=== PATIENT | female | born 1965 | race Caucasian/White ===

== ENCOUNTER → 2016-12-02 | Outpatient (CLI) | payer SELFPAY ==
[~2016-12-02] MED LIST: ADV250INH INH; AVEL1TAB PO; LORA1TAB12 PO; NICO21DI5 TD; OMEP40CA2 PO; PARO20TA2 PO; PRED20TA PO; PROA1AER INH; TYLE325T5 PO; ZITHTAB PO
[2016-12-02 14:39] LABS: MEAN CORPUSCULAR HEMOGLOBIN 31.4 pg (27.0-33.0); MEAN CORPUSCULAR HGB CONC 34.5 g/dl (32.0-36.5); MEAN CORPUSCULAR VOLUME 90.9 fl (80.0-96.0); WHITE BLOOD COUNT 7.1 K/mm3 (4.0-10.0)
[2016-12-02 14:41] LABS: ALBUMIN 3.9 GM/DL (3.2-5.2); ALBUMIN/GLOBULIN RATIO 1.39 (1.00-1.93); ALKALINE PHOSPHATASE 137 U/L (45-117); ALT/SGPT 13 U/L (12-78); ANION GAP 10 MEQ/L (8-16); AST/SGOT 8 U/L (15-37); BILIRUBIN,TOTAL 0.4 MG/DL (0.2-1.0); BLOOD UREA NITROGEN 9 MG/DL (7-18); CALCIUM LEVEL 9.5 MG/DL (8.5-10.1); CARBON DIOXIDE LEVEL 29 MEQ/L (21-32); CHLORIDE LEVEL 105 MEQ/L (98-107); CHOLESTEROL LEVEL 224 MG/DL (<200); CREATININE FOR GFR 0.56 MG/DL (0.55-1.02); GLOMERULAR FILTRATION RATE > 60.0 (>51); GLUCOSE, FASTING 77 MG/DL (70-105); POTASSIUM SERUM 4.2 MEQ/L (3.5-5.1); SODIUM LEVEL 144 MEQ/L (136-145); TOTAL PROTEIN 6.7 GM/DL (6.4-8.2); TRIGLYCERIDES LEVEL 121 MG/DL (<150)
[2016-12-02 15:11] LABS: BASOPHILS 2 % (0-4); EOSINOPHILS 2 % (0-5)
[2016-12-02 15:12] LABS: ANISOCYTOSIS 1+
== END ==
LOC: M LAB 12:46
PROVIDERS: ATTEND Physician Assistant Medical
DX: E66.9 Obesity, unspecified (principal); E55.9 Vitamin D deficiency, unspecified

== ENCOUNTER 2017-10-19 07:10 | Inpatient (IN) | payer SELFPAY ==
[~2017-10-19] VITALS: Ht 165.1 cm; Wt 105.0 kg
[~2017-10-19 07:10] MED LIST changes: -AVEL1TAB PO; +AVEL1TAB3 PO; -PARO20TA2 PO; +PARO20TA3 PO; -PROA1AER INH; +PROAAER10 INH
[2017-10-19] MEDS ORDERED: VITA1CAP40 PO (07:31)
[2017-10-19] MEDS ORDERED: NS 500 ML IV ONE (07:45)
[2017-10-19] MEDS ORDERED: ACETAMINOPHEN 325 MG TAB As Ordered ONE (07:59)
[2017-10-19] MEDS ORDERED: ACETAMINOPHEN TAB 650MG DOSE (2X325MG) PO ONE (08:00)
[2017-10-19 08:04] LABS: BASO % 0.2 % (0.0-1.0); IMMATURE GRANULOCYTE % 0.3 % (0-0); LYMPH # 0.8 10^3/uL (1.5-4.5); MEAN CORPUSCULAR HEMOGLOBIN 30.3 pg (27.0-33.0); MEAN CORPUSCULAR HGB CONC 33.5 g/dl (32.0-36.5); MEAN CORPUSCULAR VOLUME 90.2 fl (80.0-96.0); MONO # 0.8 10^3/uL (0.0-0.8); NEUTROPHILS # 8.5 10^3/uL (1.8-7.7); NEUTROPHILS % 83.5 % (36.0-66.0); PLATELET COUNT, AUTOMATED 122 10^3/uL (150-450); RED CELL DISTRIBUTION WIDTH 12.9 % (11.5-14.5); WHITE BLOOD COUNT 10.2 10^3/uL (4.0-10.0)
[2017-10-19] MEDS ORDERED: IPRATROPIUM 0.5MG/ALBUTEROL 2.5MG INH SOL UD 3ML (DUONEB)(J7620) NEB ONE (08:15)
[2017-10-19] MEDS ORDERED: methylPREDNISolone INJ 125 MG/2 ML VIAL (J2930) IV ONE (08:15)
[2017-10-19 08:30] LABS: ALBUMIN 3.3 GM/DL (3.2-5.2); ALBUMIN/GLOBULIN RATIO 0.85 (1.00-1.93); ALKALINE PHOSPHATASE 107 U/L (45-117); ALT/SGPT 20 U/L (12-78); AST/SGOT 22 U/L (7-37); BILIRUBIN,DIRECT < 0.1 MG/DL (0.0-0.2); BILIRUBIN,TOTAL 0.3 MG/DL (0.2-1.0); TOTAL PROTEIN 7.2 GM/DL (6.4-8.2)
--- NOTE | 2017-10-19 09:04 | REP ---
Chest, PA and lateral, 10/19/2017: Comparison 03/10/2014, 02/11/2007. Clinical history: Dyspnea, cough. Findings: Two-views show the lung lanza with slight elevation of the right diaphragm. Bibasilar air space opacities, greater on the right than left suggesting basilar infiltrates or atelectasis. I do not see definite effusions. The aortic arch is mildly tortuous and without aneurysm. Airway intact. The study shows pulmonary venous hypertension. No stella edema. Airway midline. Bony thorax without compression deformity or degenerative changes in the spine. Impression: 1. Patchy bibasilar infiltrates, right greater than left, without gross effusion. 2. Pulmonary venous hypertension without cardiomegaly or stella edema. Signed by Shayan Billy MD 10/19/2017 08:25 P
[2017-10-19] MEDS ORDERED: ALKATAB PO (09:49)
[2017-10-19] MEDS ORDERED: PARO40TA2 PO (09:49)
[2017-10-19 10:26] LABS: ANION GAP 9 MEQ/L (8-16); BLOOD UREA NITROGEN 6 MG/DL (7-18); CARBON DIOXIDE LEVEL 28 MEQ/L (21-32); CHLORIDE LEVEL 100 MEQ/L (98-107); GLOMERULAR FILTRATION RATE > 60.0 (>51); GLUCOSE, FASTING 138 MG/DL (70-105); POTASSIUM SERUM 3.6 MEQ/L (3.5-5.1); SODIUM LEVEL 137 MEQ/L (136-145)
[2017-10-19] MEDS ORDERED: LevoFLOXacin IV 750 MG in APPROPRIATE DILUENT 1 EA IV ONE (11:00)
[2017-10-19] MEDS ORDERED: ACETAMINOPHEN TAB 650MG DOSE (2X325MG) PO PRN (11:30)
[2017-10-19] MEDS ORDERED: LORazepam 1 MG TAB PO PRN (11:30)
[2017-10-19] MEDS ORDERED: SODIUM CHLORIDE 0.9% 1000 ML IV ONE (11:30)
[2017-10-19] MEDS ORDERED: IPRATROPIUM 0.5MG/ALBUTEROL 2.5MG INH SOL UD 3ML (DUONEB)(J7620) NEB PRN (11:30)
[2017-10-19 12:02] LABS: INR 1.06
[2017-10-19] MEDS: PARoxetine 20 MG TAB PO SCH (12:07)
[2017-10-19] MEDS: ENOXAPARIN 40 MG/0.4 ML SYRINGE (J1650) SC SCH (12:07)
--- NOTE | 2017-10-19 12:34 | ECGEPIP ---
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
[2017-10-19] MEDS: NS 1,000 ML IV SCH (13:45)
[2017-10-19] MEDS: IPRATROPIUM 0.5MG/ALBUTEROL 2.5MG INH SOL UD 3ML (DUONEB)(J7620) NEB SCH ×2 (13:54→19:38)
[2017-10-19 14:15] VITALS: BP 110/57
--- NOTE | 2017-10-19 14:15 | HPEPDOC ---
General Date of Admission Oct 19, 2017 at 13:04 Chief Complaint The patient is a 52-year-old female Presented to the emergency room with complaints of shortness of breath and productive cough History of Present Illness Patient is a 52-year-old female with a PMHx of COPD and Anxiety / Depression who presented to the ER with complaints of shortness of breath for 1- 2 weeks duration associated with a productive cough. She describes the sputum as brown/green without any evidence of blood. Patient also noted associated fevers at home as well as chills and sweats. Patient denies any lower extremity swelling has excretes frequent nighttime awakenings because of shortness of breath. She has also reported increased use of her inhalers. Patient last seen her primary care provider Joyce Daniel one month ago. However, she has not have an established pulmonary physician. Patient noted dizziness and lightheadedness, but she denies any loss of consciousness. He has been expressing palpitations but does not express any chest pain. Denies any nausea, vomiting, abdominal pain, constipation or dysuria. She has extensive single episode of diarrhea this morning, described as a loose stool without any evidence of blood. Patient denies any change in weight, but she does not report appetite Home Medications Scheduled Ergocalciferol (Vitamin D) 50,000 Unit Cap, 50,000 UNIT PO QWEEK, (Reported) SUNDAYS Paroxetine (Paroxetine HCl) 40 Mg Tab, 40 MG PO DAILY, (Reported) Scheduled PRN ([place]ode[place] Plus Severe 5-2-10-250 mg) 1 Tab Tab, 1 TAB PO PRN PRN for COLD, (Reported) Acetaminophen (Tylenol) 325 Mg Tab, 1,000 MG PO Q6H PRN for PAIN OR FEVER, ( Reported) Albuterol Sulfate (Proair Hfa) 108 Mcg/Act Aer, 2 PUFFS INH Q4H PRN for SHORTNESS OF BREATH, (Reported) Lorazepam (Lorazepam) 1 Mg Tab, 1 MG PO BID PRN for ANXIETY, (Reported) Allergies Coded Allergies: No Known Allergies (Unverified , 09/15/13) Past Medical History Medical History COPD and Anxiety / Depression Surgical History Cholecystectomy 2013 section 1990 Hemorrhoid banding 2015 Family History - Mother, unknown medical history - Father, liver issues - No history of malignancies Social History - Denies the use of illicit drugs or alcohol; current smoker of 30 years at 1-2 PPD - Denies recent travel or sick contacts - Lives with in [place] - Occupation; [id number] Review of Symptoms Other systems 10 point review of systems negative; otherwise stated in HPI Vital Signs - Vitals: BP 134/59, HR 104, RR 18, Sat 94%NC2L, Temp 103.5 - General: Lying in bed, No acute distress, Speaking in full sentences, AAOx3 - HEENT: NC, AT, PERRLA, EOMI - CVS: Tachycardic, Regular, +S1S2 - Lungs: Diminished breath sounds bilaterally; no appreciable rhonchi or wheezing could be heard - Abdomen: Soft, Non-distended, Non-tender - Extremities: No lower extremity edema, No calf tenderness - Neuro: No focal motor or sensory deficit - Skin: No visible rashes Laboratory Data Labs 24H Laboratory Tests 2 10/19/17 07:52: Immature Granulocyte % (Auto) 0.3H, White Blood Count 10.2H, Red Blood Count 5.42H, Hemoglobin 16.4H, Hematocrit 48.9H, Mean Corpuscular Volume 90.2, Mean Corpuscular Hemoglobin 30.3, Mean Corpuscular Hemoglobin Concent 33.5, Red Cell Distribution Width 12.9, Platelet Count 122L, Neutrophils (%) (Auto) 83.5H, Lymphocytes (%) (Auto) 8.0L, Monocytes (%) (Auto) 8.0H, Eosinophils (%) (Auto) 0.0, Basophils (%) (Auto) 0.2, Neutrophils # (Auto) 8.5H, Lymphocytes # (Auto) 0.8L, Monocytes # (Auto) 0.8, Eosinophils # (Auto) 0.0, Basophils # (Auto) 0.0, Immature Granulocyte # (Auto) 0.0, Nucleated Red Blood Cells % (auto) 0.0, Anion Gap 9, Glomerular Filtration Rate > 60.0, Lactic Acid Level 1.0, Blood Urea Nitrogen 6L, Creatinine 0.60, Sodium Level 137, Potassium Level 3.6, Chloride Level 100, Carbon Dioxide Level 28, Calcium Level 8.0L, Total Creatine Kinase 203H, Aspartate Amino Transf (AST/SGOT) 22, Alanine Aminotransferase (ALT /SGPT) 20, Alkaline Phosphatase 107, Total Bilirubin 0.3, Direct Bilirubin < 0.1 , Creatine Kinase MB 1.0, Creatine Kinase MB Relative Index 0.49, Troponin I < 0.02, OM-Zmt-S-Type Natriuretic Peptide 43, Total Protein 7.2, Albumin 3.3, Albumin/Globulin Ratio 0.85L 10/19/17 11:36: Prothrombin Time 13.9, Prothromb Time International Ratio 1.06 10/19/17 13:50: CBC/BMP Laboratory Tests 10/19/17 07:52 Red Blood Count 5.42 H, Mean Corpuscular Volume 90.2, Mean Corpuscular Hemoglobin 30.3, Mean Corpuscular Hemoglobin Concent 33.5, Red Cell Distribution Width 12.9, Neutrophils (%) (Auto) 83.5 H, Lymphocytes (%) (Auto) 8.0 L, Monocytes (%) (Auto) 8.0 H, Eosinophils (%) (Auto) 0.0, Basophils (%) ( Auto) 0.2, Neutrophils # (Auto) 8.5 H, Lymphocytes # (Auto) 0.8 L, Monocytes # ( Auto) 0.8, Eosinophils # (Auto) 0.0, Basophils # (Auto) 0.0, Calcium Level 8.0 L , Total Creatine Kinase 203 H Microbiology Microbiology 10/19/17 Blood Culture, Received Pending 10/19/17 Blood Culture, Received Pending 10/19/17 Gram Stain - Final, Resulted 10/19/17 Sputum Culture, Resulted Pending Plan / VTE VTE Prophylaxis Ordered?: Yes Plan Plan Dyspnea - likely 2/2 acute hypoxic respiratory failure likely 2/2 community acquired pneumonia, possible acute COPD exacerbation - Presented to the ER with shortness of breath, productive cough and fevers and chills at home - Physical reveals diminished air entry bilaterally, was noted to have a fever in the emergency room - WBC count of 10.2 with a neutrophil predominance, no lactic acidosis - CXR 10/19: Patchy bibasilar infiltrates, right greater than left without gross effusion, pulmonary venous hypertension without cardiomegaly or stella edema - s/p Levaquin 750 IV and Methylprednisolone 125 in ER - Blood cultures and sputum cultures pending - Will continue with Levaquin and Solu-Medrol every 8 hours - Will continue with DuoNeb scheduled and when necessary - Will give gentle IV fluid hydration Polycythemia - likely 2/2 hemo-concentration - Will continue with gentle IV fluid hydration Thrombocytopenia - Review of records indicates that shes got a history of this back in 2013 - No evidence of bleeding - Well send for hepatitis panel and HIV test (advised patient that we will be testing for these) - Will follow CBC Anxiety / Depression - c/w paroxetine and lorazepam DVT prophylaxis - Will start Lovenox QING SUBRAMANIAN MD Oct 19, 2017 14:15
[2017-10-19 16:00] VITALS: BP 125/63; PULSE 86
[2017-10-19] MEDS: methylPREDNISolone INJ 125 MG/2 ML VIAL (J2930) IV SCH ×2 (16:43→23:41)
[2017-10-19 19:45] VITALS: O2SAT 93
[2017-10-19 20:00] VITALS: BP 113/64
[2017-10-20] VITALS: BP 105/59
[2017-10-20] MEDS: IPRATROPIUM 0.5MG/ALBUTEROL 2.5MG INH SOL UD 3ML (DUONEB)(J7620) NEB SCH ×4 (00:56→19:14)
[2017-10-20] MEDS: NS 1,000 ML IV SCH (00:59)
[2017-10-20 04:00] VITALS: BP 126/61
[2017-10-20 07:27] LABS: BASO % 0.2 % (0.0-1.0); IMMATURE GRANULOCYTE % 0.5 % (0-0); LYMPH # 1.1 10^3/uL (1.5-4.5); LYMPH % 8.4 % (24.0-44.0); MEAN CORPUSCULAR HEMOGLOBIN 29.9 pg (27.0-33.0); MEAN CORPUSCULAR HGB CONC 32.8 g/dl (32.0-36.5); MEAN CORPUSCULAR VOLUME 91.1 fl (80.0-96.0); MONO # 0.5 10^3/uL (0.0-0.8); MONO % 3.7 % (0.0-5.0); NEUTROPHILS # 11.2 10^3/uL (1.8-7.7); NEUTROPHILS % 87.2 % (36.0-66.0); PLATELET COUNT, AUTOMATED 115 10^3/uL (150-450); RED CELL DISTRIBUTION WIDTH 12.9 % (11.5-14.5); WHITE BLOOD COUNT 12.8 10^3/uL (4.0-10.0)
[2017-10-20 07:34] LABS: ALBUMIN 2.9 GM/DL (3.2-5.2); ALBUMIN/GLOBULIN RATIO 0.76 (1.00-1.93); ALKALINE PHOSPHATASE 87 U/L (45-117); ALT/SGPT 19 U/L (12-78); ANION GAP 6 MEQ/L (8-16); AST/SGOT 19 U/L (7-37); BILIRUBIN,TOTAL 0.2 MG/DL (0.2-1.0); BLOOD UREA NITROGEN 8 MG/DL (7-18); CALCIUM LEVEL 8.1 MG/DL (8.5-10.1); CARBON DIOXIDE LEVEL 29 MEQ/L (21-32); CHLORIDE LEVEL 108 MEQ/L (98-107); CREATININE FOR GFR 0.52 MG/DL (0.55-1.02); GLOMERULAR FILTRATION RATE > 60.0 (>51); GLUCOSE, FASTING 149 MG/DL (70-105); POTASSIUM SERUM 3.9 MEQ/L (3.5-5.1); SODIUM LEVEL 143 MEQ/L (136-145); TOTAL PROTEIN 6.7 GM/DL (6.4-8.2)
[2017-10-20 08:00] VITALS: BP 124/60
[2017-10-20] MEDS: methylPREDNISolone INJ 125 MG/2 ML VIAL (J2930) IV SCH ×2 (08:17→16:00)
[2017-10-20] MEDS: ENOXAPARIN 40 MG/0.4 ML SYRINGE (J1650) SC SCH (08:18)
[2017-10-20] MEDS: PARoxetine 20 MG TAB PO SCH (08:18)
[2017-10-20] MEDS: NICOTINE 21MG/24HR 1 EA TRANSDERMAL TD SCH (12:00)
[2017-10-20] MEDS: LevoFLOXacin IV 750 MG in APPROPRIATE DILUENT 1 EA IV SCH (12:00)
--- NOTE | 2017-10-20 12:51 | IPNPDOC ---
Text Note Date of Service The patient was seen on 10/20/17. NOTE Subjective: Patient is a 52-year-old female with a PMHx of COPD and Anxiety / Depression who presented to the ER with complaints of shortness of breath for 1- 2 weeks duration associated with a productive cough. She was admitted for acute COPD exacerbation and community acquired pneumonia. Patient was seen and examined at the bedside. Clinically, she notes improvement in her breathing. She denies any wheezing. Does note that she is still experiencing a mild cough. Objective: Vitals (See below) General: Lying in bed, no acute distress, comfortable, AAOx3 HEENT: NC, AT CVS: RRR, +S1S2 Lungs: Fair air entry b/l, expiratory wheezing bilaterally Abdomen: Soft, ND, NT Extremities: - Edema, - Calf tenderness Assessment and plan: Dyspnea - likely 2/2 acute hypoxic respiratory failure - likely 2/2 community acquired pneumonia and acute COPD exacerbation - Clinically has had improvement in her breathing, still notes a mild cough - Physical reveals wheezing bilaterally - CXR 10/19: Patchy bibasilar infiltrates, right greater than left without gross effusion, pulmonary venous hypertension without cardiomegaly or stella edema - Blood cultures 10/19: Negative at 24 hours; Sputum cultures 10/19: pending - c/w Levaquin 750IV and Solu-Medrol every 8 hours - c/w DuoNeb schedule & PRN - Will discontinue IV fluid hydration today s/p Polycythemia - likely 2/2 hemo-concentration - Will discontinue IV fluid hydration today Thrombocytopenia - Review of records indicates that shes got a history of this back in 2013 - No evidence of bleeding - Patient refused to be tested for hepatitis and HIV test - Will follow CBC Anxiety / Depression - c/w paroxetine and lorazepam DVT prophylaxis - c/w Lovenox VS,Fishbone, I+O VS, Fishbone, I+O Laboratory Tests 10/20/17 06:39 Red Blood Count 5.18, Mean Corpuscular Volume 91.1, Mean Corpuscular Hemoglobin 29.9, Mean Corpuscular Hemoglobin Concent 32.8, Red Cell Distribution Width 12.9 , Neutrophils (%) (Auto) 87.2 H, Lymphocytes (%) (Auto) 8.4 L, Monocytes (%) ( Auto) 3.7, Eosinophils (%) (Auto) 0.0, Basophils (%) (Auto) 0.2, Neutrophils # ( Auto) 11.2 H, Lymphocytes # (Auto) 1.1 L, Monocytes # (Auto) 0.5, Eosinophils # (Auto) 0.0, Basophils # (Auto) 0.0, Calcium Level 8.1 L, Aspartate Amino Transf (AST/SGOT) 19, Alanine Aminotransferase (ALT/SGPT) 19, Alkaline Phosphatase 87, Total Bilirubin 0.2, Total Protein 6.7, Albumin 2.9 L Vital Signs Date Time Temp Pulse Resp B/P (MAP) Pulse Ox O2 Delivery O2 Flow Rate FiO2 10/20/17 08:49 16 10/20/17 08:35 94 10/20/17 04:00 98.1 126/61 (82) 96 Nasal Cannula 2.0 10/19/17 16:00 91 QING SUBRAMANIAN MD Oct 20, 2017 12:51
[2017-10-20 16:55] VITALS: BP 107/59
[2017-10-20 20:00] VITALS: BP 123/58
[2017-10-21] VITALS: BP 141/83
[2017-10-21] MEDS: methylPREDNISolone INJ 125 MG/2 ML VIAL (J2930) IV SCH ×3 (00:08→20:00)
[2017-10-21] MEDS: IPRATROPIUM 0.5MG/ALBUTEROL 2.5MG INH SOL UD 3ML (DUONEB)(J7620) NEB SCH ×4 (01:06→20:28)
[2017-10-21] MEDS: LORazepam 0.5 MG TAB PO PRN (06:52)
[2017-10-21 08:00] VITALS: BP 124/62
[2017-10-21 08:01] LABS: BASO % 0.1 % (0.0-1.0); IMMATURE GRANULOCYTE % 0.5 % (0-0); LYMPH # 0.9 10^3/uL (1.5-4.5); LYMPH % 6.1 % (24.0-44.0); MEAN CORPUSCULAR HGB CONC 32.3 g/dl (32.0-36.5); MEAN CORPUSCULAR VOLUME 92.7 fl (80.0-96.0); MONO # 0.7 10^3/uL (0.0-0.8); MONO % 4.6 % (0.0-5.0); NEUTROPHILS # 12.6 10^3/uL (1.8-7.7); NEUTROPHILS % 88.7 % (36.0-66.0); PLATELET COUNT, AUTOMATED 108 10^3/uL (150-450); RED CELL DISTRIBUTION WIDTH 13.2 % (11.5-14.5); WHITE BLOOD COUNT 14.2 10^3/uL (4.0-10.0)
[2017-10-21] MEDS: PARoxetine 20 MG TAB PO SCH (08:22)
[2017-10-21] MEDS: NICOTINE 21MG/24HR 1 EA TRANSDERMAL TD SCH (08:22)
[2017-10-21] MEDS: ENOXAPARIN 40 MG/0.4 ML SYRINGE (J1650) SC SCH (08:22)
[2017-10-21 08:38] LABS: ALBUMIN 2.8 GM/DL (3.2-5.2); ALBUMIN/GLOBULIN RATIO 0.76 (1.00-1.93); ALKALINE PHOSPHATASE 85 U/L (45-117); ALT/SGPT 26 U/L (12-78); ANION GAP 6 MEQ/L (8-16); AST/SGOT 28 U/L (7-37); BILIRUBIN,TOTAL 0.3 MG/DL (0.2-1.0); BLOOD UREA NITROGEN 9 MG/DL (7-18); CALCIUM LEVEL 8.3 MG/DL (8.5-10.1); CARBON DIOXIDE LEVEL 32 MEQ/L (21-32); CHLORIDE LEVEL 105 MEQ/L (98-107); CREATININE FOR GFR 0.41 MG/DL (0.55-1.02); GLOMERULAR FILTRATION RATE > 60.0 (>51); GLUCOSE, FASTING 130 MG/DL (70-105); MAGNESIUM LEVEL 2.3 MG/DL (1.8-2.4); POTASSIUM SERUM 3.7 MEQ/L (3.5-5.1); SODIUM LEVEL 143 MEQ/L (136-145); TOTAL PROTEIN 6.5 GM/DL (6.4-8.2)
[2017-10-21] MEDS: LevoFLOXacin IV 750 MG in APPROPRIATE DILUENT 1 EA IV SCH (11:26)
--- NOTE | 2017-10-21 13:04 | IPNPDOC ---
Text Note Date of Service The patient was seen on 10/21/17. NOTE Subjective: Patient is a 52-year-old female with a PMHx of COPD and Anxiety / Depression who presented to the ER with complaints of shortness of breath for 1- 2 weeks duration associated with a productive cough. She was admitted for acute COPD exacerbation and community acquired pneumonia. Patient was seen and examined at the bedside. Notes that she feels better than when she first came in. Still has wheezing. Notes improvement in her shortness of breath. Denies any chest pain or palpitations. Objective: Vitals (See below) General: Lying in bed, no acute distress, comfortable, AAOx3 HEENT: NC, AT CVS: RRR, +S1S2 Lungs: Fair air entry b/l, expiratory wheezing bilaterally again appreciated Abdomen: Soft, ND, NT Extremities: - Edema, - Calf tenderness Assessment and plan: Dyspnea - likely 2/2 acute hypoxic respiratory failure - likely 2/2 community acquired pneumonia and acute COPD exacerbation - Breathing continues to improve; but physical still reveals expiratory wheezing - Still on supplemental oxygen; will continue to titrate - CXR 10/19: Patchy bibasilar infiltrates, right greater than left without gross effusion, pulmonary venous hypertension without cardiomegaly or stella edema - Blood cultures 10/19: Negative at 48 hours; Sputum cultures 10/19: Strep pneumonia - c/w Levaquin 750IV; c/w Solumedrol - will reduce frequency - c/w DuoNeb schedule & PRN s/p Polycythemia - likely 2/2 hemo-concentration - s/p IV fluid hydration today Thrombocytopenia - Review of records indicates that shes got a history of this back in 2013 - Again no evidence of bleeding - Patient refused to be tested for hepatitis and HIV test Anxiety / Depression - c/w paroxetine and lorazepam DVT prophylaxis - Will start SCDs - Will DC Lovenox VS,Fishbone, I+O VS, Fishbone, I+O Laboratory Tests 10/21/17 07:35 Red Blood Count 4.94, Mean Corpuscular Volume 92.7, Mean Corpuscular Hemoglobin 30.0, Mean Corpuscular Hemoglobin Concent 32.3, Red Cell Distribution Width 13.2 , Neutrophils (%) (Auto) 88.7 H, Lymphocytes (%) (Auto) 6.1 L, Monocytes (%) ( Auto) 4.6, Eosinophils (%) (Auto) 0.0, Basophils (%) (Auto) 0.1, Neutrophils # ( Auto) 12.6 H, Lymphocytes # (Auto) 0.9 L, Monocytes # (Auto) 0.7, Eosinophils # (Auto) 0.0, Basophils # (Auto) 0.0, Calcium Level 8.3 L, Aspartate Amino Transf (AST/SGOT) 28, Alanine Aminotransferase (ALT/SGPT) 26, Alkaline Phosphatase 85, Total Bilirubin 0.3, Total Protein 6.5, Albumin 2.8 L Vital Signs Date Time Temp Pulse Resp B/P (MAP) Pulse Ox O2 Delivery O2 Flow Rate FiO2 10/21/17 08:00 97.7 76 22 124/62 (82) 98 Nasal Cannula 2.0 10/19/17 16:00 91 I&O- Last 24 Hours up to 6 AM 10/22/17 06:00 Intake Total 120 ml Output Total 300 ml Balance -180 ml QING SUBRAMANIAN MD Oct 21, 2017 13:04
[2017-10-21 16:00] VITALS: BP 133/72
[2017-10-21 20:00] VITALS: BP 136/65
[2017-10-22] MEDS: IPRATROPIUM 0.5MG/ALBUTEROL 2.5MG INH SOL UD 3ML (DUONEB)(J7620) NEB SCH ×4 (02:50→20:09)
[2017-10-22 04:00] VITALS: BP 132/68
[2017-10-22] MEDS ORDERED: LevoFLOXacin 750 MG TABLET PO SCH (06:00)
[2017-10-22 07:30] LABS: BASO % 0.3 % (0.0-1.0); IMMATURE GRANULOCYTE % 0.9 % (0-0); LYMPH # 1.1 10^3/uL (1.5-4.5); LYMPH % 9.9 % (24.0-44.0); MEAN CORPUSCULAR HEMOGLOBIN 30.1 pg (27.0-33.0); MEAN CORPUSCULAR HGB CONC 32.4 g/dl (32.0-36.5); MONO # 0.8 10^3/uL (0.0-0.8); NEUTROPHILS # 9.1 10^3/uL (1.8-7.7); NEUTROPHILS % 81.9 % (36.0-66.0); PLATELET COUNT, AUTOMATED 123 10^3/uL (150-450); WHITE BLOOD COUNT 11.1 10^3/uL (4.0-10.0)
[2017-10-22] MEDS: methylPREDNISolone INJ 125 MG/2 ML VIAL (J2930) IV SCH ×2 (07:55→21:40)
[2017-10-22 07:56] LABS: ALBUMIN 2.9 GM/DL (3.2-5.2); ALBUMIN/GLOBULIN RATIO 0.85 (1.00-1.93); ALKALINE PHOSPHATASE 82 U/L (45-117); ALT/SGPT 50 U/L (12-78); ANION GAP 6 MEQ/L (8-16); AST/SGOT 50 U/L (7-37); BILIRUBIN,TOTAL 0.4 MG/DL (0.2-1.0); BLOOD UREA NITROGEN 10 MG/DL (7-18); CALCIUM LEVEL 8.5 MG/DL (8.5-10.1); CARBON DIOXIDE LEVEL 33 MEQ/L (21-32); CHLORIDE LEVEL 104 MEQ/L (98-107); CREATININE FOR GFR 0.49 MG/DL (0.55-1.02); GLOMERULAR FILTRATION RATE > 60.0 (>51); GLUCOSE, FASTING 109 MG/DL (70-105); MAGNESIUM LEVEL 2.5 MG/DL (1.8-2.4); POTASSIUM SERUM 3.5 MEQ/L (3.5-5.1); SODIUM LEVEL 143 MEQ/L (136-145); TOTAL PROTEIN 6.3 GM/DL (6.4-8.2)
[2017-10-22 08:00] VITALS: BP 133/68
[2017-10-22] MEDS: NICOTINE 21MG/24HR 1 EA TRANSDERMAL TD SCH (09:00)
[2017-10-22] MEDS: PARoxetine 20 MG TAB PO SCH (10:11)
[2017-10-22] MEDS: LevoFLOXacin IV 750 MG in APPROPRIATE DILUENT 1 EA IV SCH (10:52)
--- NOTE | 2017-10-22 14:49 | IPNPDOC ---
Text Note Date of Service The patient was seen on 10/22/17. NOTE Subjective: Patient is a 52-year-old female with a PMHx of COPD and Anxiety / Depression who presented to the ER with complaints of shortness of breath for 1- 2 weeks duration associated with a productive cough. She was admitted for acute COPD exacerbation and community acquired pneumonia. Patient was seen and examined at the bedside. She continues to have improvement in her breathing, however she still requires supplemental oxygen. She notes that her cough is doing a little better. She is anxious to get home. Objective: Vitals (See below) General: Lying in bed, no acute distress, comfortable, AAOx3 HEENT: NC, AT CVS: RRR, +S1S2 Lungs: Fair air entry b/l, diffuse expiratory wheezing can be heard at bilateral lung lanza Abdomen: Soft, ND, NT Extremities: - Edema, - Calf tenderness Assessment and plan: Dyspnea - likely 2/2 acute hypoxic respiratory failure - likely 2/2 community acquired pneumonia and acute COPD exacerbation - Subjectively reports feeling better and reduction in cough - Physical still reveals diffuse expiratory wheezing; still requires 2 liters of supplemental oxygen - CXR 10/19: Patchy bibasilar infiltrates, right greater than left without gross effusion, pulmonary venous hypertension without cardiomegaly or stella edema - Blood cultures 10/19: Negative at 72 hours; Sputum cultures 10/19: Strep pneumonia - c/w Levaquin 750; will change to PO - c/w Solumedrol; will keep on current dose today as wheezing has failed to improve still - c/w DuoNeb schedule & PRN - Will add incentive spirometry and acapella; will add Mucinex to break up secretions s/p Polycythemia - likely 2/2 hemo-concentration - s/p IV fluid hydration today Thrombocytopenia - Review of records indicates that shes got a history of this back in 2013 - Again no evidence of bleeding - Patient refused to be tested for hepatitis and HIV test - Count remains stable Anxiety / Depression - c/w paroxetine and lorazepam DVT prophylaxis - c/w SCDs VS,Fishbone, I+O VS, Fishbone, I+O Laboratory Tests 10/22/17 07:02 Red Blood Count 4.98, Mean Corpuscular Volume 93.0, Mean Corpuscular Hemoglobin 30.1, Mean Corpuscular Hemoglobin Concent 32.4, Red Cell Distribution Width 13.0 , Neutrophils (%) (Auto) 81.9 H, Lymphocytes (%) (Auto) 9.9 L, Monocytes (%) ( Auto) 7.0 H, Eosinophils (%) (Auto) 0.0, Basophils (%) (Auto) 0.3, Neutrophils # (Auto) 9.1 H, Lymphocytes # (Auto) 1.1 L, Monocytes # (Auto) 0.8, Eosinophils # (Auto) 0.0, Basophils # (Auto) 0.0, Calcium Level 8.5, Aspartate Amino Transf (AST/SGOT) 50 H, Alanine Aminotransferase (ALT/SGPT) 50, Alkaline Phosphatase 82 , Total Bilirubin 0.4, Total Protein 6.3 L, Albumin 2.9 L Vital Signs Date Time Temp Pulse Resp B/P (MAP) Pulse Ox O2 Delivery O2 Flow Rate FiO2 10/22/17 08:00 97.6 85 20 133/68 (89) 92 Nasal Cannula 2.0 10/19/17 16:00 91 I&O- Last 24 Hours up to 6 AM 10/23/17 06:00 Intake Total 240 ml Output Total 650 ml Balance -410 ml QING SUBRAMANIAN MD Oct 22, 2017 14:49
[2017-10-22 16:00] VITALS: BP 139/70
[2017-10-22] MEDS: guaiFENesin ER 600 MG TAB PO SCH ×2 (16:35→21:00)
[2017-10-22 20:00] VITALS: BP 119/61
[2017-10-23] VITALS: BP 124/68
[2017-10-23] MEDS: LevoFLOXacin 750 MG TABLET PO SCH (06:21)
[2017-10-23 06:57] LABS: MEAN CORPUSCULAR HEMOGLOBIN 29.9 pg (27.0-33.0); MEAN CORPUSCULAR HGB CONC 32.6 g/dl (32.0-36.5); MEAN CORPUSCULAR VOLUME 91.6 fl (80.0-96.0); PLATELET COUNT, AUTOMATED 143 10^3/uL (150-450); RED CELL DISTRIBUTION WIDTH 12.5 % (11.5-14.5); WHITE BLOOD COUNT 7.4 10^3/uL (4.0-10.0)
[2017-10-23 07:07] LABS: ADD MANUAL DIFFER YES; DIFF SLIDE NUMBER 21; POSITIVE MORPH POS FLAG
[2017-10-23 07:23] LABS: ALBUMIN 2.7 GM/DL (3.2-5.2); ALBUMIN/GLOBULIN RATIO 0.77 (1.00-1.93); ALKALINE PHOSPHATASE 83 U/L (45-117); ALT/SGPT 54 U/L (12-78); ANION GAP 7 MEQ/L (8-16); AST/SGOT 42 U/L (7-37); BILIRUBIN,TOTAL 0.5 MG/DL (0.2-1.0); BLOOD UREA NITROGEN 8 MG/DL (7-18); CALCIUM LEVEL 8.5 MG/DL (8.5-10.1); CARBON DIOXIDE LEVEL 33 MEQ/L (21-32); CHLORIDE LEVEL 102 MEQ/L (98-107); CREATININE FOR GFR 0.38 MG/DL (0.55-1.02); GLOMERULAR FILTRATION RATE > 60.0 (>51); GLUCOSE, FASTING 111 MG/DL (70-105); MAGNESIUM LEVEL 2.3 MG/DL (1.8-2.4); POTASSIUM SERUM 3.5 MEQ/L (3.5-5.1); SODIUM LEVEL 142 MEQ/L (136-145); TOTAL PROTEIN 6.2 GM/DL (6.4-8.2)
[2017-10-23 08:00] VITALS: BP 142/80
[2017-10-23] MEDS: IPRATROPIUM 0.5MG/ALBUTEROL 2.5MG INH SOL UD 3ML (DUONEB)(J7620) NEB SCH ×4 (08:00→21:00)
[2017-10-23] MEDS: PARoxetine 20 MG TAB PO SCH (08:27)
[2017-10-23] MEDS: guaiFENesin ER 600 MG TAB PO SCH ×2 (08:27→20:48)
[2017-10-23] MEDS: NICOTINE 21MG/24HR 1 EA TRANSDERMAL TD SCH (08:27)
[2017-10-23] MEDS: methylPREDNISolone INJ 125 MG/2 ML VIAL (J2930) IV SCH ×2 (08:27→15:49)
[2017-10-23] MEDS: ADVAIR HFA 230/21MCG INHALER INH SCH ×2 (09:00→21:00)
--- NOTE | 2017-10-23 10:29 | IPNPDOC ---
Text Note Date of Service The patient was seen on 10/23/17. NOTE Subjective: Patient is a 52-year-old female with a PMHx of COPD and Anxiety / Depression who presented to the ER with complaints of shortness of breath for 1- 2 weeks duration associated with a productive cough. She was admitted for acute COPD exacerbation and community acquired pneumonia. Patient was seen and examined at the bedside. Still has significant amount of chest congestion and wheezing. Notes that her breathing does feel better, but is still requiring supplemental oxygen. She denies any chest pain or palpitations. Objective: Vitals (See below) General: Lying in bed, no acute distress, comfortable, AAOx3 HEENT: NC, AT CVS: RRR, +S1S2 Lungs: Fair air entry b/l, diffuse expiratory wheezing can be heard at bilateral lung lanza Abdomen: Soft, ND, NT Extremities: - Edema, - Calf tenderness Assessment and plan: Dyspnea - likely 2/2 acute hypoxic respiratory failure - likely 2/2 community acquired pneumonia and acute COPD exacerbation - Still notes wheezing and chest congestion - Physical with persistent expiratory wheezing - WBC resolving and CRP improving - CXR /: Patchy bibasilar infiltrates, right greater than left without gross effusion, pulmonary venous hypertension without cardiomegaly or stella edema - Blood cultures 10/19: Negative at 72 hours; Sputum cultures 10/19: Strep pneumonia; Repeat Sputum 10/23: Pending - c/w Levaquin 750 (Day #5) - Will increase frequency of Solumedrol; hold until wheezing resolves - c/w DuoNeb schedule & PRN; Will add Advair to regimen - Will increase dose of Mucinex - c/w incentive spirometry and acapella; s/p Polycythemia - likely 2/2 hemo-concentration - s/p IV fluid hydration today Thrombocytopenia - Review of records indicates that shes got a history of this back in 2013 - Again no evidence of bleeding - Patient refused to be tested for hepatitis and HIV test - Count has been improving Anxiety / Depression - c/w paroxetine and lorazepam DVT prophylaxis - c/w SCDs VS,Fishbone, I+O VS, Fishbone, I+O Laboratory Tests 10/23/17 06:30 Red Blood Count 5.09, Mean Corpuscular Volume 91.6, Mean Corpuscular Hemoglobin 29.9, Mean Corpuscular Hemoglobin Concent 32.6, Red Cell Distribution Width 12.5 , Calcium Level 8.5, Aspartate Amino Transf (AST/SGOT) 42 H, Alanine Aminotransferase (ALT/SGPT) 54, Alkaline Phosphatase 83, Total Bilirubin 0.5, Total Protein 6.2 L, Albumin 2.7 L Vital Signs Date Time Temp Pulse Resp B/P (MAP) Pulse Ox O2 Delivery O2 Flow Rate FiO2 10/23/17 08:35 Nasal Cannula 2.0 10/23/17 08:00 98.6 83 20 142/80 (100) 90 10/19/17 16:00 91 I&O- Last 24 Hours up to 6 AM 10/24/17 06:00 Output Total 250 ml Balance -250 ml QING SUBRAMANIAN MD Oct 23, 2017 10:29
[2017-10-23 16:00] VITALS: BP 148/84
[2017-10-23 20:00] VITALS: BP 136/73
[2017-10-24] VITALS: BP 136/73
[2017-10-24] MEDS: methylPREDNISolone INJ 125 MG/2 ML VIAL (J2930) IV SCH ×2 (00:18→08:28)
[2017-10-24] MEDS: IPRATROPIUM 0.5MG/ALBUTEROL 2.5MG INH SOL UD 3ML (DUONEB)(J7620) NEB SCH ×4 (02:20→20:10)
[2017-10-24] MEDS: LevoFLOXacin 750 MG TABLET PO SCH (05:55)
[2017-10-24 07:12] LABS: MEAN CORPUSCULAR HEMOGLOBIN 29.7 pg (27.0-33.0); MEAN CORPUSCULAR HGB CONC 32.8 g/dl (32.0-36.5); MEAN CORPUSCULAR VOLUME 90.5 fl (80.0-96.0); PLATELET COUNT, AUTOMATED 169 10^3/uL (150-450); RED CELL DISTRIBUTION WIDTH 12.2 % (11.5-14.5); WHITE BLOOD COUNT 8.8 10^3/uL (4.0-10.0)
[2017-10-24 07:22] LABS: ADD MANUAL DIFFER YES; DIFF SLIDE NUMBER 14; POSITIVE MORPH POS FLAG
[2017-10-24 07:36] LABS: ALBUMIN 2.8 GM/DL (3.2-5.2); ALBUMIN/GLOBULIN RATIO 0.78 (1.00-1.93); ALKALINE PHOSPHATASE 86 U/L (45-117); ALT/SGPT 52 U/L (12-78); ANION GAP 4 MEQ/L (8-16); AST/SGOT 27 U/L (7-37); BILIRUBIN,TOTAL 0.6 MG/DL (0.2-1.0); BLOOD UREA NITROGEN 9 MG/DL (7-18); CALCIUM LEVEL 8.6 MG/DL (8.5-10.1); CARBON DIOXIDE LEVEL 33 MEQ/L (21-32); CHLORIDE LEVEL 102 MEQ/L (98-107); CREATININE FOR GFR 0.47 MG/DL (0.55-1.02); GLOMERULAR FILTRATION RATE > 60.0 (>51); GLUCOSE, FASTING 126 MG/DL (70-105); MAGNESIUM LEVEL 2.3 MG/DL (1.8-2.4); POTASSIUM SERUM 3.5 MEQ/L (3.5-5.1); SODIUM LEVEL 139 MEQ/L (136-145); TOTAL PROTEIN 6.4 GM/DL (6.4-8.2)
[2017-10-24 08:00] VITALS: BP 144/80
[2017-10-24] MEDS: NICOTINE 21MG/24HR 1 EA TRANSDERMAL TD SCH (08:28)
[2017-10-24] MEDS: guaiFENesin ER 600 MG TAB PO SCH ×2 (08:28→19:49)
[2017-10-24] MEDS: PARoxetine 20 MG TAB PO SCH (08:28)
--- NOTE | 2017-10-24 09:13 | IPNPDOC ---
Text Note Date of Service The patient was seen on 10/24/17. NOTE Subjective: Patient is a 52-year-old female with a PMHx of COPD and Anxiety / Depression who presented to the ER with complaints of shortness of breath for 1- 2 weeks duration associated with a productive cough. She was admitted for acute COPD exacerbation and community acquired pneumonia. Patient was seen and examined at the bedside. Has improvement in her breathing, has been titrated down to 1 L of supplemental oxygen. Still is having a productive cough. Notes she is expectorating more. Denies any chest pain. Objective: Vitals (See below) General: Lying in bed, no acute distress, comfortable, AAOx3 HEENT: NC, AT CVS: RRR, +S1S2 Lungs: Fair air entry b/l, decrease in expiratory wheezing - however still present Abdomen: Soft, ND, NT Extremities: - Edema, - Calf tenderness Assessment and plan: Dyspnea - likely 2/2 acute hypoxic respiratory failure - likely 2/2 community acquired pneumonia and acute COPD exacerbation - Subjectively notes improvement in her breathing, physical with decreased wheezing - s/p Leukocytosis, CRP continues to trend down - CXR 10/19: Patchy bibasilar infiltrates, right greater than left without gross effusion, pulmonary venous hypertension without cardiomegaly or stella edema - Blood cultures 10/19: Negative at 72 hours; Sputum cultures 10/19: Strep pneumonia; Repeat Sputum 10/23: Pending - c/w Levaquin 750 (Day #6) - Will c/w Solumedrol q8h; will decrease dose from 60 to 40 - c/w Advair, Mucinex, DuoNeb schedule & PRN - c/w incentive spirometry and acapella - Continue to titrate off oxygen Polycythemia - possibly 2/2 ALAN, possibly 2/2 hemo-concentration - s/p IV fluid hydration today - Will perform nocturnal pulse oximetry study tonight s/p Thrombocytopenia - Review of records indicates that shes got a history of this back in 2013 - Patient refused to be tested for hepatitis and HIV test Anxiety / Depression - c/w Paroxetine and Lorazepam DVT prophylaxis - c/w SCDs VS,Fishbone, I+O VS, Fishbone, I+O Laboratory Tests 10/24/17 06:55 Red Blood Count 5.46 H, Mean Corpuscular Volume 90.5, Mean Corpuscular Hemoglobin 29.7, Mean Corpuscular Hemoglobin Concent 32.8, Red Cell Distribution Width 12.2, Calcium Level 8.6, Aspartate Amino Transf (AST/SGOT) 27 , Alanine Aminotransferase (ALT/SGPT) 52, Alkaline Phosphatase 86, Total Bilirubin 0.6, Total Protein 6.4, Albumin 2.8 L Vital Signs Date Time Temp Pulse Resp B/P (MAP) Pulse Ox O2 Delivery O2 Flow Rate FiO2 10/24/17 08:00 99.2 75 20 144/80 (101) 91 Nasal Cannula 1.0 10/19/17 16:00 91 QING SUBRAMANIAN MD Oct 24, 2017 09:13
[2017-10-24] MEDS: ADVAIR HFA 230/21MCG INHALER INH SCH ×2 (09:21→20:11)
[2017-10-24 15:00] VITALS: BP 138/78
[2017-10-24] MEDS: methylPREDNISolone INJ 40 MG/1 ML VIAL (J2920) IV SCH (16:32)
[2017-10-24 20:00] VITALS: BP 127/72
[2017-10-25] VITALS: BP 123/63
[2017-10-25] MEDS: methylPREDNISolone INJ 40 MG/1 ML VIAL (J2920) IV SCH ×3 (00:19→16:02)
[2017-10-25] MEDS: IPRATROPIUM 0.5MG/ALBUTEROL 2.5MG INH SOL UD 3ML (DUONEB)(J7620) NEB SCH ×4 (00:21→20:00)
[2017-10-25] MEDS: LevoFLOXacin 750 MG TABLET PO SCH (06:01)
[2017-10-25 06:43] LABS: BASO % 0.2 % (0.0-1.0); IMMATURE GRANULOCYTE % 1.2 % (0-0); LYMPH # 1.2 10^3/uL (1.5-4.5); LYMPH % 9.7 % (24.0-44.0); MEAN CORPUSCULAR HEMOGLOBIN 29.7 pg (27.0-33.0); MEAN CORPUSCULAR HGB CONC 33.4 g/dl (32.0-36.5); MEAN CORPUSCULAR VOLUME 88.9 fl (80.0-96.0); MONO # 0.8 10^3/uL (0.0-0.8); MONO % 6.3 % (0.0-5.0); NEUTROPHILS # 9.9 10^3/uL (1.8-7.7); NEUTROPHILS % 82.6 % (36.0-66.0); PLATELET COUNT, AUTOMATED 217 10^3/uL (150-450); RED CELL DISTRIBUTION WIDTH 11.9 % (11.5-14.5)
[2017-10-25 07:06] LABS: ALBUMIN 2.8 GM/DL (3.2-5.2); ALKALINE PHOSPHATASE 84 U/L (45-117); ALT/SGPT 52 U/L (12-78); ANION GAP 7 MEQ/L (8-16); AST/SGOT 23 U/L (7-37); BILIRUBIN,TOTAL 0.6 MG/DL (0.2-1.0); BLOOD UREA NITROGEN 9 MG/DL (7-18); CALCIUM LEVEL 8.4 MG/DL (8.5-10.1); CARBON DIOXIDE LEVEL 31 MEQ/L (21-32); CHLORIDE LEVEL 103 MEQ/L (98-107); CREATININE FOR GFR 0.45 MG/DL (0.55-1.02); GLOMERULAR FILTRATION RATE > 60.0 (>51); GLUCOSE, FASTING 120 MG/DL (70-105); MAGNESIUM LEVEL 2.1 MG/DL (1.8-2.4); POTASSIUM SERUM 3.4 MEQ/L (3.5-5.1); SODIUM LEVEL 141 MEQ/L (136-145); TOTAL PROTEIN 6.3 GM/DL (6.4-8.2)
[2017-10-25] MEDS ORDERED: POTASSIUM CHLORIDE 10 MEQ SR TABLET PO ONE (07:45)
[2017-10-25] MEDS: PARoxetine 20 MG TAB PO SCH (07:49)
[2017-10-25] MEDS: guaiFENesin ER 600 MG TAB PO SCH ×2 (07:49→20:27)
[2017-10-25] MEDS: NICOTINE 21MG/24HR 1 EA TRANSDERMAL TD SCH (07:50)
[2017-10-25 08:00] VITALS: BP 129/78
[2017-10-25] MEDS: TIOTROPIUM INHALER/CAPSULE (SPIRIVA) INH SCH (08:00)
[2017-10-25] MEDS: ADVAIR HFA 230/21MCG INHALER INH SCH ×2 (08:22→21:00)
[2017-10-25 10:10] LABS: ABG BASE EXCESS 3.2 (-2.0-2.0); ABG HCO3 27.6 MEQ/L (22.0-26.0); ABG PARTIAL PRESSURE CO2 41.1 mmHg (35.0-45.0); ABG PARTIAL PRESSURE O2 64.2 mmHg (75.0-100.0); ABG STANDARD HCO3 27.2 MEQ/L (22.0-26.0); ABG TOTAL CO2 28.9 MEQ/L (22.0-29.0); ABG pH (ARTERIAL) 7.445 UNITS (7.350-7.450)
--- NOTE | 2017-10-25 10:33 | REP ---
PA and lateral chest: Comparisons are 10/19/2017 and 03/10/2014. There is no evidence of pulmonary edema or vascular engorgement. There is a small parenchymal scar inferiorly in the left lung, unchanged from 03/10/2014. The lung lanza otherwise clear. Cardiac size is upper normal, unchanged. The lor, mediastinum, and bony thorax are unremarkable. Signed by Maycol Gruber MD 10/25/2017 10:24 A
--- NOTE | 2017-10-25 11:29 | IPNPDOC ---
Text Note Date of Service The patient was seen on 10/25/17. NOTE Subjective: Patient is a 52-year-old female with a PMHx of COPD and Anxiety / Depression who presented to the ER with complaints of shortness of breath for 1- 2 weeks duration associated with a productive cough. She was admitted for acute COPD exacerbation and community acquired pneumonia. Patient was seen and examined at the bedside. Notes that wheezing is still persistent and that her cough has become more productive with Mucinex. Will continue with current dose of steroids. Denies any chest pain or palpitations. Objective: Vitals (See below) General: Lying in bed, no acute distress, comfortable, AAOx3 HEENT: NC, AT CVS: RRR, +S1S2 Lungs: Fair air entry b/l, improvement in wheezing bilaterally - but not resolved Abdomen: Soft, ND, NT Extremities: - Edema, - Calf tenderness Assessment and plan: Dyspnea - likely 2/2 acute hypoxic respiratory failure - likely 2/2 community acquired pneumonia and acute COPD exacerbation - Notes that she felt fatigued yesterday and very SOB when she was taken off the oxygen - Physical with persistent wheezing at bilateral lung lanza - Mild elevation in WBC, CRP normalized - ABG without any pCO2 retention; does reveal hypoxia - CXR 10/19: Patchy bibasilar infiltrates, right greater than left without gross effusion, pulmonary venous hypertension without cardiomegaly or stella edema - CXR 10/25: no evidence of pulmonary edema or vascular engorgement, small parencymal scar inferiorly of left lung, lung lanza clear - Blood cultures 10/19: Negative at 5 days; Sputum cultures 10/19: Strep pneumonia ; Repeat Sputum 10/23: Pending - Will discontinue Levaquin 750 after today (Completed 7 day course) - c/w Solumedrol q8h at 40 mg - c/w Advair, Mucinex, DuoNeb schedule & PRN - Will add Spiriva - c/w incentive spirometry and acapella - Continue to titrate off oxygen - Will order ECHO to evaluate for CHF Polycythemia - possibly 2/2 ALAN, possibly 2/2 hemo-concentration - s/p IV fluid hydration today - Nocturnal pulse oximetry study completed 10/24 Night - awaiting report s/p Thrombocytopenia - Review of records indicates that shes got a history of this back in 2013 - Patient refused to be tested for hepatitis and HIV test Anxiety / Depression - c/w Paroxetine and Lorazepam Hypokalemia - will supplement DVT prophylaxis - c/w SCDs VS,Fishbone, I+O VS, Fishbone, I+O Laboratory Tests 10/25/17 06:26 Red Blood Count 5.66 H, Mean Corpuscular Volume 88.9, Mean Corpuscular Hemoglobin 29.7, Mean Corpuscular Hemoglobin Concent 33.4, Red Cell Distribution Width 11.9, Neutrophils (%) (Auto) 82.6 H, Lymphocytes (%) (Auto) 9.7 L, Monocytes (%) (Auto) 6.3 H, Eosinophils (%) (Auto) 0.0, Basophils (%) ( Auto) 0.2, Neutrophils # (Auto) 9.9 H, Lymphocytes # (Auto) 1.2 L, Monocytes # ( Auto) 0.8, Eosinophils # (Auto) 0.0, Basophils # (Auto) 0.0, Calcium Level 8.4 L , Aspartate Amino Transf (AST/SGOT) 23, Alanine Aminotransferase (ALT/SGPT) 52, Alkaline Phosphatase 84, Total Bilirubin 0.6, Total Protein 6.3 L, Albumin 2.8 L Vital Signs Date Time Temp Pulse Resp B/P (MAP) Pulse Ox O2 Delivery O2 Flow Rate FiO2 10/25/17 08:00 97.4 76 22 129/78 (95) 93 Nasal Cannula 1.5 10/19/17 16:00 91 I&O- Last 24 Hours up to 6 AM 10/26/17 06:00 Intake Total 120 ml Balance 120 ml QING SUBRAMANIAN MD Oct 25, 2017 11:29
[2017-10-25] MEDS: FLUCONAZOLE 100 MG TAB PO SCH (12:49)
[2017-10-25 16:00] VITALS: BP 111/53
[2017-10-25 20:00] VITALS: BP 120/60
--- NOTE | 2017-10-25 21:35 | NOCOX ---
DATE OF PROCEDURE: The night of 10/24/2017 into the morning of 10/25/2017 ORDERED BY: Dr. Yuen Study initially performed on room air and ended on 1-1/2 liters nasal cannula oxygen. Mean oxygen saturation for the study 87.4%. Lowest reliably recorded value 76%. In general, baseline oxygen saturation remained about 85% on room air. Patient was taken to 1 liter nasal cannula with some improvement. At 1-1/2 liters, still remained only about 88%. Only minimal variability is identified. IMPRESSION: Abnormal nocturnal oximetry, suspecting primary hypoventilation. At least some degree of underlying obstructive sleep apnea (ALAN) cannot be ruled out. 1-1/2 liters barely adequate. Please correlate clinically.
[2017-10-26] VITALS: BP 117/60
[2017-10-26] MEDS: methylPREDNISolone INJ 40 MG/1 ML VIAL (J2920) IV SCH ×2 (00:02→08:54)
[2017-10-26] MEDS: IPRATROPIUM 0.5MG/ALBUTEROL 2.5MG INH SOL UD 3ML (DUONEB)(J7620) NEB SCH ×4 (01:34→20:00)
[2017-10-26] MEDS: LORazepam 0.5 MG TAB PO PRN (06:26)
[2017-10-26 07:14] LABS: BASO % 0.2 % (0.0-1.0); IMMATURE GRANULOCYTE % 1.4 % (0-0); LYMPH # 1.3 10^3/uL (1.5-4.5); LYMPH % 10.8 % (24.0-44.0); MEAN CORPUSCULAR HEMOGLOBIN 29.6 pg (27.0-33.0); MEAN CORPUSCULAR HGB CONC 33.3 g/dl (32.0-36.5); MONO # 0.8 10^3/uL (0.0-0.8); MONO % 6.6 % (0.0-5.0); NEUTROPHILS # 9.8 10^3/uL (1.8-7.7); PLATELET COUNT, AUTOMATED 240 10^3/uL (150-450); RED CELL DISTRIBUTION WIDTH 12.2 % (11.5-14.5)
[2017-10-26 07:35] LABS: ALBUMIN/GLOBULIN RATIO 0.88 (1.00-1.93); ALKALINE PHOSPHATASE 91 U/L (45-117); ALT/SGPT 50 U/L (12-78); ANION GAP 6 MEQ/L (8-16); AST/SGOT 22 U/L (7-37); BILIRUBIN,TOTAL 0.7 MG/DL (0.2-1.0); BLOOD UREA NITROGEN 11 MG/DL (7-18); CALCIUM LEVEL 8.5 MG/DL (8.5-10.1); CARBON DIOXIDE LEVEL 31 MEQ/L (21-32); CHLORIDE LEVEL 104 MEQ/L (98-107); CREATININE FOR GFR 0.48 MG/DL (0.55-1.02); GLOMERULAR FILTRATION RATE > 60.0 (>51); GLUCOSE, FASTING 118 MG/DL (70-105); MAGNESIUM LEVEL 2.2 MG/DL (1.8-2.4); POTASSIUM SERUM 3.6 MEQ/L (3.5-5.1); SODIUM LEVEL 141 MEQ/L (136-145); TOTAL PROTEIN 6.4 GM/DL (6.4-8.2)
[2017-10-26] MEDS: ADVAIR HFA 230/21MCG INHALER INH SCH ×2 (07:56→21:02)
[2017-10-26] MEDS: TIOTROPIUM INHALER/CAPSULE (SPIRIVA) INH SCH (07:56)
[2017-10-26 08:30] VITALS: BP 143/70
[2017-10-26] MEDS: FLUCONAZOLE 100 MG TAB PO SCH (08:54)
[2017-10-26] MEDS: PARoxetine 20 MG TAB PO SCH (08:55)
[2017-10-26] MEDS: guaiFENesin ER 600 MG TAB PO SCH ×2 (08:55→20:14)
[2017-10-26] MEDS: NICOTINE 21MG/24HR 1 EA TRANSDERMAL TD SCH (08:56)
[2017-10-26 09:00] VITALS: BP 143/70
[2017-10-26 16:00] VITALS: BP 128/70
--- NOTE | 2017-10-26 16:03 | IPNPDOC ---
Text Note Date of Service The patient was seen on 10/26/17. NOTE Subjective: Patient states dyspnea significantly improved. Denies chest pain/ palpitations. No orthopnea. No lower extremity edema. Objective: Vitals: (see below) General: No acute distress, laying comfortably in bed. HEENT: Moist mucous membranes. Neck: No JVD or lymphadenopathy Cardiac: RRR, No murmurs Pulm: Diminished breath sounds at the bases b/l. No wheezing, rhonchi Abd: NT/ND + BS Ext: No edema or cyanosis Labs (see below) Images: Assessment/Plan 1. Community-acquired pneumonia/acute COPD exacerbation- status post Levaquin. Continue nebs. Blood cultures negative. She'll be on culture with strep pneumonia. Change Solu-Medrol to prednisone. Continue Advair, Mucinex, DuoNeb nebs, Spiriva. Encouraged to use incentive spirometer/Acapella, and to ambulate. 2. ? Polycythemia- ? Secondary to ALAN. Will need outpatient follow-up. Will need outpatient sleep study 3. Thrombocytopenia resolved 4. Hypoxia likely secondary to #1. Patient is being weaned off oxygen. Echocardiogram pending. May need home O2, with outpatient follow-up with her PCP for possibly weaning her off in the near future. Ambulatory pulse ox 84-87% in room air 10/26. 5. Anxiety/depression- no suicidal ideations. Continue home meds 6. Hypokalemia replaced DVT prophy: SCDs Plan to discharge in next 24 hours. VS,Fishbone, I+O VS, Fishbone, I+O Laboratory Tests 10/26/17 07:01 Red Blood Count 5.84 H, Mean Corpuscular Volume 89.0, Mean Corpuscular Hemoglobin 29.6, Mean Corpuscular Hemoglobin Concent 33.3, Red Cell Distribution Width 12.2, Neutrophils (%) (Auto) 81.0 H, Lymphocytes (%) (Auto) 10.8 L, Monocytes (%) (Auto) 6.6 H, Eosinophils (%) (Auto) 0.0, Basophils (%) ( Auto) 0.2, Neutrophils # (Auto) 9.8 H, Lymphocytes # (Auto) 1.3 L, Monocytes # ( Auto) 0.8, Eosinophils # (Auto) 0.0, Basophils # (Auto) 0.0, Calcium Level 8.5, Aspartate Amino Transf (AST/SGOT) 22, Alanine Aminotransferase (ALT/SGPT) 50, Alkaline Phosphatase 91, Total Bilirubin 0.7, Total Protein 6.4, Albumin 3.0 L Vital Signs Date Time Temp Pulse Resp B/P (MAP) Pulse Ox O2 Delivery O2 Flow Rate FiO2 10/26/17 12:00 Nasal Cannula 1.0 10/26/17 09:30 92 10/26/17 08:30 98.2 83 17 143/70 (94) I&O- Last 24 Hours up to 6 AM 10/27/17 06:00 Intake Total 240 ml Output Total 100 ml Balance 140 ml PETER BUTTS MD Oct 26, 2017 16:03
[2017-10-26 20:00] VITALS: BP 100/57
[2017-10-27] VITALS: BP 100/50
[2017-10-27] MEDS: IPRATROPIUM 0.5MG/ALBUTEROL 2.5MG INH SOL UD 3ML (DUONEB)(J7620) NEB SCH ×3 (00:08→13:42)
[2017-10-27] MEDS: TIOTROPIUM INHALER/CAPSULE (SPIRIVA) INH SCH (07:51)
[2017-10-27] MEDS: ADVAIR HFA 230/21MCG INHALER INH SCH (07:51)
[2017-10-27 08:00] VITALS: BP 117/53
[2017-10-27] MEDS: NICOTINE 21MG/24HR 1 EA TRANSDERMAL TD SCH (09:00)
[2017-10-27] MEDS ORDERED: predniSONE 10 MG TAB PO SCH (09:00)
[2017-10-27] MEDS: FLUCONAZOLE 100 MG TAB PO SCH (09:07)
[2017-10-27] MEDS: guaiFENesin ER 600 MG TAB PO SCH (09:07)
[2017-10-27] MEDS: PARoxetine 20 MG TAB PO SCH (09:07)
[2017-10-27] MEDS ORDERED: MUCI600T37 PO (11:57)
[2017-10-27] MEDS ORDERED: ADVA230A INH (11:57)
[2017-10-27] MEDS ORDERED: TIOT18INH INH (11:57)
[2017-10-27] MEDS ORDERED: FLUC10TA PO (11:57)
[2017-10-27] MEDS ORDERED: PRED10TA2 PO (12:06)
--- NOTE | 2017-10-27 15:39 | DS.PDOC ---
Discharge Summary General Date of Admission Oct 19, 2017 at 13:04 Date of Discharge 10/27/17 Discharge Summary PROCEDURES PERFORMED DURING STAY: None. ADMITTING/DISCHARGE DIAGNOSES: 1. Community acquired pneumonia 2. COPD exacerbation 3. Anxiety/depression 4. Hypokalemia replaced COMPLICATIONS/CHIEF COMPLAINT: Shortness of breath HISTORY OF PRESENT ILLNESS/HOSPITAL COURSE: This is a 52-year-old female past medical history depression, anxiety, COPD, history of tobacco abuse who presents complaining of dyspnea. Patient was found to have community acquired pneumonia and finished her course of antibiotics while inpatient. Over the course of hospitalization, patient was hypoxemic and had attempted to be weaned off oxygen. She was able to be weaned down to 1 L nasal cannula, however desaturated to 84% on room air while ambulating. Patient is hemodynamically stable and will be discharged home today with outpatient follow-up with her primary care physician. She has been given a prescription for 1 L nasal cannula O2 portable, and will likely be weaned off of that by her primary care physician. She will also need outpatient sleep study to rule out obstructive sleep apnea. She's been counseled on tobacco cessation. DISCHARGE MEDICATIONS: Please see below. ALLERGIES: Please see below. PHYSICAL EXAMINATION ON DISCHARGE: Vitals: (see below) General: No acute distress, laying comfortably in bed. HEENT: Moist mucous membranes. Neck: No JVD or lymphadenopathy Cardiac: RRR, No murmurs Pulm: Diminished breath sounds at the bases b/l. No wheezing, rhonchi Abd: NT/ND + BS Ext: No edema or cyanosis LABORATORY DATA: Please see below. PROGNOSIS: Fair ACTIVITY: As tolerated. DIET: COPD diet DISCHARGE PLAN/DISPOSITION: Home DISCHARGE INSTRUCTIONS: 1. Follow-up with PCP in 1 week. 1 L O2 nasal cannula portable oxygen, to be titrated down by PCP. Will need outpatient sleep study; please follow up with PCP. DISCHARGE CONDITION: Stable. TIME SPENT ON DISCHARGE: Greater than 30 minutes. Vital Signs/I&Os Vital Signs Date Time Temp Pulse Resp B/P (MAP) Pulse Ox O2 Delivery O2 Flow Rate FiO2 10/27/17 11:00 85 Room Air 10/27/17 08:00 98.2 67 20 117/53 (74) 10/26/17 16:00 1.0 I&O- Last 24 Hours up to 6 AM 10/28/17 06:00 Intake Total 360 ml Output Total 350 ml Balance 10 ml Microbiology Microbiology 10/19/17 Blood Culture - Final, Complete NO GROWTH AFTER 5 DAYS 10/19/17 Blood Culture - Final, Complete NO GROWTH AFTER 5 DAYS 10/23/17 Gram Stain - Final, Complete 10/23/17 Sputum Culture - Final, Complete Yeast Like Organism 10/19/17 Gram Stain - Final, Complete 10/19/17 Sputum Culture - Final, Complete Streptococcus Pneumoniae Yeast Like Organism Discharge Medications Scheduled Ergocalciferol (Vitamin D) 50,000 Unit Cap, 50,000 UNIT PO QWEEK, (Reported) SUNDAYS Fluconazole (Diflucan) 100 Mg Tab, 100 MG PO DAILY Guaifenesin (Mucinex) 600 Mg Tab, 1,200 MG PO BID Paroxetine (Paroxetine HCl) 40 Mg Tab, 40 MG PO DAILY, (Reported) Prednisone (Prednisone) 10 Mg Tab, 10 MG PO TAPER Take 3 tabs daily x 3 days, then 2 tabs daily x 3 days, then 1 tabs daily x 3 days, then stop Salmeterol/Fluticasone (Advair Hfa 230-21 Mcg/Act) 1 Aer Aer, 2 PUFF INH BID Tiotropium [place] Monohydrate (Spiriva Handihaler) 5 Inhalation/Inhaler Powd, 1 INHALATION INH DAILY@08 Scheduled PRN (Jodee-Dudley Plus Severe 5-2-10-250 mg) 1 Tab Tab, 1 TAB PO PRN PRN for COLD, (Reported) Acetaminophen (Tylenol) 325 Mg Tab, 1,000 MG PO Q6H PRN for PAIN OR FEVER, ( Reported) Albuterol Sulfate (Proair Hfa) 108 Mcg/Act Aer, 2 PUFFS INH Q4H PRN for SHORTNESS OF BREATH, (Reported) Allergies Coded Allergies: No Known Allergies (Unverified , 09/15/13) PETER BUTTS MD Oct 27, 2017 15:39
[2017-10-27 16:00] VITALS: BP 120/63
--- NOTE | 2017-10-27 21:59 | ECHO ---
DATE OF PROCEDURE: 10/25/2017 REFERRING PHYSICIAN: Christos Yuen MD INDICATION: Dyspnea. HEIGHT: 165 cm WEIGHT: 109 kg 2D MEASUREMENTS: Left atrium: 4.0 cm Aortic root: 3.5 cm Ventricular septum: 0.94 cm Posterior wall: 0.96 cm Left ventricle diastole: 4.6 cm LVOT: 1.8 cm Inferior vena cava: 1.6 cm (more than 50% respiratory variation). DOPPLER MEASUREMENTS: Aortic valve velocity: 197 cm/s LVOT velocity: 124 cm/s LVOT VTI: 23.2 cm Mitral E velocity: 86.4 cm/s Mitral A velocity: 84.9 cm/s Mitral deceleration time: 239 ms Estimated right ventricle systolic pressure 24 mmHg by pulmonary acceleration time method. MITRAL ANNULAR TISSUE DOPPLER: E prime septal: 8.5 cm/s E prime lateral: 13.2 cm/s DESCRIPTION: Rhythm was sinus. This was a moderately technically difficult echocardiogram. No pericardial effusion. This is a 2D, M-mode, color flow Doppler and pulse wave Doppler examination that included mitral annular tissue Doppler. CONCLUSIONS: 1. Normal echocardiogram Doppler. 2. Normal left ventricle internal dimensions and wall thickness. Normal regional left ventricle (LV) motion and wall thickening. Normal LV systolic and diastolic function. Left ventricular ejection fraction (LVEF) of 70% by visual estimate. 3. Normal right ventricle size and systolic function. Normal pulmonary artery systolic pressure.
== END 2017-10-27 16:35 | disposition home or self-care (01) | DRG 139 ==
LOC: M ED 07:10 → M ED INP 13:04 → M PED 10-20 16:50
PROVIDERS: ADMIT Internal Medicine; ATTEND Internal Medicine
DX: J18.9 Pneumonia, unspecified organism (principal); J96.01 Acute respiratory failure with hypoxia; D69.6 Thrombocytopenia, unspecified; J44.1 Chronic obstructive pulmonary disease with (acute) exacerbation; D75.1 Secondary polycythemia; E87.6 Hypokalemia; F41.9 Anxiety disorder, unspecified; F32.9 Major depressive disorder, single episode, unspecified; F17.200 Nicotine dependence, unspecified, uncomplicated; Z79.899 Other long term (current) drug therapy

== ENCOUNTER → 2018-06-10 | Outpatient (REF) | payer OTHER ==
[2018-06-10 13:21] LABS: BASO # 0.1 10^3/uL (0.0-0.2); BASO % 0.7 % (0.0-1.0); EOS # 0.2 10^3/uL (0.0-0.50); EOS % 2.1 % (0.0-3.0); HEMATOCRIT 53.3 % (36.0-47.0); IMMATURE GRANULOCYTE % 0.3 % (0-3.0); LYMPH # 2.7 10^3/uL (1.5-4.5); LYMPH % 30.3 % (24.0-44.0); MEAN CORPUSCULAR HEMOGLOBIN 30.7 pg (27.0-33.0); MEAN CORPUSCULAR HGB CONC 33.8 g/dl (32.0-36.5); MONO # 0.6 10^3/uL (0.0-0.8); MONO % 7.1 % (0.0-5.0); NEUTROPHILS # 5.3 10^3/uL (1.8-7.7); NEUTROPHILS % 59.5 % (36.0-66.0); PLATELET COUNT, AUTOMATED 225 10^3/uL (150-450); RED BLOOD COUNT 5.86 10^6/uL (4.00-5.40); RED CELL DISTRIBUTION WIDTH 13.2 % (11.5-14.5); RETIC HEMOGLOBIN EQUIVALENT 34.8 pg (24-36); RETICULOCYTE # 147.7 10^9/L (17-77); RETICULOCYTE % 2.5 % (0.5-1.5); WHITE BLOOD COUNT 8.9 10^3/uL (4.0-10.0)
[2018-06-10 14:08] LABS: ALBUMIN 3.7 GM/DL (3.2-5.2); ALBUMIN/GLOBULIN RATIO 1.09 (1.00-1.93); ALKALINE PHOSPHATASE 149 U/L (45-117); ALT/SGPT 23 U/L (12-78); ANION GAP 6 MEQ/L (8-16); AST/SGOT 18 U/L (7-37); BILIRUBIN,TOTAL 0.6 MG/DL (0.2-1.0); BLOOD UREA NITROGEN 13 MG/DL (7-18); CALCIUM LEVEL 9.3 MG/DL (8.5-10.1); CARBON DIOXIDE LEVEL 30 MEQ/L (21-32); CHLORIDE LEVEL 105 MEQ/L (98-107); CHOLESTEROL LEVEL 243 MG/DL (<200); CHOLESTEROL RISK RATIO 3.983 (<5); CREATININE FOR GFR 0.58 MG/DL (0.55-1.30); FERRITIN 196 NG/ML (8-252); FREE T4 0.98 NG/DL (0.76-1.46); GLOMERULAR FILTRATION RATE > 60.0 (>51); GLUCOSE, FASTING 81 MG/DL (70-100); HDL CHOLESTEROL 61 MG/DL (>40); IRON (FE) 110 UG/DL (50-170); LDL CHOLESTEROL 157.6 MG/DL (<100); NON-HDL-C 182 MG/DL; PERCENT SATURATION 30.1 % (13.2-45.0); POTASSIUM SERUM 4.2 MEQ/L (3.5-5.1); SODIUM LEVEL 141 MEQ/L (136-145); TOTAL IRON BINDING CAPACITY 365 UG/DL (250-450); TOTAL PROTEIN 7.1 GM/DL (6.4-8.2); TRIGLYCERIDES LEVEL 122 MG/DL (<150)
[2018-06-10 14:10] LABS: TOTAL 25(OH) VITAMIN D 13.5 NG/ML (30.0-100.0)
[2018-06-14 15:32] LABS: HEMOGLOBIN A 97.7 % (96.4-98.8); HEMOGLOBIN A2 2.3 % (1.8-3.2); HGB SOLUBILITY Negative (Negative)
== END ==
LOC: M SFHCPLAZ 11:35
DX: R06.02 Shortness of breath (principal); Z13.220 Encounter for screening for lipoid disorders; R71.8 Other abnormality of red blood cells; F32.9 Major depressive disorder, single episode, unspecified; E55.9 Vitamin D deficiency, unspecified

== ENCOUNTER → 2018-06-17 | Outpatient (CLI) | payer OTHER | LOC: M RAD 13:26 | DX: J44.1 Chronic obstructive pulmonary disease with (acute) exacerbation (principal); R91.8 Other nonspecific abnormal finding of lung field; N28.89 Other specified disorders of kidney and ureter | CPT/HCPCS: 71250 ==

== ENCOUNTER → 2018-07-01 | Outpatient (CLI) | payer OTHER ==
[~2018-07-01] MED LIST changes: -ADV250INH INH; -AVEL1TAB3 PO; +ISOVUE-370 76% 100ML VIAL (Q9967) As Ordered; -LORA1TAB12 PO; -NICO21DI5 TD; -OMEP40CA2 PO; -PARO20TA3 PO; -PRED20TA PO; -PROAAER10 INH; -TYLE325T5 PO; -ZITHTAB PO
== END ==
LOC: M RAD 14:13
DX: N28.89 Other specified disorders of kidney and ureter (principal)
CPT/HCPCS: Q9967

== ENCOUNTER → 2018-07-07 | Outpatient (CLI) | payer OTHER ==
[2018-07-07 15:54] LABS: HEMATOCRIT 53.3 % (36.0-47.0); MEAN CORPUSCULAR HEMOGLOBIN 30.9 pg (27.0-33.0); MEAN CORPUSCULAR HGB CONC 33.8 g/dl (32.0-36.5); MEAN CORPUSCULAR VOLUME 91.6 fl (80.0-96.0); PLATELET COUNT, AUTOMATED 204 10^3/uL (150-450); RED BLOOD COUNT 5.82 10^6/uL (4.00-5.40); RED CELL DISTRIBUTION WIDTH 12.8 % (11.5-14.5)
[2018-07-07 16:08] LABS: INR 0.88
[2018-07-07 16:09] LABS: PARTIAL THROMBOPLASTIN TIME 27.1 SECONDS (25.4-37.6)
[2018-07-07 16:19] LABS: ALBUMIN 3.6 GM/DL (3.2-5.2); ALBUMIN/GLOBULIN RATIO 1.09 (1.00-1.93); ALKALINE PHOSPHATASE 149 U/L (45-117); ALT/SGPT 14 U/L (12-78); ANION GAP 10 MEQ/L (8-16); AST/SGOT 10 U/L (7-37); BILIRUBIN,TOTAL 0.3 MG/DL (0.2-1.0); BLOOD UREA NITROGEN 13 MG/DL (7-18); CALCIUM LEVEL 9.4 MG/DL (8.5-10.1); CARBON DIOXIDE LEVEL 28 MEQ/L (21-32); CHLORIDE LEVEL 105 MEQ/L (98-107); CREATININE FOR GFR 0.69 MG/DL (0.55-1.30); GLOMERULAR FILTRATION RATE > 60.0 (>51); GLUCOSE, FASTING 81 MG/DL (70-100); POTASSIUM SERUM 4.2 MEQ/L (3.5-5.1); SODIUM LEVEL 143 MEQ/L (136-145); TOTAL PROTEIN 6.9 GM/DL (6.4-8.2)
== END ==
LOC: M LAB 14:52
DX: Z01.818 Encounter for other preprocedural examination (principal); N28.89 Other specified disorders of kidney and ureter
CPT/HCPCS: 80053

== ENCOUNTER → 2018-07-07 | Outpatient (CLI) | payer OTHER | LOC: M RAD 14:43 | DX: M51.36 Other intervertebral disc degeneration, lumbar region (principal) | CPT/HCPCS: 72072 ==

== ENCOUNTER → 2018-07-28 | Outpatient (REF) | payer OTHER ==
[2018-07-28 14:29] LABS: BASO # 0.1 10^3/uL (0.0-0.2); BASO % 0.6 % (0.0-1.0); EOS # 0.3 10^3/uL (0.0-0.50); EOS % 2.4 % (0.0-3.0); HEMATOCRIT 51.4 % (36.0-47.0); HEMOGLOBIN 17.2 g/dl (12.0-15.5); IMMATURE GRANULOCYTE % 0.4 % (0-3.0); LYMPH # 2.6 10^3/uL (1.5-4.5); LYMPH % 23.1 % (24.0-44.0); MEAN CORPUSCULAR HGB CONC 33.5 g/dl (32.0-36.5); MEAN CORPUSCULAR VOLUME 92.6 fl (80.0-96.0); NEUTROPHILS # 7.2 10^3/uL (1.8-7.7); NEUTROPHILS % 64.5 % (36.0-66.0); PLATELET COUNT, AUTOMATED 258 10^3/uL (150-450); RED BLOOD COUNT 5.55 10^6/uL (4.00-5.40); RED CELL DISTRIBUTION WIDTH 12.3 % (11.5-14.5); WHITE BLOOD COUNT 11.2 10^3/uL (4.0-10.0)
[2018-07-28 14:42] LABS: ALBUMIN 3.5 GM/DL (3.2-5.2); ALBUMIN/GLOBULIN RATIO 1.06 (1.00-1.93); ALKALINE PHOSPHATASE 171 U/L (45-117); ALT/SGPT 49 U/L (12-78); ANION GAP 6 MEQ/L (8-16); AST/SGOT 65 U/L (7-37); BILIRUBIN,TOTAL 0.3 MG/DL (0.2-1.0); BLOOD UREA NITROGEN 11 MG/DL (7-18); CALCIUM LEVEL 9.8 MG/DL (8.5-10.1); CARBON DIOXIDE LEVEL 30 MEQ/L (21-32); CHLORIDE LEVEL 102 MEQ/L (98-107); CREATININE FOR GFR 0.77 MG/DL (0.55-1.30); GLOMERULAR FILTRATION RATE > 60.0 (>51); GLUCOSE, FASTING 59 MG/DL (70-100); POTASSIUM SERUM 4.4 MEQ/L (3.5-5.1); SODIUM LEVEL 138 MEQ/L (136-145); TOTAL PROTEIN 6.8 GM/DL (6.4-8.2)
== END ==
LOC: M SFHCPLAZ 10:45
DX: Z90.5 Acquired absence of kidney (principal); J44.1 Chronic obstructive pulmonary disease with (acute) exacerbation

== ENCOUNTER → 2018-08-04 | Outpatient (REF) | payer OTHER ==
[2018-08-04 14:21] LABS: HEMATOCRIT 53.8 % (36.0-47.0); HEMOGLOBIN 17.7 g/dl (12.0-15.5); MEAN CORPUSCULAR HEMOGLOBIN 30.9 pg (27.0-33.0); MEAN CORPUSCULAR HGB CONC 32.9 g/dl (32.0-36.5); MEAN CORPUSCULAR VOLUME 93.9 fl (80.0-96.0); PLATELET COUNT, AUTOMATED 292 10^3/uL (150-450); RED BLOOD COUNT 5.73 10^6/uL (4.00-5.40); RED CELL DISTRIBUTION WIDTH 12.5 % (11.5-14.5); WHITE BLOOD COUNT 10.1 10^3/uL (4.0-10.0)
[2018-08-04 14:53] LABS: ANION GAP 10 MEQ/L (8-16); BLOOD UREA NITROGEN 14 MG/DL (7-18); CALCIUM LEVEL 9.8 MG/DL (8.5-10.1); CARBON DIOXIDE LEVEL 28 MEQ/L (21-32); CHLORIDE LEVEL 104 MEQ/L (98-107); CREATININE FOR GFR 0.93 MG/DL (0.55-1.30); GLOMERULAR FILTRATION RATE > 60.0 (>51); GLUCOSE, FASTING 88 MG/DL (70-100); POTASSIUM SERUM 4.5 MEQ/L (3.5-5.1); SODIUM LEVEL 142 MEQ/L (136-145)
== END ==
LOC: M SMT 13:51
DX: C64.2 Malignant neoplasm of left kidney, except renal pelvis (principal); Z90.5 Acquired absence of kidney

== ENCOUNTER → 2018-08-18 | Outpatient (CLI) | payer OTHER | LOC: M RAD 16:49 | DX: J44.1 Chronic obstructive pulmonary disease with (acute) exacerbation (principal) ==

== ENCOUNTER → 2018-08-18 | Outpatient (REF) | payer OTHER ==
[2018-08-18 19:12] LABS: AMORPHOUS SEDIMENT SMALL (NEGATIVE); APPEARANCE, URINE CLOUDY (CLEAR); BACTERIA, URINE AUTO 1+ (NEGATIVE); BILIRUBIN, URINE AUTO NEGATIVE (NEGATIVE); BLOOD, URINE BLOOD 2+ (NEGATIVE); COLOR, URINE YELLOW (YELLOW); GLUCOSE, URINE (UA) AUTO NEGATIVE (NEGATIVE); KETONE, URINE AUTO NEGATIVE (NEGATIVE); LEUKOCYTE ESTERASE, URINE AUTO 3+ (NEGATIVE); MUCUS, URINE SMALL (NEGATIVE); NITRITE, URINE AUTO NEGATIVE (NEGATIVE); PROTEIN, URINE AUTO NEGATIVE (NEGATIVE); RBC, URINE AUTO 19 /HPF (0-3); SPECIFIC GRAVITY URINE AUTO 1.023 (1.002-1.035); SQUAMOUS EPITHELIAL CELL UR AU 5 /HPF (0-6); WBC, URINE AUTO 52 /HPF (0-3)
== END ==
LOC: M SFHCPLAZ 17:56
DX: R10.2 Pelvic and perineal pain (principal)

== ENCOUNTER → 2018-10-11 | Outpatient (REF) | payer OTHER ==
[2018-10-11 12:48] LABS: TOTAL 25(OH) VITAMIN D 49.7 NG/ML (30.0-100.0)
== END ==
LOC: M SFHCPLAZ 09:58
DX: E55.9 Vitamin D deficiency, unspecified (principal)
CPT/HCPCS: 82306

== ENCOUNTER 2019-01-26 15:03 | Inpatient (IN) | payer OTHER ==
[~2019-01-26] VITALS: Ht 162.6 cm; Wt 113.0 kg
[~2019-01-26 15:03] MED LIST changes: +ADV250INH INH; +ADVA230A INH; +ALKATAB PO; +AVEL1TAB3 PO; +CLAR10CA3 PO; +COLA100C5 PO; +EFFE37.5 PO; +FLUC10TA PO; +FLUTISP NARES; -ISOVUE-370 76% 100ML VIAL (Q9967) As Ordered; +LORA0.5T11 PO; +LORA1TAB12 PO; +MUCI600T37 PO; +NICO21DI6 TD; +OMEP40CA2 PO; +OXYC1TAB23 PO; +PARO20TA3 PO; +PARO40TA2 PO; +PRED10TA2 PO; +PRED20TA PO; +PROAAER10 INH; +TIOT18INH INH; +TYLE325T5 PO; +VENL75CA47 PO; +VITA50005 PO; +ZITHTAB PO
[2019-01-26] MEDS ORDERED: ACETAMINOPHEN 325 MG TAB PO ONE (15:45)
--- NOTE | 2019-01-26 15:51 | REP ---
Chest one-view HISTORY: Cough Comparison: 08/18/2018 Linear densities are present in the right lower lobe consistent with atelectasis or scar. Linear density is present in the left lower lobe consistent with scar. The lungs are clear. The heart is normal in size. The pulmonary vasculature is normal in appearance. Impression: Right lower lobe atelectasis or scar. Electronically Signed by Jason Milton MD 01/26/2019 03:43 P
[2019-01-26 16:29] LABS: VENOUS BASE EXCESS 3.7 (-2.0-2.0); VENOUS HCO3 29.4 MEQ/L (23.0-27.0); VENOUS O2 SATURATION 99.3 % (60.0-80.0); VENOUS PARTIAL PRESSURE CO2 47.3 mmHg (38.0-50.0); VENOUS PARTIAL PRESSURE O2 255.7 mmHg (30.0-50.0); VENOUS PH 7.411 UNITS (7.330-7.430); VENOUS STANDARD HCO3 27.8 MEQ/L; VENOUS TOTAL CO2 30.8 MEQ/L (24.0-28.0)
[2019-01-26 16:35] LABS: BASO % 0.4 % (0.0-1.0); EOS % 0.1 % (0.0-3.0); HEMOGLOBIN 16.9 g/dl (12.0-15.5); LYMPH # 0.5 10^3/uL (1.5-4.5); MEAN CORPUSCULAR HEMOGLOBIN 31.6 pg (27.0-33.0); MEAN CORPUSCULAR HGB CONC 33.1 g/dl (32.0-36.5); MEAN CORPUSCULAR VOLUME 95.5 fl (80.0-96.0); MONO # 0.9 10^3/uL (0.0-0.8); MONO % 11.7 % (0.0-5.0); NEUTROPHILS # 6.2 10^3/uL (1.8-7.7); NEUTROPHILS % 80.2 % (36.0-66.0); PLATELET COUNT, AUTOMATED 145 10^3/uL (150-450); RED BLOOD COUNT 5.34 10^6/uL (4.00-5.40); WHITE BLOOD COUNT 7.7 10^3/uL (4.0-10.0)
[2019-01-26 16:53] LABS: INR 0.98; PROTHROMBIN TIME 13.1 SECONDS (12.1-14.4)
[2019-01-26 17:00] LABS: ALBUMIN 3.5 GM/DL (3.2-5.2); ALT/SGPT 21 U/L (12-78); BILIRUBIN,DIRECT < 0.1 MG/DL (0.0-0.2); BILIRUBIN,TOTAL 0.2 MG/DL (0.2-1.0); BLOOD UREA NITROGEN 8 MG/DL (7-18); CALCIUM LEVEL 8.5 MG/DL (8.5-10.1); CARBON DIOXIDE LEVEL 28 MEQ/L (21-32); CHLORIDE LEVEL 102 MEQ/L (98-107); CK-MB VALUE MASS < 1.0 NG/ML (<3.6); CPK CREATINE PHOSPHOKINASE 69 U/L (26-192); CREATININE FOR GFR 0.73 MG/DL (0.55-1.30); GLOMERULAR FILTRATION RATE > 60.0 (>51); GLUCOSE, FASTING 88 MG/DL (70-100); MB/CK RELATIVE INDEX 1.45 (< OR =4); NT-PRO BNP 202 PG/ML (<125); SODIUM LEVEL 139 MEQ/L (136-145); THYROID STIMULATING HORMONE 0.491 uIU/ML (0.358-3.740); TOTAL PROTEIN 6.6 GM/DL (6.4-8.2); TROPONIN I < 0.02 NG/ML (< 0.10)
[2019-01-26 17:48] LABS: INFLUENZA A AMPLIFICATION POSITIVE (NEGATIVE); INFLUENZA B AMPLIFICATION NEGATIVE (NEGATIVE)
[2019-01-26] MEDS ORDERED: methylPREDNISolone INJ 125 MG/2 ML VIAL (J2930) IV ONE (18:00)
[2019-01-26] MEDS ORDERED: OSELTAMIVIR PHOSPHATE 75 MG CAP (TAMIFLU) PO ONE (18:00)
[2019-01-26] MEDS: ALBUTEROL SULFATE 2.5 MG/0.5 ML INH NEB SOLN INH SCH ×3 (18:03→18:17)
[2019-01-26] MEDS ORDERED: ACET-683 PO (18:35)
--- NOTE | 2019-01-26 19:27 | ECGEPIP ---
Stationary ECG Study [facility] - ED Test Date: 2019-01-26 Pat Name: GABO CHIN Department: Room: - Gender: F Operation Specialist: dajuan : 1965 Requested By: Gloria Silveira Order Number: [id number] Reading MD: Manpreet Narayanan Measurements Intervals [place] Rate: 103 P: 66 CT: 146 QRS: -86 QRSD: 86 T: 52 QT: 304 QTc: 399 Interpretive Statements SINUS TACHYCARDIA LEFT ANTERIOR FASCICULAR BLOCK POSSIBLE ANTERIOR MYOCARDIAL INFARCTION, OF INDETERMINATE AGE SIMILAR TO 10/19/17 Electronically Signed On 01-26-2019 19:26:49 EDT by Manpreet Narayanan
[2019-01-26] MEDS ORDERED: LORazepam 0.5 MG TAB PO PRN (19:30)
[2019-01-26] MEDS ORDERED: FLUTICASONE PROP 0.05% NASAL SPRAY 16 GM (FLONASE) NARES PRN (19:30)
[2019-01-26] MEDS: IPRATROPIUM 0.5MG/ALBUTEROL 2.5MG INH SOL UD 3ML (DUONEB)(J7620) NEB SCH (20:00)
[2019-01-26] MEDS: DOCUSATE SODIUM 100 MG CAP PO SCH (21:00)
--- NOTE | 2019-01-26 21:18 | HPE ---
DATE OF ADMISSION: 01/26/2019 53-year-old female with a past medical history of non oxygen dependent chronic obstructive pulmonary disease (COPD), hyperlipidemia, irritable bowel syndrome, who presents to the emergency room from urgent care with a chief complaint of shortness of breath since Wednesday. The patient said that the shortness of breath progressed where her nebulizer treatments were not helping her so she went to urgent care today for evaluation. Her flu swab there was negative; however, she was hypoxic at 82% on room air and so she was brought to the emergency room for evaluation. In the emergency room, she had a flu swab again, which was positive for influenza A. Chest x-ray from our end was negative. The patient was given 125 mg of Solu-Medrol and DuoNeb treatments, was placed on 2 liters of nasal cannula and she now feels better, saturating 92% on nasal cannula. She will be admitted for further management. PAST MEDICAL HISTORY: Again, past medical history of: 1. Irritable bowel syndrome. 2. Hyperlipidemia. 3. Non oxygen dependent COPD. 4. Anxiety and depression. PAST SURGICAL HISTORY: 1. Renal cell carcinoma, status post left nephrectomy in July 2018. 2. History of cholecystectomy. ALLERGIES: She has no known drug allergies. FAMILY HISTORY: Noncontributory. SOCIAL HISTORY: The patient smokes a half of a pack of cigarettes a day for many years. Denies alcohol or illicit drugs. MEDICATIONS: She takes at home: - Tylenol as needed - albuterol as needed - Colace 100 mg by mouth at bedtime - Cholecalciferol 50,000 units by mouth weekly - fluticasone two sprays in each nostril as needed - lorazepam 0.5 mg by mouth daily as needed - venlafaxine 75 mg by mouth at bedtime REVIEW OF SYSTEMS: Negative for all ten major systems except what is mentioned in the history of present illness. PHYSICAL EXAMINATION: VITAL SIGNS: Blood pressure 107/55, heart rate is 97 and regular, respiratory rate is 24, temperature initially was 101.1 and then was 103.4 and was given Tylenol and it is now 99.6, oxygen saturation is 92% on 2 liters nasal cannula. Head is atraumatic, normocephalic. Neck is supple with no jugular venous distention (JVD). Lungs with late expiratory wheezes bilaterally. S1, S2 audible. No murmurs appreciated. Abdomen is soft. Positive bowel sounds. No pedal edema. Skin is intact. Neurologic examination, the patient is awake, alert and oriented times three. LABORATORIES: WBC 7.7, hemoglobin 16.9, hematocrit 51, platelets 145,000. Sodium 139, potassium 4.0, chloride 102, CO2 is 28, BUN 8, creatinine 0.73, lactic acid 0.5, glucose 88, troponin less than 0.02, TSH is 0.491. VBG pH was 7.411. IMPRESSION: 1. Chronic obstructive pulmonary disease (COPD) exacerbation. 2. Influenza A positive. PLAN: The patient is to be admitted to the medical/surgical floor. We will continue the patient on IV Solu-Medrol 40 mg every 8 hours and DuoNeb every 4 hours as needed. I will start her on some Tamiflu 75 mg by mouth twice a day. We will continue all preadmission medications and attempt to wean her off her oxygen tomorrow.
[2019-01-26 22:30] VITALS: BP 118/71
[2019-01-26] MEDS: VENLAFAXINE **XR** 75MG CAPSULE PO SCH (23:17)
[2019-01-27] MEDS: methylPREDNISolone INJ 40 MG/1 ML VIAL (J2920) IV SCH ×3 (03:14→18:55)
[2019-01-27] MEDS: IPRATROPIUM 0.5MG/ALBUTEROL 2.5MG INH SOL UD 3ML (DUONEB)(J7620) NEB SCH ×7 (04:00→23:11)
[2019-01-27] MEDS: ACETAMINOPHEN 500 MG TAB PO PRN ×2 (05:22→20:56)
[2019-01-27 06:00] VITALS: BP 145/80
[2019-01-27 06:56] LABS: BASO % 0.3 % (0.0-1.0); HEMATOCRIT 55.4 % (36.0-47.0); LYMPH # 0.5 10^3/uL (1.5-4.5); LYMPH % 8.9 % (24.0-44.0); MEAN CORPUSCULAR HEMOGLOBIN 30.5 pg (27.0-33.0); MEAN CORPUSCULAR HGB CONC 32.5 g/dl (32.0-36.5); MEAN CORPUSCULAR VOLUME 93.9 fl (80.0-96.0); MONO # 0.1 10^3/uL (0.0-0.8); NEUTROPHILS # 5.4 10^3/uL (1.8-7.7); NEUTROPHILS % 88.5 % (36.0-66.0); PLATELET COUNT, AUTOMATED 162 10^3/uL (150-450); WHITE BLOOD COUNT 6.1 10^3/uL (4.0-10.0)
[2019-01-27 07:18] LABS: BLOOD UREA NITROGEN 11 MG/DL (7-18); CALCIUM LEVEL 8.8 MG/DL (8.5-10.1); CARBON DIOXIDE LEVEL 28 MEQ/L (21-32); CHLORIDE LEVEL 103 MEQ/L (98-107); CREATININE FOR GFR 0.78 MG/DL (0.55-1.30); GLOMERULAR FILTRATION RATE > 60.0 (>51); GLUCOSE, FASTING 158 MG/DL (70-100); POTASSIUM SERUM 4.3 MEQ/L (3.5-5.1); SODIUM LEVEL 138 MEQ/L (136-145)
[2019-01-27] MEDS: OSELTAMIVIR PHOSPHATE 75 MG CAP (TAMIFLU) PO SCH ×2 (09:21→20:50)
[2019-01-27 14:00] VITALS: BP 83/50
[2019-01-27] MEDS ORDERED: NICOTINE 14 MG/24 HR TRANSDERMAL TD PRN (19:15)
--- NOTE | 2019-01-27 19:35 | IPN ---
DATE: 01/27/2019 SUBJECTIVE: The patient is seen and examined in the room today. The patient has continued to have shortness of breath and requires oxygen support. Denies recurrence of the fever. Still has generalized muscle aches. OBJECTIVE: VITAL SIGNS: Temperature 97.7, platelets 97, respirations 20, blood pressure 145/80, pulse oximetry is 91% with 2 liters nasal cannula. GENERAL: Morbidly obese, anxious, alert and awake. HEENT: Normocephalic, atraumatic. Extraocular movements are grossly intact. CARDIOVASCULAR: Positive S1, S2. Regular rate. LUNGS: Decreased breath sounds. No crackles noted. Expiratory wheezes appreciated. ABDOMEN: Soft, bowel sounds present. EXTREMITIES: No edema. LABORATORY DATA: WBC 6.1, hemoglobin 18, hematocrit 55.4, platelet count is 162. Sodium 138, potassium 4.3, chloride 103, carbon dioxide 28, BUN 11, creatinine 0.73, GFR greater than 60, fasting glucose 158. ASSESSMENT AND PLAN: 1. Influenza infection, started on Tamiflu. Continue supportive care. 2. Chronic obstructive pulmonary disease (COPD) exacerbation. IV steroids. Continue breathing treatments. At baseline, the patient does not require oxygen. 3. Tobacco usage. The patient will have a nicotine patch as needed. 4. Anxiety/depression. Continue home medication, which is Effexor. 5. History of irritable bowel syndrome. Continue to monitor. 6. Deep vein thrombosis (DVT) prophylaxis. Thromboembolic compression stockings (TEDS).
[2019-01-27] MEDS: DOCUSATE SODIUM 100 MG CAP PO SCH (20:50)
[2019-01-27] MEDS: VENLAFAXINE **XR** 75MG CAPSULE PO SCH (20:50)
[2019-01-27 22:00] VITALS: BP 102/53
[2019-01-28] MEDS: methylPREDNISolone INJ 40 MG/1 ML VIAL (J2920) IV SCH ×2 (02:51→09:33)
[2019-01-28] MEDS: IPRATROPIUM 0.5MG/ALBUTEROL 2.5MG INH SOL UD 3ML (DUONEB)(J7620) NEB SCH ×2 (04:00→07:12)
[2019-01-28 06:00] VITALS: BP 117/58
[2019-01-28 07:09] LABS: HEMOGLOBIN 17.6 g/dl (12.0-15.5); MEAN CORPUSCULAR HEMOGLOBIN 30.7 pg (27.0-33.0); PLATELET COUNT, AUTOMATED 149 10^3/uL (150-450); RED BLOOD COUNT 5.73 10^6/uL (4.00-5.40); WHITE BLOOD COUNT 10.3 10^3/uL (4.0-10.0)
[2019-01-28 07:42] LABS: BLOOD UREA NITROGEN 14 MG/DL (7-18); CALCIUM LEVEL 8.8 MG/DL (8.5-10.1); CARBON DIOXIDE LEVEL 32 MEQ/L (21-32); CHLORIDE LEVEL 104 MEQ/L (98-107); CREATININE FOR GFR 0.68 MG/DL (0.55-1.30); GLOMERULAR FILTRATION RATE > 60.0 (>51); GLUCOSE, FASTING 117 MG/DL (70-100); MAGNESIUM LEVEL 2.3 MG/DL (1.8-2.4); POTASSIUM SERUM 4.3 MEQ/L (3.5-5.1); SODIUM LEVEL 141 MEQ/L (136-145)
[2019-01-28] MEDS: OSELTAMIVIR PHOSPHATE 75 MG CAP (TAMIFLU) PO SCH (09:33)
[2019-01-28] MEDS ORDERED: OSEL75CA PO (11:02)
[2019-01-28] MEDS ORDERED: PRED10TA2 PO (11:08)
--- NOTE | 2019-01-30 01:54 | DSES ---
DATE OF ADMISSION: 01/26/2019 DATE OF SIGN OUT AGAINST MEDICAL ADVICE: 01/28/2019 The patient signed out prior to being seen and evaluated on January 28, 2019. PRIMARY CARE PROVIDER: Maycol Segovia CONSULTANTS: None. DISCHARGE DIAGNOSES: 1. Influenza. 2. Chronic obstructive pulmonary disease (COPD) exacerbation. 3. Tobacco abuse. 4. Anxiety/depression. 5. A history of irritable bowel syndrome. HOSPITALIZATION COURSE: The patient is a 53-year-old female who presented to [facility] on 01/26/2019 with a complaint of increased shortness of breath. The patient was noted to have a positive influenza infection and the patient was admitted under hospitalist service. The patient was noted to have chronic obstructive pulmonary disease (COPD) exacerbation. The patient was started on Tamiflu, intravenous (IV) steroids. The patient was being seen and continued to require oxygen support. Later, during the machine fixer on January 28, 2019 the patient decided to sign out against medical advice before the morning encounter. VITAL SIGNS: Her most recent vitals prior to discharge showed temperature 97.3, pulse 81, respirations 20, blood pressure is 117/58, pulse oximetry 95% with 2 liters oxygen. LABORATORIES: Her most recent laboratory data showed white blood cell (WBC) 10.3, hemoglobin 17.6, hematocrit of 55, platelet count is 149. Sodium is 141, potassium 4.3, chloride 104, carbon dioxide 32, BUN 14, creatinine is 0.68, glomerular filtration rate (GFR) is greater than 60. Fasting glucose is 117. Calcium is 8.8. Magnesium 2.3. MICROBIOLOGY: Respiratory panel is positive for influenza on January 26, 2019. Blood culture from January 26, 2019 showed no growth after 72 hours. Blood cultures from January 27, 2019 showed no growth after 48 hours. IMAGING STUDIES: A portable chest x-ray demonstrated right lower lobe atelectasis or scar. Prior to the against medical advice Tamiflu and tapered steroids were offered to the patient for her active influenza infection and chronic obstructive pulmonary disease (COPD) exacerbation. DISCHARGE CONDITION: Guarded. DISCHARGE TIME: Less than 30 minutes.
== END 2019-01-28 12:00 | disposition left against medical advice (07) | DRG 113 ==
LOC: M ED 15:03 → M ED INP 19:17 → M MS5PR 22:16 → OBSVTOIN 01-27 08:17
PROVIDERS: ADMIT Internal Medicine; ATTEND Internal Medicine
DX: J11.1 Influenza due to unidentified influenza virus with other respiratory manifestations (principal); J44.1 Chronic obstructive pulmonary disease with (acute) exacerbation; F41.9 Anxiety disorder, unspecified; F32.9 Major depressive disorder, single episode, unspecified; F17.210 Nicotine dependence, cigarettes, uncomplicated; E78.5 Hyperlipidemia, unspecified; K58.9 Irritable bowel syndrome, unspecified; Z85.51 Personal history of malignant neoplasm of bladder; Z79.899 Other long term (current) drug therapy

== ENCOUNTER → 2019-03-17 | Outpatient (CLI) | payer OTHER ==
[~2019-03-17] MED LIST changes: +ACET-683 PO; +ISOVUE-370 76% 100ML VIAL (Q9967) As Ordered ONE; +OSEL75CA PO
--- NOTE | 2019-03-17 15:42 | REP ---
HISTORY: History of renal cell carcinoma. Followup. COMPARISON: 07/01/2018 CONTRAST: 100 mL [id number] There is no change in the lung bases. The precontrast enhanced portion of the examination shows hepatic and splenic densities to be within normal limits. There are no right-sided nephroliths. Contrast enhanced portion of the examination shows no evidence of an enhancing hepatic abnormality. The spleen, pancreas, adrenal glands, and right kidney are unchanged. Postoperative changes are seen in the left nephric postoperative bed. There is no periaortic adenopathy. The bowel loops and their mesenteries are within normal limits. There is no evidence of an intraabdominal or retroperitoneal mass or adenopathy. There are a few scattered descending colon diverticula, status quo. CT PELVIS: Calcified uterine myomatous changes are suspected. Arising from the uterus on the left, there is a mass which measures 5.2 cm having internal calcifications. There is no pelvic sidewall adenopathy. There is no free fluid or free air. The pelvic bowel loops are within normal limits. Bone window technique throughout the entire exam shows chronic spinal and sacroiliac joint degenerative changes, status quo. IMPRESSION: 1. Status post left nephrectomy. 2. No evidence of acute intraabdominal or intrapelvic disease. 3. Suspect calcified uterine myomatous changes. Ultrasonography should be considered. 4. Other findings as described above. Electronically Signed by Mook Shaw DO 03/17/2019 04:39 P
== END ==
LOC: M RAD 10:22
PROVIDERS: ATTEND Urology
DX: Z90.5 Acquired absence of kidney (principal); Z85.528 Personal history of other malignant neoplasm of kidney
CPT/HCPCS: 74170; Q9967

== ENCOUNTER → 2019-04-13 | Outpatient (CLI) | payer OTHER ==
[~2019-04-13] VITALS: Ht 162.6 cm; Wt 116.8 kg
[~2019-04-13] MED LIST changes: +BEVE1AER INH; +DICL1GEL3 TOP; -ISOVUE-370 76% 100ML VIAL (Q9967) As Ordered ONE
[2019-04-13 15:35] VITALS: BP 121/70
[2019-04-13 16:20] VITALS: BP 118/73
== END ==
LOC: M INFU 16:00
PROVIDERS: ATTEND Internal Medicine Medical Oncology
DX: D75.1 Secondary polycythemia (principal)

== ENCOUNTER → 2019-04-14 | Outpatient (CLI) | payer OTHER ==
--- NOTE | 2019-04-17 09:57 | ECHO ---
DATE OF STUDY: 04/14/2019 REFERRING PHYSICIAN: Anayeli Bourgeois MD INDICATION: Dyspnea. HEIGHT: 65 inches. WEIGHT: 250 pounds. 2D MEASUREMENTS: Aortic anulus: 1.9 cm Left atrium: 2.9 cm Aortic root: 2.5 cm Ventricular septum: 1.02 cm Posterior wall: 1.04 cm Left ventricle diastole: 4.0 cm Inferior vena cava: 1.2 cm DOPPLER MEASUREMENTS: Aortic valve velocity: 116 cm/s LVOT velocity: 97.5 cm/s LVOT VTI: 18.7 cm Mitral E velocity: 68.4 cm/s Mitral A velocity: 81.0 cm/s Mitral deceleration time: 335 ms Pulmonary artery systolic pressure: 44 mmHg MITRAL ANNULAR TISSUE DOPPLER: E prime septal: 7,5 cm/s E prime lateral: 7.8 cm/s DESCRIPTION: Rhythm was sinus. This was a 2D, M-mode, color flow Doppler, and pulse wave Doppler examination and included mitral annular tissue Doppler. Image quality was adequate. No pericardial effusion. CONCLUSIONS: 1. Suggestive of moderate elevation of pulmonary artery systolic pressure (44 mmHg). Normal right ventricle size and systolic function. Normal right atrial size. 2. Normal left ventricle internal dimensions and wall thickness. Normal regional left ventricle (LV) wall motion and wall thickening. Normal LV systolic function. Left ventricular ejection fraction (LVEF) 65% by visual estimate. Grade 1 LV diastolic dysfunction (impaired relaxation filling pattern). 3. Otherwise normal-appearing echocardiogram Doppler findings. MTDD
== END ==
LOC: M CARPUL 09:12
PROVIDERS: ATTEND Internal Medicine Pulmonary Disease
DX: R06.00 Dyspnea, unspecified (principal)

== ENCOUNTER → 2019-04-28 | Outpatient (CLI) | payer OTHER ==
--- NOTE | 2019-04-28 14:43 | REPMRS ---
Patient History The patient states she has not had a clinical breast exam in over a year. Patient is postmenopausal and has history of renal cancer at age 53. No known family history of cancer. Digital Mammo Screening Bilat: April 28, 2019 - Exam #: [id number] Bilateral CC and MLO view(s) were taken. Technologist: Alina Grover, Technologist Prior study comparison: March 23, 2011, bilateral digital mammo screening bilat, performed at [facility]. May 10, 2006, digital mammo diagnostic bilateral, performed at [facility]. FINDINGS: The breast tissue is almost entirely fat. There has been no change in the appearance of the mammogram from the prior studies. There is no interval development of dominant mass, architectural distortion, or clustered microcalcification typical of malignancy. 3-D tomosynthesis shows no additional findings. Assessment: BI-RADS/ACR category 1 mammogram. Negative Mammogram. Recommendation Routine screening mammogram of both breasts in 1 year (for women over age 40). This patient's Lifetime Breast Cancer RIsk is estimated at 7.6 %. This mammogram was interpreted with the aid of an FDA-approved computer-aided dectection system. Electronically Signed By: Waqas De Guzman MD 04/28/19 [id number]
== END ==
LOC: M RAD 13:08
PROVIDERS: ATTEND Nurse Practitioner Family
DX: Z12.31 Encounter for screening mammogram for malignant neoplasm of breast (principal); Z78.0 Asymptomatic menopausal state; Z85.528 Personal history of other malignant neoplasm of kidney

== ENCOUNTER → 2019-04-28 | Outpatient (CLI) | payer OTHER ==
--- NOTE | 2019-04-28 14:22 | REP ---
CT CHEST WITHOUT IV CONTRAST: CT chest performed without IV contrast and compared to prior studies of 06/17/2019 and 03/10/2014. Sagittal and coronal reconstruction images are performed. Multiple scattered subcentimeter nodular opacities are again seen bilaterally, right more so than left. These have remained stable and are therefore benign. No new nodules are seen bilaterally. There are also scattered interstitial fibrotic changes, primarily in the lower lobes, which are stable. No mediastinal or axillary adenopathy is seen. The heart is normal in size. There is no pleural or pericardial effusion. Patient has had a prior cholecystectomy. Patient has had a prior left nephrectomy with mild postsurgical change again seen in the superior aspect of the visualized left renal fossa. IMPRESSION: Stable subcentimeter nodular opacities bilaterally compared back to prior CT of chest, 03/10/2014, with no new suspicious nodular opacity present in either lung. No evidence of new adenopathy. Electronically Signed by Maycol Rader MD 04/28/2019 07:32 P
== END ==
LOC: M RAD 13:06
PROVIDERS: ATTEND Nurse Practitioner Family
DX: C64.9 Malignant neoplasm of unspecified kidney, except renal pelvis (principal); R91.8 Other nonspecific abnormal finding of lung field

== ENCOUNTER 2019-05-05 11:51 | Outpatient (CLI) | payer OTHER ==
[2019-05-05 12:00] VITALS: BP 102/59
== END 2019-05-05 12:30 | disposition home or self-care (01) ==
LOC: M INFU 11:51
PROVIDERS: ATTEND Nurse Practitioner Family
DX: D75.0 Familial erythrocytosis (principal)

== ENCOUNTER → 2019-05-05 | Outpatient (REF) | payer OTHER ==
[2019-05-05 12:13] LABS: ALBUMIN 3.4 GM/DL (3.2-5.2); ALT/SGPT 14 U/L (12-78); BILIRUBIN,TOTAL 0.3 MG/DL (0.2-1.0); BLOOD UREA NITROGEN 12 MG/DL (7-18); CALCIUM LEVEL 9.4 MG/DL (8.5-10.1); CARBON DIOXIDE LEVEL 29 MEQ/L (21-32); CHLORIDE LEVEL 105 MEQ/L (98-107); CHOLESTEROL LEVEL 218 MG/DL (<200); CHOLESTEROL RISK RATIO 3.963 (<5); CREATININE FOR GFR 0.89 MG/DL (0.55-1.30); GLOMERULAR FILTRATION RATE > 60.0 (>51); GLUCOSE, FASTING 87 MG/DL (70-100); HDL CHOLESTEROL 55 MG/DL (>40); LDL CHOLESTEROL 134 MG/DL (<100); NON-HDL-C 163 MG/DL; POTASSIUM SERUM 4.4 MEQ/L (3.5-5.1); SODIUM LEVEL 140 MEQ/L (136-145); THYROID STIMULATING HORMONE 0.869 uIU/ML (0.358-3.740); TOTAL PROTEIN 6.9 GM/DL (6.4-8.2); TRIGLYCERIDES LEVEL 144 MG/DL (<150)
== END ==
LOC: M SFHCPLAZ 11:12
PROVIDERS: ATTEND Nurse Practitioner Family
DX: E78.5 Hyperlipidemia, unspecified (principal); E55.9 Vitamin D deficiency, unspecified

== ENCOUNTER → 2019-05-17 | Outpatient (CLI) | payer OTHER ==
--- NOTE | 2019-05-17 12:12 | REP ---
PELVIC ULTRASOUND: Real-time sonographic evaluation of the pelvis is performed utilizing transabdominal and endovaginal technique. The study is limited due to patient body habitus and bowel gas. Urinary bladder measures 5.0 x 3.0 x 5.2 cm. The uterus measures 8.9 x 4.7 x 5.0 cm. Focal fibroid is seen in the fundus 2.1 x 1.4 x 1.7 cm. The uterus is retroflexed. The endometrium is thickened at 19 mm. There is trace fluid in the cervical canal. The ovaries could not be visualized. No gross adnexal mass or free fluid is seen. IMPRESSION: Fundal fibroid 2.1 cm in maximum diameter. Endometrial thickening 19 mm in AP dimension. I cannot exclude endometrial hyperplasia or neoplasm. Consider endometrial sampling. Electronically Signed by Maycol Rader MD 05/17/2019 04:32 P
== END ==
LOC: M RAD 10:51
PROVIDERS: ATTEND Obstetrics & Gynecology
DX: D25.9 Leiomyoma of uterus, unspecified (principal)

== ENCOUNTER 2019-06-05 11:45 | Outpatient (CLI) | payer OTHER ==
[~2019-06-05] VITALS: Ht 165.1 cm; Wt 113.0 kg
[2019-06-05 11:56] VITALS: BP 131/86
[2019-06-05 12:30] VITALS: BP 107/65
== END 2019-06-05 12:30 | disposition home or self-care (01) ==
LOC: M INFU 11:45
PROVIDERS: ATTEND Nurse Practitioner Family
DX: D75.1 Secondary polycythemia (principal); D72.829 Elevated white blood cell count, unspecified; Z91.048 Other nonmedicinal substance allergy status

== ENCOUNTER 2019-07-03 10:52 | Outpatient (CLI) | payer OTHER ==
[~2019-07-03] VITALS: Ht 165.1 cm; Wt 115.9 kg
[~2019-07-03 10:52] MED LIST changes: +CYCL10TA PO; +VALA1TAB2 PO
[2019-07-03 11:00] VITALS: BP 106/68
[2019-07-03 11:45] VITALS: BP 114/65
== END 2019-07-03 11:45 | disposition home or self-care (01) ==
LOC: M INFU 10:52
PROVIDERS: ATTEND Nurse Practitioner Family
DX: D75.1 Secondary polycythemia (principal); Z91.048 Other nonmedicinal substance allergy status

== ENCOUNTER 2019-08-01 10:41 | Outpatient (CLI) | payer OTHER ==
[~2019-08-01] VITALS: Ht 165.1 cm; Wt 115.9 kg
[2019-08-01 10:50] VITALS: BP 154/78
[2019-08-01 11:30] VITALS: BP 146/80
== END 2019-08-01 11:30 | disposition home or self-care (01) ==
LOC: M INFU 10:41
PROVIDERS: ATTEND Nurse Practitioner Family
DX: D75.1 Secondary polycythemia (principal)

== ENCOUNTER 2019-08-30 10:36 | Outpatient (CLI) | payer OTHER ==
[~2019-08-30] VITALS: Ht 165.1 cm; Wt 118.6 kg
[~2019-08-30 10:36] MED LIST changes: -OMEP40CA2 PO; +OMEP40CA97 PO; +QVAR80AE8 IN
[2019-08-30 10:40] VITALS: BP 137/80
[2019-08-30 11:15] VITALS: BP 111/77
== END 2019-08-30 11:15 | disposition home or self-care (01) ==
LOC: M INFU 10:36
PROVIDERS: ATTEND Nurse Practitioner Family
DX: D75.1 Secondary polycythemia (principal)

== ENCOUNTER → 2019-10-30 | Outpatient (CLI) | payer OTHER ==
[~2019-10-30] MED LIST changes: +ISOVUE-370 76% 100ML VIAL (Q9967) As Ordered ONE; -VALA1TAB2 PO; +VALA1TAB64 PO
--- NOTE | 2019-10-30 12:14 | REP ---
CT ABDOMEN WITH IV CONTRAST: TECHNIQUE: Axial contrast enhanced images from the lung bases to the pubic symphysis using 100 mL Isovue 370 intravenous contrast material with multiplanar reformations. Subcentimeter nodule in the right lower lobe is stable compared back to a prior CT of the chest, 06/17/2018. No new nodules are seen in the visualized lung bases. The liver appears unremarkable. The patient has had a prior cholecystectomy. I do not see significant biliary dilatation. Tiny calcified granulomas are seen in the spleen. Mild thickening of the left adrenal gland is stable. Pancreas demonstrates no mass. The patient is status post left nephrectomy. No mass is seen in the left renal fossa. The right kidney appears normal. There is no right hydronephrosis. There is atherosclerotic calcification of the abdominal aorta without aneurysm. No adenopathy, free air, or free fluid is seen. IMPRESSION: No new mass or adenopathy status post left nephrectomy. Electronically Signed by Maycol Rader MD 10/31/2019 04:07 P
== END ==
LOC: M RAD 10:02
PROVIDERS: ATTEND Urology
DX: C64.2 Malignant neoplasm of left kidney, except renal pelvis (principal); Z90.5 Acquired absence of kidney
CPT/HCPCS: 74160; Q9967

== ENCOUNTER 2019-12-14 12:05 | Outpatient (CLI) | payer OTHER ==
[~2019-12-14] VITALS: Ht 152.4 cm; Wt 118.6 kg
[~2019-12-14 12:05] MED LIST changes: -ISOVUE-370 76% 100ML VIAL (Q9967) As Ordered ONE; -LORA0.5T11 PO; +LORA0.5T5 PO; -LORA1TAB12 PO; +LORA1TAB4 PO
[2019-12-14 12:15] VITALS: BP 135/79
[2019-12-14 12:45] VITALS: BP 141/71
== END 2019-12-14 12:45 | disposition home or self-care (01) ==
LOC: M INFU 12:05
PROVIDERS: ATTEND Nurse Practitioner Family
DX: D75.1 Secondary polycythemia (principal)

== ENCOUNTER → 2020-05-10 | Outpatient (CLI) | payer OTHER ==
[~2020-05-10] MED LIST changes: +CYCL-707 PO; -CYCL10TA PO; +ISOVUE-370 76% 100ML VIAL As Ordered ONE; +TRAM50TA2 PO; +VALA1TAB5 PO; -VALA1TAB64 PO
--- NOTE | 2020-05-10 13:20 | REP ---
CHEST X-RAY: TWO VIEWS. HISTORY: Renal cell carcinoma. Status post nephrectomy. Comparison chest x-ray: January 26, 2019 FINDINGS: There is a small zone of linear fibrosis in the left base, unchanged from comparison study. Lungs are otherwise clear and well inflated. Pleural angles are sharp. The heart is not enlarged. Aorta is somewhat tortuous. No significant bony abnormality is appreciated. IMPRESSION: No active disease. Electronically Signed by Rashid De Guzman MD 05/10/2020 01:49 P
--- NOTE | 2020-05-10 13:29 | REP ---
REASON FOR EXAM: History of renal cell carcinoma, status post nephrectomy. All priors are reviewed, the latest 10/30/2019. CONTRAST: 100 mL Isovue-370. The lung bases are unchanged. There is a stable 8 mm sized nodule in the right lower lobe. The liver, spleen, pancreas, adrenal glands, and right kidney are unchanged. There are stable postoperative changes in the left renal fossa. The abdominal aorta and para-aortic regions are stable. No adenopathy has developed. The bowel loops and their mesenteries are unchanged. Mild descending colon diverticulosis is noted, status quo. No intra-abdominal mass or adenopathy has developed. There is no free fluid or free air in the abdomen. Bone window technique throughout the examination shows the osseous structures to be stable and intact. IMPRESSION: Stable CT findings, as described above. There is no evidence of acute disease. Electronically Signed by Mook Shaw DO 05/10/2020 01:58 P
== END ==
LOC: M RAD 09:50
PROVIDERS: ATTEND Urology
DX: C64.2 Malignant neoplasm of left kidney, except renal pelvis (principal); Z90.5 Acquired absence of kidney; K57.30 Diverticulosis of large intestine without perforation or abscess without bleeding
CPT/HCPCS: 71046; 74160; Q9967

== ENCOUNTER 2020-05-21 09:28 | Outpatient (CLI) | payer OTHER ==
[~2020-05-21] VITALS: Ht 152.4 cm; Wt 118.6 kg
[~2020-05-21 09:28] MED LIST changes: -ISOVUE-370 76% 100ML VIAL As Ordered ONE
[2020-05-21 09:38] VITALS: BP 135/78
[2020-05-21 10:01] VITALS: BP 134/69
== END 2020-05-21 10:00 | disposition home or self-care (01) ==
LOC: M INFU 09:28
PROVIDERS: ATTEND Internal Medicine Hematology & Oncology
DX: D75.1 Secondary polycythemia (principal)

== ENCOUNTER → 2020-06-25 | Outpatient (CLI) | payer OTHER ==
--- NOTE | 2020-08-07 10:43 | REP ---
PELVIC ULTRASOUND HISTORY: Postmenopausal bleeding. TECHNIQUE: Real-time sonographic evaluation of the pelvis performed utilizing transabdominal and endovaginal technique. FINDINGS: Bladder is not well distended measuring 5.0 x 3.5 cm. Uterus measures 9.0 x 4.3 x 6.5 cm. Endometrial echo complex is thickened at 21 mm. No endometrial fluid collection is seen. Right ovary is normal in size and echotexture, measuring 3.0 x 2.4 x 2.7 cm. The left ovary could not be visualized. Study is limited due to patients body habitus and bowel gas. There is no definite adnexal mass or free fluid. IMPRESSION: Thickened endometrium at 21 mm. I could not exclude endometrial hyperplasia or neoplasm. No evidence of adnexal mass or free fluid. MTDD
== END ==
LOC: M RAD 13:50
PROVIDERS: ATTEND Family Medicine
DX: N95.0 Postmenopausal bleeding (principal)

== ENCOUNTER → 2020-07-10 | Outpatient (REF) | payer OTHER ==
[2020-07-10 11:19] LABS: BASO # 0.1 10^3/uL (0.0-0.2); BASO % 0.7 % (0.0-1.0); EOS # 0.2 10^3/uL (0.0-0.5); EOS % 2.1 % (0.0-3.0); HEMATOCRIT 61.5 % (36.0-47.0); LYMPH # 1.9 10^3/uL (1.5-5.0); LYMPH % 22.6 % (24.0-44.0); MEAN CORPUSCULAR HEMOGLOBIN 29.5 pg (27.0-33.0); MEAN CORPUSCULAR HGB CONC 31.7 g/dl (32.0-36.5); MEAN CORPUSCULAR VOLUME 93.2 fl (80.0-96.0); MONO # 0.6 10^3/uL (0.0-0.8); MONO % 7.3 % (0.0-5.0); NEUTROPHILS # 5.7 10^3/uL (1.5-8.5); NEUTROPHILS % 66.9 % (36.0-66.0); PLATELET COUNT, AUTOMATED 201 10^3/uL (150-450); WHITE BLOOD COUNT 8.5 10^3/uL (4.0-10.0)
[2020-07-10 11:22] LABS: HEMOGLOBIN 19.5 g/dl (12.0-15.5)
[2020-07-10 11:44] LABS: ALBUMIN 3.4 GM/DL (3.2-5.2); ALT/SGPT 13 U/L (12-78); BILIRUBIN,TOTAL 0.4 MG/DL (0.2-1.0); BLOOD UREA NITROGEN 12 MG/DL (7-18); CARBON DIOXIDE LEVEL 30 MEQ/L (21-32); CHLORIDE LEVEL 106 MEQ/L (98-107); CHOLESTEROL LEVEL 201 MG/DL (<200); CHOLESTEROL RISK RATIO 3.941 (<5); CREATININE FOR GFR 0.92 MG/DL (0.55-1.30); FREE T4 1.04 NG/DL (0.76-1.46); GLOMERULAR FILTRATION RATE > 60.0 (>51); GLUCOSE, FASTING 88 MG/DL (70-100); HDL CHOLESTEROL 51 MG/DL (>40); LDL CHOLESTEROL 131 MG/DL (<100); NON-HDL-C 150 MG/DL; POTASSIUM SERUM 4.5 MEQ/L (3.5-5.1); SODIUM LEVEL 142 MEQ/L (136-145); TOTAL PROTEIN 6.9 GM/DL (6.4-8.2); TRIGLYCERIDES LEVEL 93 MG/DL (<150)
[2020-07-10 12:06] LABS: PROGESTERONE 0.59 NG/ML
[2020-07-10 12:07] LABS: FOLLICLE STIMULATING HORMONE 73.2 mIU/mL
== END ==
LOC: M LAB REF 10:16
PROVIDERS: ATTEND Family Medicine
DX: J44.9 Chronic obstructive pulmonary disease, unspecified (principal); F41.9 Anxiety disorder, unspecified; E66.3 Overweight

== ENCOUNTER 2020-07-12 11:00 | Outpatient (CLI) | payer OTHER ==
[2020-07-12 11:00] VITALS: BP 137/76
[2020-07-12 11:45] VITALS: BP 129/77
== END 2020-07-12 11:45 | disposition home or self-care (01) ==
LOC: M INFU 11:00
PROVIDERS: ATTEND Internal Medicine Hematology & Oncology
DX: D75.1 Secondary polycythemia (principal)

== ENCOUNTER → 2020-09-06 | Outpatient (REF) | payer OTHER | LOC: M SFHCWAGY 08:43 | PROVIDERS: ATTEND Nurse Practitioner Women's Health | DX: N93.9 Abnormal uterine and vaginal bleeding, unspecified (principal); N95.0 Postmenopausal bleeding ==

== ENCOUNTER 2020-12-28 22:54 | Observation (INO) | payer BC, OTHER ==
[~2020-12-28] VITALS: Ht 165.1 cm; Wt 131.4 kg
--- OUTSIDE RECORDS SUMMARY | 2020-12-28 23:01 | CCD ---
Author Author [facility] Organization [facility] Address Unknown Phone Unavailable Care Team Providers Care Pet Counselor Name Role Phone Mago Spear Unavailable PROBLEMS Type Condition ICD9-CM Code MJA38-AC Code Onset Dates Condition S tatus SNOMED Code Notes Problem Chronic obstructive pulmonary disease, unspecified COPD ty pe J44.9 Active 14506520 Problem Hyperlipidemia, unspecified hyperlipidemia type E7 8.5 Active 75148690 Problem Vitamin D deficiency disease E55.9 Active 347 22476 Problem Renal mass N28.89 Active 092619386 Problem Morbid (severe) obesity due to excess calories E66 .01 Active 266576340 Problem Body mass index (BMI) of 40.0-44.9 in adult Z68.41 Active 243843137 Problem Rosacea L71.9 Active 696493126 Problem Depression, unspecified depression type F32.9 Active 75389746 Problem Smoker F17.200 Active 60189621 Problem COPD with exacerbation J44.1 Active 583518206 Problem Status post nephrectomy Z90.5 Active 26861110 7 Problem Cigarette smoker F17.210 Active 20502174 Problem Uterine mass N85.9 Active 741406357839693 Problem Tobacco use disorder F17.200 Active 055916886 Problem Renal cell carcinoma of left kidney C64.2 Acti ve 856343471 Problem Vitamin D deficiency E55.9 Active 06704129 Problem Endometrial thickening on ultrasound R93.89 Act danish 586247223 Problem OAB (overactive bladder) N32.81 Active 3658773 02 Problem Anxiety F41.9 Active 99365073 Problem Other chronic pain G89.29 Active 29760891 Problem Hx of renal cell carcinoma Z85.528 Active 14116 1006 Problem Abnormal uterine bleeding (AUB) N93.9 Active 28915580500373 Problem PMB (postmenopausal bleeding) N95.0 Active 76 942137 Problem Morbid obesity due to excess calories E66.01 Ac tive 592814583 ALLERGIES No Known Allergies ENCOUNTERS from 1966 to 2020-12-09 Encounter Location Date Provider Diagnosis [facility] [address] [place] [id number] Oct, Mago Spear IMMUNIZATIONS Vaccine Route Administration Date Status Influenza (18 yrs & older) Flublok IM Intramuscular Oct 13, 2018 Administered Pneumococcal Adult 0.5mL (Pneumovax 23) IM Intramuscular Oct 13, 2018 Administered SOCIAL HISTORY Tobacco Use: Social History Observation Description Date Details (start date - stop date) Current Smoker Sex Assigned At : Social History Observation Description Sex Assigned At Unknown Audit Question Answer Notes Total Score: 1 Interpretation: Alcohol Education Church: Question Answer Notes Church 08 Catholic No caodaism beliefs that would impact health care. Sexual Hx: Question Answer Notes Had sex in the last 12 months (vaginal, oral, or anal)? Yes Have you ever had an STD? No with Men only Use protection? No Drug and Alcohol Question Answer Notes Total Score: 0 Interpretation: No problems reported Alcohol Screening: Question Answer Notes Did you have a drink containing alcohol in the past year? No Points 0 Interpretation Negative Tobacco Use: Question Answer Notes Are you a: current smoker PER PT HAS CUT BACK Patient counseled on the dangers of tobacco use and urged to quit: 08/22/2019 How many cigarettes a day do you smoke? 21-30 Are you interested in quitting? Not ready to quit Counseled the patient on smoking effects, education provided 08/22/2019 REASON FOR REFERRAL No Information VITAL SIGNS No information MEDICATIONS Medication SIG (Take, Route, Frequency, Duration) Notes Start Da te End Date Status Cyclobenzaprine HCl 10 MG Oral for 14 Not-Taking Qvar RediHaler 80 MCG/ACT Inhalation for 60 Not-Taking Colace 100 MG 1 capsule Orally bid for 30 day(s) 08 Sep, 2 018 Not-Taking Effexor XR 75 MG as directed Orally Once a day for 90 day(s) Active Aspir-81 Active LORazepam 0.5 MG 1 tablet as needed Orally (I STOP: [id number]) Once a day for 30 days Active Tylenol 1 tab Oral for 14 days Ac tive Tylenol 8 Hour Arthritis Pain 650 MG 2 tablets as needed Orally ginny ry 8 hrs Not-Taking Nebulizer - as directed _ every 6 hours as needed for 30 day(s) Aug, Active Bevespi Aerosphere 9-4.8 MCG/ACT 2 puffs Inhalation Twice a day Active ProAir HFA 108 (90 Base) MCG/ACT 2 puffs as needed Inh alation every 6 hrs for 30 days Not-Taking Albuterol Sulfate (2.5 MG/3ML) 0.083% 3 ml as needed Inhalation ginny ry 6 hrs Active Fluticasone Propionate 50 MCG/ACT 1 spray in each nost ril Nasally Once a day for 30 days Active Gas Relief 80 MG 1 tablet after meals and at bedtime as needed Orally Four times a day Not-Taking Vitamin D3 1000 UNIT 1 capsule Orally Once a day for 30 day(s) Aug, Not-Taking Full Kit Nebulizer Set - as directed orally every 6 h ours as needed for 30 day(s) Aug, Active PROCEDURES No Information RESULTS No Results REASON FOR VISIT Other MEDICAL (GENERAL) HISTORY Type Description Date Medical History COPD Medical History [place] 06/01 - decreased FEV1, FVC, and FE V1/FVC ratio Medical History Allergic rhinits Medical History Depression Medical History Anxiety Medical History Vitamin D deficiency Medical History Echocardiogram 10/31 - LVEF 70%, normal LV systolic and diastolic function Medical History Colonoscopy 2015 - tubular a denoma x 3, hyperplastic polyp. Repeat 5 yrs Medical History IBS - diarrhea predominant Medical History Hyperlipidemia Medical History ASCVD risk 3.3% on 07/02 Medical History 10 cm left renal mass noted on CT A&P Medical History S/p radical left nephrectomy for RCC 07/17 018 Medical History Mulitple pumonary nodules, l argest 6 mm - unchanged on CT . Fleschner criteria recommends repeat CT in 18-29 months (06/2020) Medical History Polycythemia thought to be secondary to smoking - per Hem/Onc Medical History Declines ALAN evaluation & further appt's w/ pulmonology Surgical History C section Surgical History Cholecystectomy Surgical History Colonoscopy 08/2016 - tubula r adenoma x 3, hyperplastic polyp. Repeat 5 yrs Surgical History Hemorrhoid banding - Dr. Trivedi 2016 Surgical History Left radical nephrectomy - Dr. Zaidi 07/21/2018 Hospitalization History pneumonia 10/2017 Hospitalization History Surgery related Hospitalization History Bronchitis 2014 Hospitalization History COPD exacerbation w/ hypoxia, + inf luenza 01/2019 Goals Section No Information Health Concerns No Information MEDICAL EQUIPMENT No Information MENTAL STATUS No Information FUNCTIONAL STATUS No Information ASSESSMENTS No Information PLAN OF TREATMENT Next Appt Details Provider Name:Mago Spear, 2020-12-16 10:00:00 AM, [address] [place], [id number], Provider Name:Mago Spear, 2021-03-31 10:40:00 AM, [address] [place], [id number], Provider Name:Levy Seay, 2021-05-28 03:30:00 PM, [address], [place], [phone], Insurance Providers Payer Name Payer Address Payer Phone Insured Name Patient Relati onship to Insured Coverage Start Date Coverage End Date LILIANELA (NON MEDICAID MANAGED CARE) CORPORATE CLAIMS DEPT [address] [facility] [phone] GABO SILVA self
--- OUTSIDE RECORDS SUMMARY | 2020-12-28 23:02 | CCD ---
Author Author [facility] Organization [facility] Address Unknown Phone Unavailable Care Team Providers Care Leadership Coach Name Role Phone Barraclough, Nicolasa PA Unavailable Unavailable Barraclough, Nicolasa PA Unavailable Unavailable Barraclough, Nicolasa PA Unavailable Unavailable Barraclough, Nicolasa PA Unavailable Unavailable Barraclough, Nicolasa PA Unavailable Unavailable Barraclough, Nicolasa PA Unavailable Unavailable Re-disclosure Warning The records that you are about to access may contain information from federally-assisted alcohol or drug abuse programs. If such information is present, then the following federally mandated warning applies: This information has been disclosed to you from records protected by federal confidentiality rules (42 CFR part 2). The federal rules prohibit you from making any further disclosure of this information unless further disclosure is expressly permitted by the written consent of the person to whom it pertains or as otherwise permitted by 42 CFR part 2. A general authorization for the release of medical or other information is NOT sufficient for this purpose. The Federal rules restrict any use of the information to criminally investigate or prosecute any alcohol or drug abuse patient.The records that you are about to access may contain highly sensitive health information, the redisclosure of which is protected by Article 27-F of the [facility] Public Health law. If you continue you may have access to information: Regarding HIV / AIDS; Provided by facilities licensed or operated by the [facility] Office of Mental Health; or Provided by the [facility] Office for People With Developmental Disabilities. If such information is present, then the following [facility] mandated warning applies: This information has been disclosed to you from confidential records which are protected by state law. State law prohibits you from making any further disclosure of this information without the specific written consent of the person to whom it pertains, or as otherwise permitted by law. Any unauthorized further disclosure in violation of state law may result in a fine or snf sentence or both. A general authorization for the release of medical or other information is NOT sufficient authorization for further disc losure. Family History Family Member Name Family Member Gender Family Member Status Date o f Status Description Data Source(s) Unknown Unknown Problem [facility] ([facility], ) Encounters Encounter Providers Location Date Indications Data Source(s ) Unknown [address] [facility] [address] 10/15/2020 12:00:00 AM EST eCW1 ([facility]) Outpatient Attender: Nicolasa PRIEST [facility] ce 08/22/2020 10:00:00 AM EDT [facility] ([facility] Outpatient Attender: Nicolasa PRIEST [place] [facility] ce 07/16/2020 10:00:00 AM EDT [facility] ([facility] Outpatient Attender: Nicolasa PRIEST [facility] ce 06/04/2020 01:30:00 PM EDT [facility] ([facility] TeleMedicine Phone E/M by Phys 11-20 Min [address] [place] [address] 05/28/2020 12:00:00 AM EDT eCW1 ([facility]) [facility] [address] [facility] [address] 05/09/2020 12:00:00 AM EDT eCW1 ([facility]) [place] [address] [facility] [address] 05/03/2020 12:00:00 AM EDT eCW1 ([facility]) [facility] [address] [facility] [address] 05/01/2020 12:00:00 AM EDT eCW1 ([facility]) [place] [address] [facility] [address] 04/11/2020 12:00:00 AM EDT eCW1 ([facility]) [facility] [place] [address] [facility] [address] 02/08/2020 12:00:00 AM EDT eCW1 ([facility]) [facility] [address] [facility] [address] 01/04/2020 12:00:00 AM EST eCW1 ([facility]) Outpatient 11/19/2019 06:16:00 PM EST [facility] [address] [facility] [address] 11/03/2019 12:00:00 AM EST eCW1 ([facility]) Medications Medication Brand Name Start Date Product Form Dose Route Admi nistrative Instructions Pharmacy Instructions Status Indications Reaction Description Data Source(s) Airborne Gummies 08/28/2020 12:00:00 AM EDT a ctive [facility] ([facility] 24 HR venlafaxine 75 MG Extended Release Oral Capsule Venlaf axine HCL ER 08/26/2020 12:00:00 AM EDT ORAL active [facility] ([facility] Albuterol 0.83 MG/ML Inhalant Solution Albuterol Sulfate 1 12:00:00 AM EDT active MED[facility] ([facility] Bevespi Aerosphere Bevespi Aerosphere 06/04/2020 12:00:00 AM EDT RESPIRATORY active [facility] ([facility] 200 ACTUAT Albuterol 0.09 MG/ACTUAT Metered Dose Inhaler [Pr oAir] Proair HFA 06/04/2020 12:00:00 AM EDT RESPIRATORY active MED[facility] ([facility] venlafaxine 75 MG Oral Tablet Venlafaxine HCL 06/04/2020 12:00:00 AM EDT ORAL completed [facility] ([facility] Insurance Providers Payer name Policy type / Coverage type Policy ID Covered republican ID Covered republican's relationship to dubose Policy Dubose Plan Information [facility] [id number] SP [id number] [facility] [id number] SP [id number] [facility] [id number] S [id number] [facility] [id number] SP [id number] [facility] [id number] [facility] Health Maintenance Organization (O) [id number] Self [id number] [facility] [place] Medicaid [id number] Self [id number] [facility] Commercial [id number] Self [id number] [facility] Health Maintenance Organization [place] [id number] Self [id number] [employer] [place] Medicaid [id number] Self [id number] ANSI-Not a Secondary Insurance [id number] ANSI-Commercial [id number] ANSI-Not a Secondary Insurance [id number] ANSI-Commercial [id number] [id number]-3jyo-[id number] ANSI-Not a Secondary Insurance [id number] ANSI-Commercial [id number] [facility] Health Maintenance Organization (O) [id number] Self [id number] [facility] [place] Medicaid [id number] Self [id number] ANSI-Not a Secondary Insurance [id number] ANSI-Commercial [id number]-[id number] 7frc14q6-9f16-1jzg-u1m8-[id number] ANSI-Not a Secondary Insurance [id number] ANSI-Commercial [id number]-30ek-[id number] ANSI-Not a Secondary Insurance [id number] ANSI-Commercial [id number]-[id number] [id number]-[id number] [facility] Maintenance [facility] ([facility] [id number] Self [id number] [employer] [place] Medicaid [id number] Self [id number] ANSI-Not a Secondary Insurance [id number] ANSI-Commercial [id number] ANSI-Commercial [id number] ANSI-Not a Secondary Insurance [id number]-[id number] ANSI-Not a Secondary Insurance [id number] r5g8qu7 [id number]-1kz5-[id number] ANSI-Commercial [id number]-ic65-24o2-[id number] 67cic4q6-zb89-85n1-[id number] ANSI-Not a Secondary Insurance [id number]-[id number]-j2tn5 [id number] [id number]-[id number]-[id number] ANSI-Commercial 5a22wvmm-pw1r-93u2-[id number] 9z83fdnz-th4y-96f3-[id number] ANSI-Not a Secondary Insurance [id number]-f792-49em-y984-11bp0 [id number] gis92i1p-d665-23ab-e080-59vm6f5852e1 ANSI-Commercial 5b90na93-c704-88n9-ctxd-3wxh401497wk 1w24fo63-u518-86z7-zyom-7fqd637005ub ANSI-Commercial mx04z137-o578-9h64-e204-4o834q952b6p xz48h610-q773-2q18-f067-1o665x769q8f ANSI-Not a Secondary Insurance [id number]-y451-286sr [id number] [id number]-86o7-1053-t413-526kw234rr8b ANSI-Commercial 1ya5w0f6-944n-1906-d52o-m43a846k8m20 7zo7e4g5-860j-2789-s43l-h01c235u9i17 ANSI-Not a Secondary Insurance [id number]-rsiu-90hb-36vc-9v882 6t256tf [id number]-stex-64ui-56vw-[id number] ANSI-Commercial 6103gn71-cg4i-118k-r8a8-1070v95l1993 2713nx05-ks9h-329x-k6x1-8287b17z6371 ANSI-Not a Secondary Insurance 1s7y6w69-558v-25yj-e7n1-lue89 [id number] 9s6n6i09-234o-78xd-i3r2-oxm066zg1587 ANSI-Not a Secondary Insurance [id number] [id number] [id number]781eb4xj568 ANSI-Commercial 5x49c13x-361z-825v-31u2-224j7i87t3vk 4s02x78y-884s-837o-12s3-838u6j05q2ml ANSI-Not a Secondary Insurance yrllihr3-v91h-7t26k48l-6y50-873b-335s5 fefad66 jqlqotg5-z65b-9u69x81p-4q42-638a-120o2xilrg17 ANSI-Commercial g54801h4-046l-492y-k5s5-q03xbxnen659 c52069f1-732u-830b-y5q3-b56hmogfg918 ANSI-Not a Secondary Insurance 73t8132r-5z7p-4016-n564-8s68n 5q838ej 76p9513u-9t5w-0594-r770-9d85q6a161da ANSI-Commercial 05o2f549-7034-1818-k476-zf9r363k4to4 03n7m667-1821-5728-f463-ye8n348c4rc8 ANSI-Commercial h3sg012n-5k07-16g2-0359-z7922i2s5781 l2ux660j-1n93-48z4-6430-m2198d2a7181 ANSI-Not a Secondary Insurance yz9me688-k5a7-131e-04i8-5az56 6s31z02 qi4ig117-w4l1-828h-26s7-3qg410i76h97 [facility] [id number] 7 [id number] [facility] Health Maintenance Organization (HMO) [id number] Self [id number] [facility] Medicaid [id number] Self [id number] ANSI-Commercial [id number]-[id number] 6055zxw7-s580-33kn-e056-858z0069094b ANSI-Not a Secondary Insurance f53p12w5-m381-0hs7-xr96-31dy2 [id number] h74l75h8-m616-3nv5-fr72-91ca8417446g ANSI-Commercial vz500ht5-976w-[id number] ui440yt4-897m-7043-1z18-36e479291564 ANSI-Not a Secondary Insurance 45691989-a770-8l93-xo4i-b7c06 r10i2p3 64647209-n945-0y86-ms9s-w9r82w59r8h5 ANSI-Not a Secondary Insurance 6800y236-1642-7abj-3052-b41iq 6o8564z 3033p142-2050-4mhe-8979-i04bd9y3884o ANSI-Commercial u123kc0s-121h-3i11-lv8p-082he5l0n165 d632jw2d-323k-3l48-wr9w-117bg9u5n809 ANSI-Not a Secondary Insurance n264q3o5-6n67-4r33-w647-658ri 950q3t7 f699w9w1-1h97-9e69-g788-218pw043u1s4 ANSI-Commercial 45w8jw9v-af71-4ge9-ym69-8kh10t7v626w 88j1gs1l-wx65-9km0-pl16-4oc39t9b426k ANSI-Commercial 7dgu732x-1z92-4a23-c50a-t8288o9p59f9 3mqe540x-4z75-8g82-a70g-u7815x2x37g6 ANSI-Not a Secondary Insurance 150b75tq-660a-9007-m3s9-2hg8v 49tuf73 110o03ow-532b-2334-z4d4-5jf5c16odz66 ANSI-Not a Secondary Insurance o5q44588-uim6-0mf7-2ba5-77x17 eu50875 l7o97266-xjr2-7cb9-9kl2-24h64lr96123 ANSI-Commercial 28994085-4jb6-97b5-3245-y2200v38389r 11669777-4rg0-47z7-8347-d4090t34929v ANSI-Not a Secondary Insurance 3p4186m8-1095-438o-6679-13pzz p26f464 3b0169j6-7282-674n-1932-00nnkr15v939 ANSI-Commercial 71lx95tg-a98x-32b7-c97c-8716330086r7 89me71xh-s17o-61f3-v89v-1432454518z7 ANSI-Commercial 46804uh7-53z2-4o26-9t4h-u48c67ma987l 87566yt6-37p9-9y12-0m4l-y86d60il876c ANSI-Not a Secondary 1469lb6 wu6vi37i-di94-1d44-21e6-8596w4139xt1 ANSI-Not a Secondary Insurance 16260u07-wi65-55t0-6423-o02k6 9mobpu0 13850s73-tn66-68w6-5482-r37e10bwven8 ANSI-Commercial j62y2990-1557-181r-zxo8-85tl8c5sth11 q60d3866-1784-062e-tkn2-01xv1r0cte26 ANSI-Commercial 402iqax9-569q-77c1-82fy-61021v0196y8 779krhx5-266q-81r5-71df-12906v9475w0 ANSI-Not a Secondary Insurance s8m18uqr-4200-1311-56on-ic8u6 c52p93s w6v51rxs-0204-8031-21fi-jk7b9n26v57w ANSI-Not a Secondary Insurance pj8f7c8e-69s1-9910-820k-t56it 7539q29 cq3r8b1m-31t1-5637-769t-c07sa0438j12 ANSI-Commercial 8a7b0xy9-h83o-2141-494a-0x975r52342p 8u1n0tz0-a90l-6884-525c-1x786b75772j ANSI-Commercial 25ecpdqj-5092-24tx-74a7-13xj061hi5f2 29zyzbyf-7343-84ll-64q7-24vj115xw1o1 ANSI-Not a Secondary Insurance 5y9r0v0g-kt73-18tm-2l25-8sx61 [id number] 2u6y9v6z-ss05-29vh-0o95-0ro7765p8374 [facility] [id number] Self [id number] ANSI-Commercial au6d5i90-s459-82sp-iw7h-po1q45865j2s ed0j3i69-k452-97if-uu5a-mq2d08059u9x ANSI-Not a Secondary Insurance ygc7ex21-495v-04xj-a3h4-4d595 q0964y2 ofy2uc68-292a-79mu-d0c8-8u445y7666w7 ANSI-Commercial k61631m9-92j6-10v4-9pj4-0d0429338l59 b82963u1-92s2-77y9-5wt3-8k1943480n29 ANSI-Not a Secondary Insurance 94541f77-pt74-9012-7u0h-r6qhy r608uu2 44957a95-ui25-5012-8f9f-g7eyej217qq9 ANSI-Commercial 495ag585-47fx-55l3-i841-7lfye926cu36 686jc871-36up-55w6-r673-1ehed344hb54 ANSI-Not a Secondary Insurance 8ha09x3s-by26-134g-6xa5-j09wa 7514r96 9et05c5j-fd83-136h-6ka7-u22io4927f45 ANSI-Commercial 61td8o86-2579-2z11-i070-466ep765x3c5 49aw1s38-1038-0l70-h892-588bv769c8n2 ANSI-Not a Secondary Insurance bq98p388-qaj9-02d3-b361-6l25d 0l87yr4 qd76k679-piv9-85b8-c888-6r50a8u85io3 ANSI-Commercial 5210flu7-2976-3423-i248-6o6f613dib6m 9278chk6-2203-1833-s921-9w4s579ywr3j ANSI-Not a Secondary Insurance 4aih1452-18u6-744j-1q75-ylp93 r6ysfx3 1ker3180-85h2-809b-7a36-ift45b4roko6 ANSI-Commercial q9g8f351-kp15-961r-o25l-w84384y980u9 q9i8y355-cv42-158r-t76y-u20428r359k9 ANSI-Not a Secondary Insurance 12v15263-s089-5923-j1n2-7790e 5g914f7 97y96885-j724-1855-u2e0-2580h1m325p5 ANSI-Not a Secondary Insurance 6byw5448-652x-079l-3i7k-d7p7c 25m414n 1lbl3975-991u-913b-5x9t-z6r3c81s447w ANSI-Commercial r21676y1-a4x2-6v63-4os5-2y93s4d69834 q59757u9-y6w7-2d31-3ul1-1t76u4c97489 ANSI-Commercial d68t7026-1623-9f0d-c0t2-69e93pkmx41h o42b5165-2067-7d4c-f4u8-78u69nykn60i ANSI-Not a Secondary Insurance 38ei20w1-j966-69z8-o922-3374v [id number] 19su74j7-w197-28k2-h865-5384s81k3053 O UNAVAILABLE UNAVAILA BLE SELF PAY ONLY [id number] SP [id number] Self Pay P [id number] S [id number] SELF PAY ONLY UNAVAILABLE SP UNAV AILABLE [facility] [id number] SP [id number] [employer] [facility] Commercial Self SELF PAY ONLY [id number] SP [id number] [facility] [id number] SP [id number] [employer] Health Maintenance Organization (HMO) MVP Premier Bronze Self MVP Premier [employer] [facility] Health Commercial Self Sliding Fee Scale P [id number] S [id number] [facility] Plan P [id number] S [id number] SELF PAY UNAVAILABLE SP UNAVAILA BLE WELLNESS CONNECTION [id number] SP [id number] Problems, Conditions, and Diagnoses Code Display Name Description Problem Type Effective Dates Data Source(s) R93.89 431654606 Endometrial thickening on ultrasound Prob yaz 10/07/2020 12:00:00 AM EST eCW1 ([facility]) F17.200 403839566 Tobacco use disorder Problem 09/06/2020 12:0 0:00 AM EDT eCW1 ([facility]) E66.01 [id number] Morbid obesity due to excess calories Pro blem 09/03/2020 12:00:00 AM EDT eCW1 ([facility]) N95.0 05778320 PMB (postmenopausal bleeding) Problem 2019 12:00:00 AM EDT eCW1 ([facility]) N93.9 [id number] Abnormal uterine bleeding (AUB) Problem 09/03/2020 12:00:00 AM EDT eCW1 ([facility]) 901670269 Polycythemia vera (clinical) Polycythemia vera (clinic al) Problem 08/22/2020 12:00:00 AM EDT [facility] ([facility] ) 091083769 Left kidney absent Left kidney absent Problem 06/2020 12:00:00 AM EDT MEDENT ([facility] [id number] History of malignant neoplasm of kidney History of malignant neoplasm of kidney Problem 06/05/2020 12:00:00 AM EDT MED[facility] ([facility] [id number] Anxiety state Anxiety state Problem 06/05/2020 12:00:00 AM EDT MED[facility] ([facility] [id number] Chronic obstructive lung disease Chronic obstruc tive lung disease Problem 06/05/2020 12:00:00 AM EDT [facility] ([facility] Results ID Date Data Source [id number] 07/10/2020 10:16:00 AM EDT [facility] ([facility] Name Value Range Interpretation Code Description Data Judith rce(s) Supporting Document(s) Follitropin [Units/volume] in Serum or Plasma 73.2 mIU/mL Normal (applies to non-numeric results) [facility] ([facility]) <content>NORMAL MENSTRUATING FEMALES:</c ontent>
<content>FOLLICULAR PHASE 2.5-10.2 mIU/mL</content>
<content>MID CYCLE PEAK 3.4-33.4 mIU/mL</content>
<content>LUTEAL PHASE 1.5-9.1 mIU/mL</content>
<content></content>
<content>: <0.3 mIU/mL</content>
<content>POST MENOPAUSAL FEMALES: 23.0-116.3 mIU/mL</content>
<content></content> ID Date Data Source [id number] 07/10/2020 10:16:00 AM EDT [facility] ([facility] Name Value Range Interpretation Code Description Data Judith rce(s) Supporting Document(s) Thyroid Stimulating Hormone 1.040 uIU/ML 0.358-3.740 Norm al (applies to non- numeric results) [facility] ([facility] Free T4 1.04 ng/dL 0.76-1.46 Normal (applies to non-numeric resul ts) [facility] ([facility] ID Date Data Source [id number] 07/10/2020 10:16:00 AM EDT [facility] ([facility] Name Value Range Interpretation Code Description Data Judith rce(s) Supporting Document(s) Progesterone [Mass/volume] in Serum or Plasma 0.59 ng/mL Normal (applies to non-numeric results) [facility] ([facility]) <content>Normal Ranges (ng/ml)</content>
<content>Females :</content>
<content>FOLLICULAR PHASE 0.15- 1.40</content>
<content>LUTEAL PHASE 3.34-25.56</content>
<content>MID-LUTEAL PHASE 4.44- 28.03</content>
<content>POST MENOPAUSAL <0.73</content>
<content></content>
<content> Females :</content>
<content>1st TRIMESTER 11.22- 90.00</content>
<content>2nd TRIMESTER 25.55- 89.40</content>
<content>3rd TRIMESTER 48.40-422.50</content>
<content></content> ID Date Data Source [id number] 07/10/2020 10:16:00 AM EDT [facility] Name Value Range Interpretation Code Description Data Judith rce(s) Supporting Document(s) Triglycerides Level 93 mg/dL Normal (applies to non-nume thomas results) [facility] ([facility] Cholesterol Level 201 mg/dL Above high normal [facility] ([facility] Non-HDL-C 150 mg/dL Normal (applies to non-numeric resul ts) [facility] ([facility] HDL Cholesterol 51 mg/dL Normal (applies to non-numeric results) [facility] ([facility] LDL Cholesterol 131 mg/dL Above high normal [facility] ([facility] Cholesterol Risk Ratio 3.941 Normal (applies to non-n umeric results) [facility] ([facility] ID Date Data Source [id number] 07/10/2020 10:16:00 AM EDT [facility] ([facility] Name Value Range Interpretation Code Description Data Judith rce(s) Supporting Document(s) Creatinine For GFR 0.92 mg/dL 0.55-1.30 Normal (applies to non -numeric results) [facility] ([facility] Glucose, Fasting 88 mg/dL 70-100 Normal (applies to non-numeric results) [facility] ([facility] Blood Urea Nitrogen 12 mg/dL 7-18 Normal (applies to non-nume thomas results) [facility] ([facility] Potassium Serum 4.5 meq/L 3.5-5.1 Normal (applies to non-numeric results) [facility] ([facility] Sodium Level 142 meq/L 136-145 Normal (applies to non-numeric res ults) [facility] ([facility] Glomerular Filtration Rate Laboratory test result Normal (applies to non- numeric results) [facility] ([facility] ) <content>Units are mL/min/1.73 m2</content>
<content></content>
<content>Chronic Kidney Disease Staging per NKF:</content>
<content></content>
<content>Stage I & II GFR >=60 Normal to Mildly Decreased</content>
<content>Stage III GFR 30- 59 Moderately Decreased</content>
<content>Stage IV GFR 15-29 Severely Decreased</content>
<content>Stage V GFR <15 Very Little GFR Left</content>
<content>ESRD GFR <15 on BLOWER ROOM ATTENDANT</content>
<content></content> Anion Gap 6 meq/L 8-16 Below low normal [facility] ( [facility] Chloride Level 106 meq/L 98-107 Normal (applies to non-numeric r esults) [facility] ([facility] Carbon Dioxide Level 30 meq/L 21-32 Normal (applies to non-num danuta results) [facility] ([facility] Alt/SGPT 13 U/L 12-78 Normal (applies to non-numeric resul ts) [facility] ([facility] Calcium Level 9.0 mg/dL 8.5-10.1 Normal (applies to non-numeric re sults) [facility] ([facility] Ast/Sgot 9 U/L 7-37 Normal (applies to non-numeric resul ts) [facility] ([facility] Alkaline Phosphatase 179 U/L 45-117 Above high normal [facility] ([facility] Bilirubin,Total 0.4 mg/dL 0.2-1.0 Normal (applies to non-numeric results) [facility] ([facility] Total Protein 6.9 GM/DL 6.4-8.2 Normal (applies to non-numeric re sults) [facility] ([facility] Albumin 3.4 GM/DL 3.2-5.2 Normal (applies to non-numeric resul ts) [facility] ([facility] Albumin/Globulin Ratio 1.0 1.2-2.2 Below low normal [facility] ([facility] ID Date Data Source [id number] 07/10/2020 10:16:00 AM EDT [facility] Name Value Range Interpretation Code Description Data Judith rce(s) Supporting Document(s) White Blood Count 8.5 10 4.0-10.0 Normal (applies to non-numeri c results) [facility] ([facility] Hematocrit 61.5 % 36.0-47.0 Above high normal [facility] ([facility] Red Blood Count 6.60 10 4.00-5.40 Above high normal [facility] ([facility] Hemoglobin 19.5 g/dL 12.0-15.5 Above high normal [facility] ([facility] Mean Corpuscular HGB Conc 31.7 g/dL 32.0-36.5 Below low normal [facility] ([facility] Mean Corpuscular Volume 93.2 fl 80.0-96.0 Normal ( applies to non-numeric results) [facility] ([facility] ) Mean Corpuscular Hemoglobin 29.5 pg 27.0-33.0 Norm al (applies to non-numeric results) [facility] ([facility] ) Platelet Count, Automated 201 10 150-450 Normal (applies to non-numeric results) [facility] ([facility] ) Neutrophils % 66.9 % 36.0-66.0 Above high normal [facility] NT ([facility] Red Cell Distribution Width 14.7 % 11.5-14.5 Above high normal [facility] ([facility] Eos % 2.1 % 0.0-3.0 Normal (applies to non-numeric resul ts) [facility] ([facility] Baso % 0.7 % 0.0-1.0 Normal (applies to non-numeric resul ts) [facility] ([facility] [place] % 7.3 % 0.0-5.0 Above high normal [facility] ([facility] Lymph % 22.6 % 24.0-44.0 Below low normal [facility] ( [facility] Immature Granulocyte % 0.4 % 0-3.0 Normal (applies to non-n umeric results) [facility] ([facility] Neutrophils # 5.7 10 1.5-8.5 Normal (applies to non-numeric re sults) [facility] ([facility] Nucleated Red Blood Cell % 0.0 % 0-0 Normal (applies to n on-numeric results) [facility] ([facility] [place] # 0.6 10 0.0-0.8 Normal (applies to non-numeric resul ts) [facility] ([facility] Eos # 0.2 10 0.0-0.5 Normal (applies to non-numeric resul ts) [facility] ([facility] Lymph # 1.9 10 1.5-5.0 Normal (applies to non-numeric resul ts) [facility] ([facility] Baso # 0.1 10 0.0-0.2 Normal (applies to non-numeric resul ts) [facility] ([facility] ID Date Data Source [id number] 07/10/2020 09:40:00 AM EDT [facility] ([facility] Name Value Range Interpretation Code Description Data Judith rce(s) Supporting Document(s) Estrogen [Mass/volume] in Serum or Plasma 87 pg/mL Normal (applies to non- numeric results) [facility] ([facility] ) <content>Prepubertal <40</cont ent>
<content>Female Cycle:</content>
<content>1-10 Days 61 - 394</content>
<content>11- 20 Days 122 - 437</content>
<content>21-30 Days 156 - 350</content>
<content>Post-Menopausal <40</content>
<content>[facility]</content>
<content>Induction: 400 - 800</content>
<content>Performed at: [facility]</content>
<content>[address] [place] [id number]</content>
<content>Windshield Repair Technician: Ryan Bhatia MD, Phone: [phone]</content>
<content></content> ID Date Data Source [id number] 06/25/2020 03:32:00 PM EDT MED[facility]AH ([facility] Name Value Range Interpretation Code Description Data Judith rce(s) Supporting Document(s) Pelvic US With Vaginal Probe Laboratory test result MED[facility]BORAH ( [facility] Procedure Social History Code Duration Value Status Description Data Source(s ) Smoking 10/07/2020 12:00:00 AM EST Current Smoker completed Curre nt Smoker eCW1 ([facility]) Smoking 05/28/2020 12:00:00 AM EDT Current Smoker completed Curre nt Smoker eCW1 ([facility]) Smoking 11/03/2019 12:00:00 AM EST Current Smoker completed Curre nt Smoker eCW1 ([facility]) Smoking 11/03/2019 12:00:00 AM EST Current Smoker completed Curre nt Smoker eCW1 ([facility]) Vital Signs ID Date Data Source UNK Name Value Range Interpretation Code Description Data Source(s) Oxygen saturation in Arterial blood by Pulse oximetry 92 % 92 % MED[facility]AH ([facility] Body mass index (BMI) [Ratio] 43.6 kg/m2 43.6 k g/m2 [facility]AH ([facility] Williams body weight 125 [lb_av] 125 [lb_av] MEDEN T ([facility] Body weight 262.00 [lb_av] 262.00 [lb_av] MEDEN T ([facility] Body height 65 [in_i] 65 [in_i] [facility]AH ([facility] 5'5" Respiratory rate 18 /min 18 /min ROCÍO ( [facility] Heart rate 100 /min 100 /min ROCÍO ([facility] Body temperature 97.4 [degF] 97.4 [degF] MEDDEBORAH ([facility] Diastolic blood pressure 80 mm[Hg] 80 mm[Hg] [facility] ([facility] Systolic blood pressure 108 mm[Hg] 108 mm[Hg] M EDENT ([facility] Oxygen saturation in Arterial blood by Pulse oximetry 92 % 92 % [facility] ([facility] Body mass index (BMI) [Ratio] 43.4 kg/m2 43.4 k g/m2 [facility] ([facility] Williams body weight 125 [lb_av] 125 [lb_av] MEDEN T ([facility] Body weight 261.00 [lb_av] 261.00 [lb_av] MEDEN T ([facility] Body height 65 [in_i] 65 [in_i] MEDENT ([facility] 5'5" Respiratory rate 20 /min 20 /min MEDENT ( [facility] Heart rate 92 /min 92 /min MED[facility] ([facility] Body temperature 97.3 [degF] 97.3 [degF] [facility] ([facility] Diastolic blood pressure 64 mm[Hg] 64 mm[Hg] MED[facility] ([facility] Systolic blood pressure 106 mm[Hg] 106 mm[Hg] M EDENT ([facility] Oxygen saturation in Arterial blood by Pulse oximetry 93 % 93 % [facility] ([facility] Body mass index (BMI) [Ratio] 42.8 kg/m2 42.8 k g/m2 [facility] ([facility] Body weight 257.00 [lb_av] 257.00 [lb_av] MEDEN T ([facility] Body height 65 [in_i] 65 [in_i] MEDENT ([facility] 5'5" Respiratory rate 18 /min 18 /min MEDENT ( [facility] Heart rate 98 /min 98 /min MEDENT ([facility] Body temperature 97.8 [degF] 97.8 [degF] MEDENT ([facility] Diastolic blood pressure 60 mm[Hg] 60 mm[Hg] ROCÍO ([facility] Systolic blood pressure 98 mm[Hg] 98 mm[Hg] Mary Carmen ARCHULETA ([facility] Diastolic blood pressure mm[Hg] eCW1 ([facility]) Systolic blood pressure 118 mm[Hg] 118 mm[Hg] e CW1 ([facility]) Body temperature 97.9 [degF] 97.9 [degF] eCW1 ( [facility]) Respiratory rate 18 /min 18 /min eCW1 ([facility]) Heart rate 93 /min 93 /min eCW1 ([facility]) Body mass index (BMI) [Ratio] 44.97 kg/m2 44.97 kg/m2 eCW1 ([facility]) Body height 64 [in_us] 64 [in_us] eCW1 ([facility]) Body weight Measured 262 [lb_av] 262 [lb_av] eC W1 ([facility])
[2020-12-28] MEDS ORDERED: MUCI1TAB16 PO (23:14)
[2020-12-28] MEDS ORDERED: ALBU83IN NEB (23:14)
[2020-12-28] MEDS ORDERED: NS 1,000 ML IV ONE (23:45)
[2020-12-28] MEDS: COMBIVENT RESPIMAT 100-20MCG INHALER 4GM INH SCH (23:45)
[2020-12-28] MEDS ORDERED: methylPREDNISolone 125MG 2ML VIAL IV ONE (23:45)
[2020-12-29] MEDS: COMBIVENT RESPIMAT 100-20MCG INHALER 4GM INH SCH ×2 (00:05→00:25)
--- NOTE | 2020-12-29 00:23 | REPVR ---
PROCEDURE INFORMATION: Exam: XR Chest, 1 View Exam date and time: 12/28/2020 12:04 AM Age: 55 years old Clinical indication: Cough; Additional info: Dyspnea/cough TECHNIQUE: Imaging protocol: XR of the chest Views: 1 view. COMPARISON: SR CT Chest without contrast 04/28/2019 1:17 PM FINDINGS: Lungs: Mild bibasilar infiltrate or atelectasis. Pleural spaces: Unremarkable. No pleural effusion. No pneumothorax. Heart/Mediastinum: Unremarkable. No cardiomegaly. Bones/joints: Unremarkable. Soft tissues: There are generous overlying soft tissues. IMPRESSION: 1. Mild bibasilar infiltrate or atelectasis. 2. Otherwise negative chest. Electronically signed by: Augustine Riddle On 12/29/2020 00:23:24 AM
--- OUTSIDE RECORDS SUMMARY | 2020-12-29 00:37 | CCD ---
Author Author [facility] Organization [facility] Address Unknown Phone Unavailable Care Team Providers Care Otolaryngology Teacher Name Role Phone Barraclough, Nicolasa PA Unavailable [...] is protected by Article 27-F of the [facility] Public Health law. If you continue you may have access to information: Regarding HIV / AIDS; Provided by facilities licensed or operated by the [facility] Office of Mental Health; or Provided by the [facility] Office for People With Developmental Disabilities. If such information is present, then the following [facility] mandated warning applies: This information has [...] law may result in a fine or detention sentence or both. A general authorization for the release of medical or other information is NOT sufficient authorization for further disc losure. Family History Family Member Name Family Member Gender Family Member Status Date o f Status Description Data Source(s) Unknown Unknown Problem [facility] ([facility], ) Encounters Encounter Providers Location Date Indications Data Source(s ) Unknown [address] [facility] [address] 10/15/2020 12:00:00 AM EST eCW1 (Critical access hospital) Outpatient Attender: Nicolasa PRIEST [facility] ce 08/22/2020 10:00:00 AM EDT [facility] ([facility] Outpatient Attender: Nicolasa PRIEST Monon Off ce 07/16/2020 10:00:00 AM EDT [facility] ([facility] Outpatient Attender: Nicolasa PRIEST [facility] ce 06/04/2020 01:30:00 PM EDT [facility] ([facility] TeleMedicine Phone E/M by Phys 11-20 Min [address] [place] [address] 05/28/2020 12:00:00 AM EDT eCW1 ([facility]) [facility] [address] [facility] [address] 05/09/2020 12:00:00 AM EDT eCW1 (Critical access hospital) [place] [address] [facility] [address] 05/03/2020 12:00:00 AM EDT eCW1 (Critical access hospital) [facility] [place] [address] [address] 05/01/2020 12:00:00 AM EDT eCW1 (Critical access hospital) [place] [address] [facility] [address] 04/11/2020 12:00:00 AM EDT eCW1 (Critical access hospital) [facility] [place] [address] [facility] [address] 02/08/2020 12:00:00 AM EDT eCW1 (Critical access hospital) [facility] [address] [address] 01/04/2020 12:00:00 AM EST eCW1 (Critical access hospital) Outpatient 11/19/2019 06:16:00 PM EST [facility] [address] [address] 11/03/2019 12:00:00 AM EST eCW1 (Critical access hospital) Medications Medication Brand Name Start Date Product Form Dose Route Admi nistrative Instructions Pharmacy Instructions Status Indications Reaction Description Data Source(s) Airborne Gummies 08/28/2020 12:00:00 AM EDT a ctive [facility] ([facility] 24 HR venlafaxine 75 MG Extended Release Oral Capsule Venlaf axine HCL ER 08/26/2020 12:00:00 AM EDT ORAL active [facility] ([facility] Albuterol 0.83 MG/ML Inhalant Solution Albuterol Sulfate 1 12:00:00 AM EDT active [facility] ([facility] Bevespi Aerosphere Bevespi Aerosphere 06/04/2020 12:00:00 AM EDT RESPIRATORY active [facility] ([facility] 200 ACTUAT Albuterol 0.09 MG/ACTUAT Metered Dose Inhaler [Pr oAir] Proair HFA 06/04/2020 12:00:00 AM EDT RESPIRATORY active [facility] ([facility] venlafaxine 75 MG Oral Tablet Venlafaxine HCL 06/04/2020 12:00:00 AM EDT ORAL completed [facility] ([facility] Insurance Providers Payer name Policy type / Coverage type Policy ID Covered constitution party ID Covered constitution party's relationship to dubose Policy Dubose Plan Information BCBS [place] PPO 302/307 [id number] SP [id number] [facility] [id number] SP [id number] [facility] [id number] SP [id number] [facility] [id number] SP [id number] [facility] [id number] S [id number] COUNT INCLUDES THE [facility] [id number] [facility] Health Maintenance Organization (O) [id number] Self [id number] [facility] Medicaid [id number] Self [id number] [facility] Commercial [id number] Self [id number] [facility] Health Maintenance Organization ([facility]) [id number] Self [id number] [facility] [place] [id number] Self [id number] ANSI-Not a Secondary Insurance [id number] ANSI-Commercial [id number] ANSI-Not a Secondary Insurance [id number] ANSI-Commercial [id number] [id number]-r95r-[id number]-[id number] ANSI-Not a Secondary Insurance [id number] ANSI-Commercial [id number]-[id number] [id number]-[id number] [facility] Health Maintenance Organization (HMO) [id number] Self [id number] [facility] [place] Medicaid [id number] Self [id number] ANSI-Not a Secondary Insurance [id number] ANSI-Commercial [id number]-[id number]-[id number] [id number]-[id number] ANSI-Not a Secondary Insurance [id number] ANSI-Commercial [id number]-35ka-[id number] [id number]-70bd-[id number] ANSI-Not a Secondary Insurance [id number]-[id number] ANSI-Commercial [id number]-[id number]-3660-0m37-[id number] [facility] Health Maintenance Organization (HMO) [id number] Self [id number] [facility] [place] Medicaid [id number] Self [id number] ANSI-Not a Secondary Insurance [id number]-[id number] ANSI-Commercial [id number] [id number]-[id number] ANSI-Commercial [id number]-[id number] [id number]-y278-9b94-3zp6-32wo90lz5983 ANSI-Not a Secondary Insurance [id number] [id number]-443t-5352-[id number] ANSI-Not a Secondary Insurance [id number] [id number] [id number]-5ei2-o576-418n4v0c9qx7 ANSI-Commercial 43vkq6k9-ye82-31u7-h747-057162ofw668 91vkg9g1-zp86-58j7-m582-179102rgo378 ANSI-Not a Secondary Insurance [id number]-t9a5-7578-3668-k2nf3 [id number] [id number]-o6v7-7428-7592-g8mm5m1wn045 ANSI-Commercial 1e50qinw-ec7l-73h3-[id number] 3s65ioxe-sk9f-57u5-[id number] ANSI-Not a Secondary Insurance sex91h0c-d809-90kf-p057-02cw7 n7934t9 ino90u1j-n768-39sd-i016-95is1b2971b3 ANSI-Commercial 1a18lr92-j460-77g2-juxu-9cbf894694mo 2n67gh37-k629-28x4-kmgi-9cfr202322rv ANSI-Commercial wo00r676-e524-1o35-w534-7k194i217u8n ix71k760-i355-4y04-w794-9x367p166c2l ANSI-Not a Secondary Insurance [id number]-11s7-3210-q278-393gz 284wc5t 3e42781t-82x3-4624-b496-517wc479kd1p ANSI-Commercial 3jr6p1c4-208j-7362-e02h-k86a743m5w20 2jm0w9y3-324f-2825-c39e-q99u596l0h27 ANSI-Not a Secondary Insurance [id number]-xfbw-66uu-30el-4r887 9c949py b814281z-ysog-54xm-36sb-1p5793e505pu ANSI-Commercial 7563vb74-oa8z-572h-k0p8-0147v13n5095 4908td19-mb9a-237s-u4w0-3249r72k9425 ANSI-Not a Secondary Insurance 6u8d7a58-321s-89jj-e0c1-wsr40 [id number] 7w8v2m97-264e-39xe-v1s9-naf793ij0481 ANSI-Not a Secondary Insurance [id number] s1ih644 0vg04424-3091-2c76-47x2-3597li2eh686 ANSI-Commercial 1s24o29h-082i-134t-48m1-110m4i18i3zn 0u99h49p-379c-211a-21h7-584q5a87t6he ANSI-Not a Secondary Insurance akimyob6-c46b-7o17k15m-9f58-260q-984a2 fefad66 jnsikfp0-e73p-4b63n58m-1j78-271f-511r1vzrsc02 ANSI-Commercial e50087l7-661y-882k-m0b8-i29fjqvbr963 w70176q5-530e-888s-p5v5-d92jwbvfi835 ANSI-Not a Secondary Insurance 68m2637d-6q2i-5809-r489-7l61i 6m227wy 22b6299d-6c7u-9764-q289-2g72s2l499hv ANSI-Commercial 82x3e162-5141-8690-f608-nr9u423m4st7 99j5d701-6900-1409-a888-js2q104l2ke1 ANSI-Commercial i9tf890q-7s93-45y1-5685-n6500o8f9158 g0dq426l-1j21-02k7-2530-b0714b4v5080 ANSI-Not a Secondary Insurance zy1za947-l2a9-167g-44v4-3br13 8t41j75 dj1ub770-l8b5-640j-76e6-2mc686e42k58 [facility] [id number] [facility] [id number] [facility] Health Maintenance Organization (HMO) [id number] Self [id number] [facility] [place] Medicaid [id number] Self [id number] ANSI-Commercial [id number]-[id number]-[id number] 2772cwa2-v057-03if-g805-233p0464964b ANSI-Not a Secondary Insurance j69s41c0-z808-9tt2-im31-98fl3 451262x s39b06q8-q820-9ie3-ut36-22ne0187683w ANSI-Commercial an621uh7-892f-[id number] ix236jz2-024w-2088-2x85-00y360542812 ANSI-Not a Secondary Insurance 70344869-p344-3z71-sx9c-j3b79 x07w3e5 33803278-o393-1j38-nd7v-m0g70l14v1b4 ANSI-Not a Secondary Insurance 7574b941-9948-1jbt-6588-h51xd 2u6532n 3912j653-6373-7utx-3514-f50zd1l6325e ANSI-Commercial v010fi4q-684r-6d28-fc0t-112oe1b3v417 q207oj8c-103w-6h41-wn2f-715fs7o8v766 ANSI-Not a Secondary Insurance h750a7e2-7z33-9r17-l578-201nz 962d2w0 a247j5s5-6a96-1j22-j782-168eh288c7e2 ANSI-Commercial 61c7vf4g-pi48-4nt3-lr33-5sz99x0r922t 89i0ih7a-gq09-4jl5-tg19-2gb09g8o560d ANSI-Commercial 2ihj759p-9c27-7o85-u98c-s1476e9k59i6 1dks881r-3r00-6v56-h12i-w1787m9d97h3 ANSI-Not a Secondary Insurance 692v85zj-109x-9458-q9h5-7km4a 91mir98 604x56kl-321x-5093-g0r3-3ox4o05iww10 ANSI-Not a Secondary Insurance c6n75408-wfy4-6dm9-3ob9-44v66 uu44958 g1z59650-icf5-4xd1-2yx7-13r51mv62128 ANSI-Commercial 52032058-1oh8-57g8-6512-d7279v91743g 69582791-1zz5-37e5-1697-n2337f00056a ANSI-Not a Secondary Insurance 8a8324g5-0219-144f-8739-09dqe z41p764 6j0174j0-1542-548o-3765-62blow78s258 ANSI-Commercial 08bq78xj-h44n-40l7-a58w-2790525179k9 68cf94ge-s74w-09g1-r53x-9178792959j1 ANSI-Commercial 25495ke7-18o5-7k43-9k0i-l78n56yu298t 15481rz8-47g8-0g36-8k5h-y28x01tz593i ANSI-Not a Secondary Insurance va4ic28u-ng06-0b80-02x8-9641q 7075iy2 np7bz77z-or31-4o51-95o3-7182s0878vr6 ANSI-Not a Secondary Insurance 16480d50-za36-42q5-9420-q43y1 4plwqq9 01216v05-jr65-37m4-9125-s96m08qknvz8 ANSI-Commercial r31o4158-5448-349v-aza6-30mp5o9pai79 i66z7920-2604-184z-iue2-60bs9n8ryw45 ANSI-Commercial 438mqtr4-435l-76h7-39pt-63768d9508b7 754jgml2-803u-92i4-36ij-07041m6231e9 ANSI-Not a Secondary Insurance q9s49qby-6208-6020-85nr-ye0q7 r01t76n i0k98ggd-6042-7579-83os-zt3u7d48y30q ANSI-Not a Secondary Insurance ud9w0o0j-75y2-0595-480z-y31zt 7503p62 fu1k4q1v-84r4-9703-417h-f52kc9893e96 ANSI-Commercial 9v6m4en2-v51v-2278-793x-0r053v39782q 6d5w6ra5-w69m-1263-950z-0f277l26067l ANSI-Commercial 02gdsymu-5388-16cx-05l5-89ft626be4y1 47klxetf-7353-19mq-09p8-74qy682gu0m3 ANSI-Not a Secondary Insurance 4p5n4p0m-xb53-90ii-6m07-4op69 [id number] 2d9a4p8y-mm34-71km-0o87-1va1509n3159 [facility] [id number] Self [id number] ANSI-Commercial cr7e0r45-y945-95qp-vm3l-kk7x39661x8v er4d6h09-m407-56vx-aq0f-xs9r20285x8r ANSI-Not a Secondary Insurance ipm4zz34-349x-16ze-e5o1-0r550 w1813j4 hrn3kj10-589i-13yu-r6k8-1o616v6654y6 ANSI-Commercial j01628n2-98g9-45p3-3lx0-4c9972346h15 x24905a0-41z1-80a2-9mn2-9f5706511e22 ANSI-Not a Secondary Insurance 99302x26-xt80-0826-6i1r-f2zfb j544us9 36486w56-mf91-7409-9z3n-m7qklb016pq7 ANSI-Commercial 487ad871-23td-45p9-f218-9stzk357lg75 419ap765-37id-90b4-f436-8tlqm962ba96 ANSI-Not a Secondary Insurance 0sj71u3q-qk26-417i-7nu5-t57sa 4722s81 6du83s9m-ez22-644x-9fa1-l52cf6884y34 ANSI-Commercial 21vh7c39-8824-6i57-k070-478ym109g5j0 14he1s93-0094-4a83-d687-694cu272r2b6 ANSI-Not a Secondary Insurance gp88m871-zyy2-71j7-k641-2e97h 0k47dj6 fj22e102-qgn7-85d4-g053-0e79s0m66xd4 ANSI-Commercial 4131tfl5-4519-2752-p251-6p7g625vjz6v 6998jxa2-3256-9720-l982-5j3w491ilh0e ANSI-Not a Secondary Insurance 7gpt4953-60r4-711u-7g63-kwq42 a2qvgj7 6uqq4340-42l3-887v-6w36-yvo40c1mjuw9 ANSI-Commercial e4i0a744-tx25-047d-n21h-g72987s424q2 l8s3x335-gs61-692a-w69x-v31535u122z0 ANSI-Not a Secondary Insurance 28i67779-j882-1978-k1l8-7422i 3i131x0 28i18994-j332-7558-x8e6-1442r1r284i9 ANSI-Not a Secondary Insurance 5okr4056-510m-203f-7y6d-l7i4s 45k731g 0sia4945-007v-546p-1a6y-y5f5w86h798l ANSI-Commercial c86834d9-i1a6-0g56-8hk0-7t45p9c02696 a59758s3-d4i2-8x58-8ba6-2h93a6b00361 ANSI-Commercial e44y5154-0333-0p3s-b5d5-64u33wwcd40h w05n6005-4863-0i2l-t8p8-10l32eydj81w ANSI-Not a Secondary Insurance 54mm17z3-a291-82b8-j829-5374x [id number] 81nq44g1-u914-56o0-q478-2939m23j5378 O UNAVAILABLE UNAVAILA BLE SELF PAY ONLY [id number] SP [id number] Self Pay P [id number] S [id number] SELF PAY ONLY UNAVAILABLE SP [facility] [id number] SP [id number] [facility] Commercial Self SELF PAY ONLY [id number] SP [id number] [facility] [id number] SP [id number] [employer] Health Maintenance Organization (HMO) MVP Premier Bronze Self MVP Premier Bronze [facility] Commercial Self Sliding Fee Scale P [id number] S [id number] [facility] Plan P [id number] S [id number] SELF PAY UNAVAILABLE SP UNAVAILA BLE [place] [id number] [place] [id number] Problems, Conditions, and Diagnoses Code Display Name Description Problem Type Effective Dates Data Source(s) R93.89 [id number] Endometrial thickening on ultrasound Prob yaz 10/07/2020 12:00:00 AM EST eCW1 ([facility]) F17.200 365853676 Tobacco use disorder Problem 09/06/2020 12:0 0:00 AM EDT eCW1 ([facility]) E66.01 452174577 Morbid obesity due to excess calories Pro blem 09/03/2020 12:00:00 AM EDT eCW1 ([facility]) N95.0 04051716 PMB (postmenopausal bleeding) Problem 2019 12:00:00 AM EDT eCW1 ([facility]) N93.9 [id number] Abnormal uterine bleeding (AUB) Problem 09/03/2020 12:00:00 AM EDT eCW1 ([facility]) 671366966 Polycythemia vera (clinical) Polycythemia vera (clinic al) Problem 08/22/2020 12:00:00 AM EDT [facility] ([facility] ) 543033309 Left kidney absent Left kidney absent Problem 06/2020 12:00:00 AM EDT [facility] ([facility] ) 786478742 History of malignant neoplasm of kidney History of malignant neoplasm of kidney Problem 06/05/2020 12:00:00 AM EDT [facility] ([facility] [id number] Anxiety state Anxiety state Problem 06/05/2020 12:00:00 AM EDT [facility] ([facility] 66060605 Chronic obstructive lung disease Chronic obstruc tive lung disease Problem 06/05/2020 12:00:00 AM EDT [facility] Results ID Date Data Source [id number] 07/10/2020 10:16:00 AM EDT [facility] ([facility] y [...] 23.0-116.3 mIU/mL</content>
<content></content> ID Date Data Source [id number] 07/10/2020 10:16:00 AM EDT [facility] ([facility] Name Value Range Interpretation Code Description Data Judith rce(s) Supporting Document(s) Thyroid Stimulating Hormone 1.040 uIU/ML 0.358-3.740 Norm al (applies to non- numeric results) [facility] ([facility] Free T4 1.04 ng/dL 0.76-1.46 Normal (applies to non-numeric resul ts) [facility] ([facility] ID Date Data Source [id number] 07/10/2020 10:16:00 AM EDT [facility] ([facility] Name Value Range Interpretation Code Description Data Judith rce(s) Supporting Document(s) Progesterone [Mass/volume] in Serum or Plasma 0.59 ng/mL Normal (applies to non-numeric results) [facility] ([facility]) <content>Normal Ranges (ng/ml)</content>
<content>Females :</content>
<content>FOLLICULAR PHASE 0.15- 1.40</content>
<content>LUTEAL PHASE 3.34-25.56</content>
<content>MID-LUTEAL PHASE 4.44- 28.03</content>
<content>POST MENOPAUSAL <0.73</content>
<content></content>
<content> Females :</content>
<content>1st TRIMESTER 11.22- 90.00</content>
<content>2nd TRIMESTER 25.55- 89.40</content>
<content>3rd TRIMESTER 48.40-422.50</content>
<content></content> ID Date Data Source [id number] 07/10/2020 10:16:00 AM EDT [facility] ([facility] Name Value Range Interpretation Code Description Data Judith rce(s) Supporting Document(s) Triglycerides Level 93 mg/dL Normal (applies to non-nume thomas results) [facility] ([facility] Cholesterol Level 201 mg/dL Above high normal [facility] ([facility] Non-HDL-C 150 mg/dL Normal (applies to non-numeric resul ts) [facility] ([facility] HDL Cholesterol 51 mg/dL Normal (applies to non-numeric results) [facility] ([facility] LDL Cholesterol 131 mg/dL Above high normal [facility] ([facility] Cholesterol Risk Ratio 3.941 Normal (applies to non-n umeric results) [facility] ([facility] ID Date Data Source [id number] 07/10/2020 10:16:00 AM EDT [facility] ([facility] Name Value Range Interpretation Code Description Data Judith e(s) Supporting Document(s) Creatinine For GFR 0.92 mg/dL [...] Little GFR Left</content>
<content>ESRD GFR <15 on CAMPAIGN MANAGEMENT SPECIALIST</content>
<content></content> Anion Gap 6 meq/L 8-16 Below [...] Ratio 1.0 1.2-2.2 Below low normal [facility] ([facility] ID Date Data Source [id number] 07/10/2020 10:16:00 AM EDT [facility] ([facility] Name Value Range Interpretation Code Description Data Judith rce(s) Supporting Document(s) White Blood Count 8.5 10 4.0-10.0 Normal (applies to non-numeri c results) [facility] ([facility] Hematocrit 61.5 % 36.0-47.0 Above high normal [facility] ([facility] Red Blood Count 6.60 10 4.00-5.40 Above high normal [facility] ([facility] Hemoglobin 19.5 g/dL 12.0-15.5 Above high normal [facility] ([facility] Mean Corpuscular HGB Conc 31.7 g/dL 32.0-36.5 Below low normal [facility] ([facility] Mean Corpuscular Volume 93.2 fl 80.0-96.0 Normal ( applies to non-numeric results) [facility] ([facility] ) Mean Corpuscular Hemoglobin 29.5 pg 27.0-33.0 Norm al (applies to non-numeric results) [facility] ([facility] ) Platelet Count, Automated 201 10 150-450 Normal (applies to non-numeric results) [facility] ([facility] ) Neutrophils % 66.9 % 36.0-66.0 Above high normal [facility] ([facility] Red Cell Distribution Width 14.7 % 11.5-14.5 Above high normal [facility] ([facility] Eos % 2.1 % 0.0-3.0 Normal (applies to non-numeric resul ts) [facility] ([facility] Baso % 0.7 % 0.0-1.0 Normal (applies to non-numeric resul ts) [facility] ([facility] [place] % 7.3 % 0.0-5.0 Above high normal [facility] ([facility] Lymph % 22.6 % [...] Normal (applies to n on-numeric results) [facility] ([facility] [place] # 0.6 10 0.0-0.8 Normal (applies to [...] [facility] ID Date Data Source [id number] 07/10/2020 09:40:00 AM EDT [facility] ([facility] Name Value [...] Ovulation</content>
<content>Induction: 400 - 800</content>
<content>Performed at: [facility]</content>
<content>[address], [place] [id number]</content>
<content>Electrical Calibrator: Ryan Bhatia MD, Phone: [phone]</content>
<content></content> ID Date Data Source [id number] 06/25/2020 03:32:00 PM EDT MEDDEBORAH ([facility] Name Value Range Interpretation Code Description Data Judith rce(s) Supporting Document(s) Pelvic US With Vaginal Probe Laboratory test result MEDDEBORAH ([facility] Procedure Social History Code Duration Value Status Description Data Source(s ) Smoking 10/07/2020 12:00:00 AM EST Current Smoker completed Curre nt Smoker eCW1 ([facility]) Smoking 05/28/2020 12:00:00 AM EDT Current Smoker completed Curre nt Smoker eCW1 ([facility]) Smoking 11/03/2019 12:00:00 AM EST Current Smoker completed Curre nt Smoker eCW1 ([facility]) Smoking 11/03/2019 12:00:00 AM EST Current Smoker completed Curre nt Smoker eCW1 ([facility]) Vital Signs ID Date Data Source UNK Name Value Range Interpretation Code Description Data Source(s) Oxygen saturation in Arterial blood by Pulse oximetry 92 % 92 % MEDDEBORAH ([facility] Body mass index (BMI) [Ratio] 43.6 kg/m2 43.6 k g/m2 MEDDEBORAH ([facility] Tully body weight 125 [lb_av] 125 [lb_av] MEDEN T ([facility] Body weight 262.00 [lb_av] 262.00 [lb_av] MEDEN T ([facility] Body height 65 [in_i] 65 [in_i] MEDDEBORAH ([facility] 5'5" Respiratory rate 18 /min 18 /min MEDDEBORAH ( [facility] Heart rate 100 /min 100 /min MEDDEBORAH ([facility] Body temperature 97.4 [degF] 97.4 [degF] MEDENT ([facility] Diastolic blood pressure 80 mm[Hg] 80 mm[Hg] MEDENT ([facility] Systolic blood pressure 108 mm[Hg] 108 mm[Hg] M EDENT ([facility] Oxygen saturation in Arterial blood by Pulse oximetry 92 % 92 % MEDENT ([facility] Body mass index (BMI) [Ratio] 43.4 kg/m2 43.4 k g/m2 MEDENT ([facility] Tully body weight 125 [lb_av] 125 [lb_av] MEDEN T ([facility] Body weight 261.00 [lb_av] 261.00 [lb_av] MEDEN T ([facility] Body height 65 [in_i] 65 [in_i] MEDENT ([facility] 5'5" Respiratory rate [...] weight 257.00 [lb_av] 257.00 [lb_av] MEDEN T ([facility] Body height 65 [in_i] 65 [in_i] MEDENT ([facility] 5'5" Respiratory rate 18 /min 18 /min MEDENT ( [facility] Heart rate 98 /min 98 /min MEDENT ([facility] Body temperature 97.8 [degF] 97.8 [degF] MEDENT ([facility] Diastolic blood pressure 60 mm[Hg] 60 mm[Hg] MEDENT ([facility] Systolic blood pressure 98 mm[Hg] 98 mm[Hg] M EDENT ([facility] Diastolic blood pressure mm[Hg] eCW1 ([facility]) Systolic blood pressure 118 mm[Hg] 118 mm[Hg] e CW1 ([facility]) Body temperature 97.9 [degF] 97.9 [degF] eCW1 ( [facility]) Respiratory rate 18 /min 18 /min eCW1 ([facility]) Heart rate 93 /min 93 /min eCW1 ([facility]) Body mass index (BMI) [Ratio] 44.97 kg/m2 44.97 kg/m2 eCW1 ([facility]) Body height 64 [in_us] 64 [in_us] eCW1 ([facility]) Body weight Measured 262 [lb_av] 262 [lb_av] eC W1 ([facility])
[2020-12-29 00:42] LABS: VENOUS BASE EXCESS 3.6 (-2.0-2.0); VENOUS HCO3 32.3 MEQ/L (23.0-27.0); VENOUS O2 SATURATION 96.5 % (60.0-80.0); VENOUS PARTIAL PRESSURE O2 77.7 mmHg (30.0-50.0); VENOUS PH 7.328 UNITS (7.330-7.430); VENOUS STANDARD HCO3 27.7 MEQ/L; VENOUS TOTAL CO2 34.3 MEQ/L (24.0-28.0)
[2020-12-29 00:45] LABS: BASO % 0.5 % (0.0-1.0); EOS # 0.1 10^3/uL (0.0-0.5); EOS % 1.1 % (0.0-3.0); HEMATOCRIT 59.2 % (36.0-47.0); HEMOGLOBIN 17.8 g/dl (12.0-15.5); LYMPH # 1.5 10^3/uL (1.5-5.0); LYMPH % 16.3 % (24.0-44.0); MEAN CORPUSCULAR HGB CONC 30.1 g/dl (32.0-36.5); MEAN CORPUSCULAR VOLUME 96.4 fl (80.0-96.0); MONO # 0.7 10^3/uL (0.0-0.8); MONO % 8.2 % (2.0-8.0); NEUTROPHILS # 6.5 10^3/uL (1.5-8.5); NEUTROPHILS % 73.6 % (36.0-66.0); PLATELET COUNT, AUTOMATED 157 10^3/uL (150-450); RED BLOOD COUNT 6.14 10^6/uL (4.00-5.40); WHITE BLOOD COUNT 8.9 10^3/uL (4.0-10.0)
[2020-12-29] MEDS ORDERED: cefTRIAXone SOD 2 GM in D5W MINI-BAG PLUS 50 ML IV ONE (00:45)
[2020-12-29] MEDS ORDERED: AZITHROMYCIN INJ 500 MG, VIAL MATE ADAPTER 1 EACH in D5W 250 ML IV ONE (00:45)
[2020-12-29 00:56] LABS: INR 0.91; PROTHROMBIN TIME 12.5 SECONDS (12.5-14.3)
[2020-12-29 00:59] LABS: D-DIMER QUANT 610.47 ng/ml (<500)
[2020-12-29 01:13] LABS: ALBUMIN 3.1 GM/DL (3.2-5.2); ALT/SGPT 15 U/L (12-78); BILIRUBIN,DIRECT < 0.1 MG/DL (0.0-0.2); BILIRUBIN,TOTAL 0.4 MG/DL (0.2-1.0); CK-MB VALUE MASS < 1.0 NG/ML (<3.6); CPK CREATINE PHOSPHOKINASE 58 U/L (26-192); MB/CK RELATIVE INDEX 1.72 (< OR =4); NT-PRO BNP 26 PG/ML (<125); TOTAL PROTEIN 6.4 GM/DL (6.4-8.2); TROPONIN I < 0.02 NG/ML (< 0.10)
[2020-12-29] MEDS ORDERED: LORazepam 0.5 MG TAB PO ONE (01:45)
[2020-12-29] MEDS ORDERED: ISOVUE-370 76% 100ML VIAL As Ordered ONE (02:16)
--- NOTE | 2020-12-29 02:43 | REPVR ---
PROCEDURE INFORMATION: Exam: CT Angiography Chest With Contrast Exam date and time: 12/29/2020 2:25 AM Age: 55 years old Clinical indication: Shortness of breath; Additional info: Sob/dec sao2 TECHNIQUE: Imaging protocol: Computed tomographic angiography of the chest with contrast. 3D rendering (Not supervised by radiologist): MIP and/or 3D reconstructed images were created by the technologist. Radiation optimization: All CT scans at this facility use at least one of these dose optimization techniques: automated exposure control; mA and/or kV adjustment per patient size (includes targeted exams where dose is matched to clinical indication); or iterative reconstruction. Contrast material: ISOVUE 370; Contrast volume: 75 ml; Contrast route: INTRAVENOUS (IV); COMPARISON: CT ANGIO CHEST 03/10/2014 6:58 PM FINDINGS: Pulmonary arteries: The main pulmonary artery measures 32 mm. No pulmonary embolism is identified. Aorta: The ascending thoracic aorta measures 27 mm. Lungs: Nodule in the posterior right upper lobe measuring 6 mm which is unchanged from 03/10/2014. Mild scattered fibro-atelectatic change and question of minimal infiltrates. Pleural spaces: Unremarkable. No pneumothorax. No pleural effusion. Heart: Unremarkable. No cardiomegaly. No pericardial effusion. Lymph nodes: Unremarkable. No enlarged lymph nodes. Gallbladder and bile ducts: Status post cholecystectomy. Adrenal glands: Slight fullness of the adrenals bilaterally consistent with hyperplasia. Bones/joints: Unremarkable. No acute fracture. Soft tissues: Unremarkable. IMPRESSION: 1. Mild scattered fibro-atelectatic change and question of minimal infiltrates. 2. Nodule in the posterior right upper lobe measuring 6 mm which is unchanged from 03/10/2014 and consistent with benign etiology. No follow-up is needed. 3. Otherwise negative CTA chest. No pulmonary embolism is identified. Electronically signed by: Augustine Riddle On 12/29/2020 02:43:17 AM
[2020-12-29] MEDS ORDERED: ATIV1TAB10 PO (03:59)
[2020-12-29] MEDS ORDERED: LEVALBUTEROL HFA 45MCG/ACT 15 GM INHALER INH PRN (04:15)
[2020-12-29] MEDS ORDERED: ACETAMINOPHEN TAB 650MG DOSE (2X325MG) PO PRN (04:45)
[2020-12-29] MEDS ORDERED: FLUTICASONE PROP 0.05% NASAL SPRAY 16 GM (FLONASE) NARES PRN (04:45)
--- NOTE | 2020-12-29 04:50 | HPEPDOC ---
General Date of Admission 12/29/2020 Date of Service: Dec 29, 2020 Chief Complaint The patient is a 55-year-old female admitted with a reason for visit of Diff Breathing. Source: Patient Exam Limitations: Other (depression) Associated Symptoms: Shortness of breath History of Present Illness Patient is a 55 yo female with PMH of COPD presented with dyspnea worsening for about a week. She reported her dyspnea worsens with laying down and alleviates with oxygen. She reported initially has no cough but after she receives medicati ons in the ER she started to have some yellow sputum production. While at home, she tried to use her inhalers, but it did not help with her dyspnea. She came tot he ED. While in the ED, she desaturated down to 70% at room air. She required 3L of oxygen to maintain her saturations. Otherwise denies fever, chills, chest pain, palpitation. She is a current smoker. Denies travel history or sick contact. She does not use oxygen at home, but she has an old oxygen concentrator. Home Medications Scheduled Glycopyrrolate/Formoterol Fum (Bevespi Aerosphere Inhaler) 10.7 Gm Hfa.aer.ad, 2 PUFF INH BID, (Reported) Venlafaxine HCl (Venlafaxine HCl ER) 75 Mg Capcr, 75 MG PO QHS, (Reported) Scheduled PRN Acetaminophen (Acetaminophen) 500 Mg Tab, 1,000 MG PO Q6H PRN for PAIN, (Reported) Albuterol Sulf (Albuterol Sulfate) 2.5 Mg/3 Ml Vial.neb, 1 VIAL NEB Q4H PRN for SOB/WHEEZING, (Reported) Albuterol Sulfate (Proair Hfa) 108 Mcg/Act Aer, 2 PUFFS INH Q4H PRN for SHORTNESS OF BREATH, (Reported) Fluticasone Propionate (Fluticasone Propionate) 50 Mcg/Act Spr, 2 SPRAY NARES DAILY PRN for ALLERGIES, (Reported) Guaifenesin (Mucinex) 1,200 Mg Tab.er.12h, 1 TAB PO BID PRN for CONGESTION, (Reported) Lorazepam (Ativan) 0.5 Mg Tablet, 0.5 MG PO DAILY PRN for ANXIETY/AGITATION, (Reported) Allergies Coded Allergies: TAPE (Verified Adverse Reaction, Unknown, band aids, 12/28/20) Past Medical History Medical History COPD Allergic rhinitis Depression Anxiety Vitamin D deficiency Tubular adenomaX3, hyperplastic polyp IBS-diarrhea predominant Hyperlipidemia 10cm left renal mass s/p radical left nephrectomy for RCC Multiple pulmonary nodules Polycythemia thought to be secondary to smoking-per heme/onco Declines ALAN evaluation Surgical History Cholecystectomy Colonoscopy Hemorrhoid banding Left radical nephrectomy Family History Father: at 65 yo. History of liver cirrhosis Mother: Decreased at 30 yo. Unknown Social History * Smoker: current smoker Alcohol: Denies Drugs: denies A-FIB/CHADSVASC A-FIB History Current/History of A-Fib/PAF?: No Review of Systems Constitutional: Denies: Chills, Fever Eyes: Reports: Other (constant watery eyes per patient. Denies rhinorrhea) ENT: Denies: Dysphagia, Sore Throat Skin: Denies: Rash Pulmonary: Reports: Dyspnea, Cough Cardiovascular: Denies: Chest Pain, Palpitations, Edema Gastrointestinal: Denies: Nausea, Vomiting, Abdominal Pain, Hematochezia Genitourinary: Reports: Other Symptoms (Chronic urinary urgency for years); Denies: Dysuria, Frequency Neurological: Denies: Weakness, Numbness Psych: Reports: Anxiety, Depression Physical Examination General Exam: Positive: Alert, Mild Distress Eye Exam: Negative: Sclera icteric ENT Exam: Positive: Mucous membr. moist/pink (mild accessory muscle use) Chest Exam: Positive: Diminished, Other; Negative: Rales, Rhonchi Heart Exam: Positive: Tachycardic Abdomen Exam: Positive: Normal bowel sounds, Soft, Other; Negative: Tenderness Extremity Exam: Negative: Cyanosis, Edema, Swelling Skin Exam: Positive: Nl turgor and temperature Neuro Exam: Positive: Normal Tone Psych Exam: Positive: Anxiety, Other (depressed); Negative: Mood NL Vital Signs Vital Signs Date Time Temp Pulse Resp B/P (MAP) Pulse Ox O2 Delivery O2 Flow Rate FiO2 12/29/20 03:46 101 19 94 Nasal Cannula 3.0 12/29/20 03:45 139/92 (108) 12/28/20 22:56 98.4 Laboratory Data Labs 24H Laboratory Tests 2 12/29/20 00:08: Immature Granulocyte % (Auto) 0.3, Neutrophils (%) (Auto) 73.6H, Lymphocytes (%) (Auto) 16.3L, Monocytes (%) (Auto) 8.2H, Eosinophils (%) (Auto) 1.1, Basophils (%) (Auto) 0.5, Neutrophils # (Auto) 6.5, Lymphocytes # (Auto) 1.5, Monocytes # (Auto) 0.7, Eosinophils # (Auto) 0.1, Basophils # (Auto) 0.0, Nucleated Red Blood Cells % (auto) 0.0, Prothrombin Time 12.5, Prothromb Time International Ratio 0.91, D-Dimer, Quantitative 610.47H, Blood Gas Bicarbonate Standard 27.7, Venous Blood pH 7.328L, Venous Blood Partial Pressure CO2 63.0H, Venous Blood Partial Pressure O2 77.7H, Venous Blood Total Carbon Dioxide 34.3H, Venous Blood HCO3 32.3H, Venous Blood Oxygen Saturation 96.5H, Venous Blood Base Excess 3.6H, Lactic Acid Level 1.4, Total Bilirubin 0.4, Direct Bilirubin < 0.1, Aspartate Amino Transf (AST/SGOT) 10, Alanine Aminotransferase (ALT/SGPT) 15, Alkaline Phosphatase 210H, Total Creatine Kinase 58, Creatine Kinase MB < 1.0, Creatine Kinase MB Relative Index 1.72, Troponin I < 0.02, [id number]-Type Natriuretic Peptide 26, Total Protein 6.4, Albumin 3.1L, Albumin/Globulin Ratio 0.9L CBC/BMP Laboratory Tests 12/29/20 00:08 Microbiology Microbiology 12/29/20 Respiratory Virus Panel (PCR) ([facility]) - Final, Complete 12/29/20 Blood Culture, Received Pending 12/29/20 Blood Culture, Received Pending Assessment/Plan 1. COPD exacerbation -S/p IV solumedrol. Start PO prednisone 40mg daily -Continuous pulse ox, oxygen therapy -Xopenex PRN, Home med Bevepsi not on formulary, orders placed to use own med and may discontinue formoterol when own med Bevepsi is brought in 2. Community acquired pneumonia - question of minimal infiltrates shown on CTA. Procalcitonin ordered. Blood cx pending -IV Ceftriaxone and Azithromycin -Oxygen therapy, continuous pulse ox 3. Depression/Anxiety -Continue home med 4. Erythrocytosis -Improved but still elevated -Most likely secondary to continued smoking 5. Tobacco use -Should not smoke if she is going to use oxygen DVT ppx: Lovenox Plan / VTE VTE Prophylaxis Ordered?: Yes GME ATTESTATION GME ATTESTATION My faculty preceptor for this patient encounter was physically present during the encounter and was fully available. All aspects of the patient interview, examination, medical decision making process, and medical care plan development were reviewed and approved by the faculty preceptor. The faculty preceptor is aware and concurs with the plan as stated in the body of this note and will attest to such by his/her cosignature. ATTENDING NOTE I, Wilian Hines DO, performed a history and physical examination of the patient and discussed her management with the resident, Oriana Gaytan DO. I reviewed the resident's note and agree with the documented findings and plan of care. ORIANA GAYTAN DO Dec 29, 2020 04:50 WILIAN HINES DO Dec 29, 2020 06:52
--- OUTSIDE RECORDS SUMMARY | 2020-12-29 05:05 | CCD ---
Author Author [facility] Organization [facility] Address Unknown Phone Unavailable Care Team Providers Care Chief Operations Officer Name Role Phone Barraclough, Nicolasa PA Unavailable [...] is protected by Article 27-F of the [facility] Public Health law. If you continue you may have access to information: Regarding HIV / AIDS; Provided by facilities licensed or operated by the [facility] Office of Mental Health; or Provided by the [facility] Office for People With Developmental Disabilities. If such information is present, then the following [facility] mandated warning applies: This information has [...] law may result in a fine or shelter sentence or both. A general authorization for the release of medical or other information is NOT sufficient authorization for further disc losure. Family History Family Member Name Family Member Gender Family Member Status Date o f Status Description Data Source(s) Unknown Unknown Problem [facility] ([facility], ) Encounters Encounter Providers Location Date Indications Data Source(s ) Unknown [address] [facility] [address] 10/15/2020 12:00:00 AM EST eCW1 (Critical access hospital) Outpatient Attender: Nicolasa PRIEST [place] [facility] ce 08/22/2020 10:00:00 AM EDT [facility] Outpatient Attender: Nicolasa PRIEST [place] Off ce 07/16/2020 10:00:00 AM EDT [facility] ([facility] Outpatient Attender: Nicolasa PRIEST [place] [facility] ce 06/04/2020 01:30:00 PM EDT [facility] ([facility] TeleMedicine Phone E/M by Phys 11-20 Min [address] [place] [address] 05/28/2020 12:00:00 AM EDT eCW1 ([facility]) [facility] [place] [address] [facility] [address] 05/09/2020 12:00:00 AM EDT eCW1 (Critical access hospital) [place] [address] [facility] [address] 05/03/2020 12:00:00 AM EDT eCW1 (Critical access hospital) [facility] [place] [address] [facility] [address] 05/01/2020 12:00:00 AM EDT eCW1 (Critical access hospital) [place] [address] [facility] [address] 04/11/2020 12:00:00 AM EDT eCW1 (Critical access hospital) [facility] [place] [address] [facility] [address] 02/08/2020 12:00:00 AM EDT eCW1 (Critical access hospital) [facility] [address] [facility] [address] 01/04/2020 12:00:00 AM EST eCW1 (Critical access hospital) Outpatient 11/19/2019 06:16:00 PM EST [facility] [place] [address] [facility] [address] 11/03/2019 12:00:00 AM EST eCW1 (Critical access hospital) Medications Medication Brand Name Start Date Product Form Dose Route Admi nistrative Instructions Pharmacy Instructions Status Indications Reaction Description Data Source(s) Airborne Gummies 08/28/2020 12:00:00 AM EDT a ctive [facility] ([facility] 24 HR venlafaxine 75 MG Extended Release Oral Capsule Venlaf axine HCL ER 08/26/2020 12:00:00 AM EDT ORAL active [facility] ([facility] Albuterol 0.83 MG/ML Inhalant Solution Albuterol Sulfate 1 12:00:00 AM EDT active MED[facility] ([facility] Bevespi Aerosphere Bevespi Aerosphere 06/04/2020 12:00:00 AM EDT RESPIRATORY active [facility] ([facility] 200 ACTUAT Albuterol 0.09 MG/ACTUAT Metered Dose Inhaler [Pr oAir] Proair HFA 06/04/2020 12:00:00 AM EDT RESPIRATORY active MED[facility] ([facility] venlafaxine 75 MG Oral Tablet Venlafaxine HCL 06/04/2020 12:00:00 AM EDT ORAL completed [facility] ([facility] Insurance Providers Payer name Policy type / Coverage type Policy ID Covered democrat ID Covered democrat's relationship to dubose Policy Dubose Plan Information [employer] [place] 302/307 [id number] SP [id number] [employer] [place] PPO 302/307 [id number] SP [id number] [facility] [id number] SP [id number] [facility] [id number] SP [id number] [facility] [id number] SP [id number] [facility] [id number] S [id number] [facility] [id number] [facility] Health Maintenance Organization (O) [id number] Self [id number] [facility] [place] Medicaid [id number] Self [id number] [facility] Commercial [id number] Self [id number] [facility] Maintenance Organization ([facility]) [id number] Self [id number] [facility] [place] Medicaid [id number] Self [id number] ANSI-Not a Secondary Insurance [id number] ANSI-Commercial [id number] ANSI-Not a Secondary Insurance [id number] ANSI-Commercial [id number]-[id number]-9xyb-[id number] ANSI-Not a Secondary Insurance [id number] ANSI-Commercial [id number]-[id number] [id number] [facility] Health Maintenance Organization (HMO) [id number] Self [id number] [facility] [place] Medicaid [id number] Self [id number] ANSI-Not a Secondary Insurance [id number] ANSI-Commercial [id number]-y4w8-[id number]-[id number] ANSI-Not a Secondary Insurance [id number] ANSI-Commercial [id number]-84lq-[id number] [id number]-86at-[id number] ANSI-Not a Secondary Insurance [id number] [id number]-[id number] ANSI-Commercial [id number]-[id number] [id number]-[id number] [facility] Health Maintenance Organization (HMO) [id number] Self [id number] [facility] [place] Medicaid [id number] Self [id number] ANSI-Not a Secondary Insurance [id number]-0dx3-[id number] ANSI-Commercial [id number] [id number]-[id number] ANSI-Commercial [id number]-[id number] ANSI-Not a Secondary Insurance [id number]-470m-2386-[id number] ANSI-Not a Secondary Insurance [id number]-7tx2-[id number] ANSI-Commercial 27oyy6x5-kv31-08m5-[id number] 46gct7l6-ut37-27l3-u845-530886cyz106 ANSI-Not a Secondary Insurance [id number]-[id number]-l5kg5 [id number] [id number]-[id number]-n1iw1n5uv974 ANSI-Commercial 6l91slmu-yo5u-99r0-[id number] 4s44tpvz-il3o-30q8-[id number] ANSI-Not a Secondary Insurance ovn29o7h-b065-57zb-w604-39eo3 [id number] ukl13g7v-p414-94yl-q338-60rs0a0911l3 ANSI-Commercial 1r56fj04-e133-77v7-odqg-6xkx255321ww 4h73js42-c400-09y1-zlkb-0wje177664vx ANSI-Commercial mo15n309-f822-0u97-n834-7l678j990i4w yo24g819-a665-9z24-f439-3l146o909n2j ANSI-Not a Secondary Insurance [id number]-v265-243mc 619na2s [id number]-52g2-6321-x444-129pq163ac7i ANSI-Commercial 7wq2b5w7-536y-8898-f32p-l09q097s7j67 0qq9x3l4-983t-5425-m87k-l22i928e0f51 ANSI-Not a Secondary Insurance a654155b-bpmm-03gb-88za-1e589 6c336wu t194238l-zbzq-66nc-32gr-7k6608l399ga ANSI-Commercial 1908br40-ia0a-411f-t1r6-1181x66h7883 7254ue61-rw5i-157v-v9g6-6576p31n8893 ANSI-Not a Secondary Insurance 0h4n4q29-438x-85sx-q5v5-wfn55 [id number] 1c7n8p26-310k-55tm-n0y1-hzn552pl4561 ANSI-Not a Secondary Insurance [id number]i b0mv840 2bt04104-4217-6l23-09z8-6630ge6et855 ANSI-Commercial 7d62w61r-620r-514j-48g2-212j3c44z9rl 3s50i19g-118x-763g-12l8-139t0e69d8tj ANSI-Not a Secondary Insurance bldyvkm2-l94w-3y36v83q-9x93-593i-508l6 fefad66 ewajtqg3-h48s-7o99o45w-5r26-722x-318v0clgzp04 ANSI-Commercial p03201t0-358q-979i-a7n3-c51laqddo524 v21433g9-994r-862k-w1b8-y12jbndgh548 ANSI-Not a Secondary Insurance 49w4595p-0g8n-2647-j227-8l31r 8e763lh 62e4329h-3i9g-1050-k846-5d66u1s618ie ANSI-Commercial 10y5o803-4863-6477-i569-lf6h668m2js0 92o5b949-1074-2867-m821-ke3z615f1la3 ANSI-Commercial a1wg703a-9e49-68h7-1827-n0936u9l1785 g6zo467d-0p12-50m5-3003-x7195m3f4913 ANSI-Not a Secondary Insurance db0le860-l6j9-165o-33q2-3nk74 0x12h84 rx3eo191-u0y1-155c-65r0-6ek071y61a15 [facility] [id number] [facility] [id number] [facility] Health Maintenance Organization (HMO) [id number] Self [id number] [facility] Medicaid [id number] Self [id number] ANSI-Commercial [id number]-[id number]-[id number] 5020nuf9-d771-34bt-t521-730s5866663h ANSI-Not a Secondary Insurance j38r46r0-x244-1yi0-hc97-78uh7 [id number] s38e47t9-q560-3fe4-pj98-57qu8316586p ANSI-Commercial bb634cz5-570z-[id number] ka183li6-034c-8193-0h63-77a225094046 ANSI-Not a Secondary Insurance 44786017-r390-1m91-ld4k-u9c55 x87r1d9 96095690-u266-0i50-yp1f-g6w50y05q3i2 ANSI-Not a Secondary Insurance 2293h554-0148-1vys-6144-s68xe 0i7619y 3379q396-2183-0ghh-4847-v66ui2a1030w ANSI-Commercial w738qx9t-825h-3c78-wc8w-653pd8m4m727 a201vm3i-267k-9a83-ux9q-048tu9l4m911 ANSI-Not a Secondary Insurance g529v5w8-5u47-2s91-v200-731lh 903d5r4 v363z5q0-8a48-7h35-e267-397ep203k2b2 ANSI-Commercial 17f5lo1a-nn82-1se7-vq81-0wh29l4j667n 67l0bt4d-ih97-3dt0-mq87-4hu00e9u798f ANSI-Commercial 1aqf432m-9h53-8c69-u38v-c4073v6f22f7 7rjt250n-1p02-4q15-o55d-k4293t6z95q2 ANSI-Not a Secondary Insurance 533w52fe-323c-3508-f9e4-8bb0q 18wxp29 370r45to-360g-9240-x8q1-2uo6a53tgh03 ANSI-Not a Secondary Insurance l4r26412-asi2-1yi9-5cb4-76s17 zz99897 c0h38721-vhl4-7is7-3gq0-16s38dn01213 ANSI-Commercial 22776521-1ws2-09o8-2829-x8468g51142m 00690083-6xr7-91s1-2477-d4276r42719s ANSI-Not a Secondary Insurance 4x4096x7-6707-842n-8221-30ojp i87a255 5f2266w3-2962-847w-8744-79xejw83f077 ANSI-Commercial 29to00cy-e63p-28m3-d61k-2375200326m6 75kp46dr-u89b-06w5-u12r-2423068113x8 ANSI-Commercial 80818yz6-83i7-4h29-3q6d-c80e09xr293l 85484rz9-63j0-0h81-8k5p-j74t97jn763n ANSI-Not a Secondary Insurance lz4do71w-ym37-8k31-46m5-4244b 3982ig1 ls8wy79c-za60-7o32-10d2-8027r1477zc8 ANSI-Not a Secondary Insurance 11651o14-qe93-17j3-4088-r51z3 6aulpp6 77213k33-vm81-28x8-2106-h90e39yreqo1 ANSI-Commercial s52s5185-6440-688d-anb6-23ms5n3nwb47 z48x1097-7685-066w-cgh1-67qw2j3hnx30 ANSI-Commercial 981mmlk0-403l-14p7-20qr-60257f1299s8 580rtvi4-922l-68t3-39su-97897k1520k9 ANSI-Not a Secondary Insurance a0d66gyz-8542-5573-90bm-iw1h4 o92q19l u7j08kpi-3716-8998-84zd-bp9x9t74o33z ANSI-Not a Secondary Insurance nb6y7r9u-30g3-9816-682t-k07fz 4092b72 ew6n0l1a-66l8-0450-368r-b87dt5204e81 ANSI-Commercial 4l7a9vg8-k78r-2508-897k-8k374g95025f 1c3h4ad9-x56p-2480-550s-9d622h88649w ANSI-Commercial 67nyfqak-4090-20ab-05x0-57rm519ox9d1 31agjtta-1619-45yc-02h4-41od442dj1n9 ANSI-Not a Secondary Insurance 4u7p6m4a-um63-96ea-5f59-8at41 48b1125 6j2c8c2l-kf62-36hk-5o26-0zd0137j4058 [facility] [id number] [facility] 7 [id number] ANSI-Commercial kx3t1p23-z417-97rk-xf6y-an1e18174v3h ur8w2b16-j884-26jx-wc8r-zk3u04237w6b ANSI-Not a Secondary Insurance hlq9ff63-529j-36di-d3u8-8q478 b2766g4 kmk8sj59-736k-12lv-f7p0-6o826r8109r7 ANSI-Commercial u53823j9-88r9-33z1-0nw9-0w8960803y48 p82397f5-46a1-69i9-5fx7-8m3351269y36 ANSI-Not a Secondary Insurance 07632a11-tg81-2525-2e3y-b3nxf g542bz7 03067o98-sg52-2953-6s9k-c0dysb625qk7 ANSI-Commercial 655ub709-39wp-80z2-j609-2ceax317by01 969nm081-59fo-28e4-h173-4oevk634fl73 ANSI-Not a Secondary Insurance 8bq49x9o-bt08-817r-0wy0-q17zv 2661c18 3vx57p7r-xi06-716w-7iy2-i19no5369w45 ANSI-Commercial 92do2u64-4934-0z18-b496-729ux173o5z6 92pg3w87-5062-6w20-y140-258ag802f8s2 ANSI-Not a Secondary Insurance nj24j781-nbk9-27j9-s649-1s41t 1s47td2 hi58b464-xwv1-78q0-l545-4p96c1n02fj6 ANSI-Commercial 7143vyo1-9521-2666-k410-6m9n917dgi8g 1233fln6-2884-6592-e377-4l3l211dwc9u ANSI-Not a Secondary Insurance 2vqg3605-87q1-366a-3x65-yaz41 n5giyv5 4eqe0063-57u3-946a-8t48-udy94k8tqif3 ANSI-Commercial m9d1d646-ye60-028n-c27r-o70576f402t5 h0y8e326-wq29-163b-a41h-r77799f671v9 ANSI-Not a Secondary Insurance 73c65555-q871-0305-k9t2-6353j 0i766o4 63a90132-d222-7394-n4l9-3319j9y642f2 ANSI-Not a Secondary Insurance 7mzl6944-398n-677j-1h5r-j2a7s 75g528a 5iyy9953-445l-728v-6s0x-e5r7r82b375i ANSI-Commercial o88291t0-l0o3-4c69-7cv5-4i94c9b82661 y89806t2-d7u1-8f60-0le0-7d89x8j01212 ANSI-Commercial d47e2822-3616-2d4e-f4j2-62x92ctrm06i f90v0969-6765-7y3i-l7i0-37m78xhdo38e ANSI-Not a Secondary Insurance 78cq92x5-u278-82v7-v883-8602h [id number] 77tt10h7-g408-36d9-p059-0909b06b3105 O UNAVAILABLE UNAVAILA BLE SELF PAY ONLY [id number] SP [id number] Self Pay P [id number] S [id number] SELF PAY ONLY UNAVAILABLE SP UNAV AILABLE [facility] [id number] SP [id number] [employer] Self SELF PAY ONLY [id number] SP [id number] [facility] [id number] SP [id number] [employer] Health Maintenance Organization (HMO) MVP Premier Bronze Self MVP Premier Bronze [place] [facility] Commercial Self Sliding Fee Scale P [id number] S [id number] [facility] Plan P [id number] S [id number] SELF PAY UNAVAILABLE SP UNAVAILA BLE WELLNESS CONNECTION [id number] SP [id number] Problems, Conditions, and Diagnoses Code Display Name Description Problem Type Effective Dates Data Source(s) R93.89 [id number] Endometrial thickening on ultrasound Prob yaz 10/07/2020 12:00:00 AM EST eCW1 ([facility]) F17.200 [id number] Tobacco use disorder Problem 09/06/2020 12:0 0:00 AM EDT eCW1 ([facility]) E66.01 182725413 Morbid obesity due to excess calories Pro blem 09/03/2020 12:00:00 AM EDT eCW1 ([facility]) N95.0 44325840 PMB (postmenopausal bleeding) Problem 2019 12:00:00 AM EDT eCW1 ([facility]) N93.9 [id number] Abnormal uterine bleeding (AUB) Problem 09/03/2020 12:00:00 AM EDT eCW1 ([facility]) 675869469 Polycythemia vera (clinical) Polycythemia vera (clinic al) Problem 08/22/2020 12:00:00 AM EDT [facility] ([facility] [id number] Left kidney absent Left kidney absent Problem 06/2020 12:00:00 AM EDT [facility] ([facility] ) 586916089 History of malignant neoplasm of kidney History of malignant neoplasm of kidney Problem 06/05/2020 12:00:00 AM EDT [facility] 400074866 Anxiety state Anxiety state Problem 06/05/2020 12:00:00 AM EDT [facility] ([facility] 86167769 Chronic obstructive lung disease Chronic obstruc tive lung disease Problem 06/05/2020 12:00:00 AM EDT [facility] ([facility] Results ID Date Data Source [id number] 07/10/2020 10:16:00 AM EDT [facility] ([facility] [...] 23.0-116.3 mIU/mL</content>
<content></content> ID Date Data Source [id number] 07/10/2020 10:16:00 AM EDT [facility] ([facility] Name Value Range Interpretation Code Description Data Judith rce(s) Supporting Document(s) Thyroid Stimulating Hormone 1.040 uIU/ML 0.358-3.740 Norm al (applies to non- numeric results) [facility] ([facility] Free T4 1.04 ng/dL 0.76-1.46 Normal (applies to non-numeric resul ts) [facility] ([facility] ID Date Data Source [id number] 07/10/2020 10:16:00 AM EDT [facility] ([facility] Name Value Range Interpretation Code Description Data Judith rce(s) Supporting Document(s) Progesterone [Mass/volume] in Serum or Plasma 0.59 ng/mL Normal (applies to non-numeric results) [facility] ([facility]) <content>Normal Ranges (ng/ml)</content>
<content>Females :</content>
<content>FOLLICULAR PHASE 0.15- 1.40</content>
<content>LUTEAL PHASE 3.34-25.56</content>
<content>MID-LUTEAL PHASE 4.44- 28.03</content>
<content>POST MENOPAUSAL <0.73</content>
<content></content>
<content> Females :</content>
<content>1st TRIMESTER 11.22- 90.00</content>
<content>2nd TRIMESTER 25.55- 89.40</content>
<content>3rd TRIMESTER 48.40-422.50</content>
<content></content> ID Date Data Source [id number] 07/10/2020 10:16:00 AM EDT [facility] ([facility] Name Value Range Interpretation Code Description Data Judith rce(s) Supporting Document(s) Triglycerides Level 93 mg/dL Normal (applies to non-nume thomas results) [facility] ([facility] Cholesterol Level 201 mg/dL Above high normal [facility] ([facility] Non-HDL-C 150 mg/dL Normal (applies to non-numeric resul ts) [facility] ([facility] HDL Cholesterol 51 mg/dL Normal (applies to non-numeric results) [facility] ([facility] LDL Cholesterol 131 mg/dL Above high normal [facility] ([facility] Cholesterol Risk Ratio 3.941 Normal (applies to non-n umeric results) [facility] ([facility] ID Date Data Source [id number] 07/10/2020 10:16:00 AM EDT [facility] ([facility] Name Value Range [...] Normal (applies to non- numeric results) [facility] ([facility] ) <content>Units are mL/min/1.73 m2</content>
<content></content>
<content>Chronic Kidney Disease Staging per NKF:</content>
<content></content>
<content>Stage I & II GFR >=60 Normal to Mildly Decreased</content>
<content>Stage III GFR 30- 59 Moderately Decreased</content>
<content>Stage IV GFR 15-29 Severely Decreased</content>
<content>Stage V GFR <15 Very Little GFR Left</content>
<content>ESRD GFR <15 on FINANCIAL CENTER MANAGER</content>
<content></content> Anion Gap 6 meq/L 8-16 Below low normal [facility] ( [facility] Chloride Level 106 meq/L [...] Normal (applies to non-numeric resul ts) [facility] ([facility] Albumin/Globulin Ratio 1.0 1.2-2.2 Below low normal [facility] ([facility] ID Date Data Source [id number] 07/10/2020 10:16:00 AM EDT [facility] ([facility] Name Value Range Interpretation Code Description Data Judith rce(s) Supporting Document(s) White Blood Count 8.5 10 4.0-10.0 Normal (applies to non-numeri c results) [facility] ([facility] Hematocrit 61.5 % 36.0-47.0 Above high normal [facility] ([facility] Red Blood Count 6.60 10 4.00-5.40 Above high normal [facility] ([facility] Hemoglobin 19.5 g/dL 12.0-15.5 Above high normal [facility] ([facility] Mean Corpuscular HGB Conc 31.7 g/dL 32.0-36.5 Below low normal [facility] ([facility] Mean Corpuscular Volume 93.2 fl 80.0-96.0 Normal ( applies to non-numeric results) [facility] ([facility] Mean Corpuscular Hemoglobin 29.5 pg 27.0-33.0 Norm al (applies to non-numeric results) [facility] ([facility] Platelet Count, Automated 201 10 150-450 Normal (applies to non-numeric results) [facility] ([facility] ) Neutrophils % 66.9 % 36.0-66.0 Above high normal [facility] ([facility] Red Cell Distribution Width 14.7 % 11.5-14.5 Above high normal [facility]ENT ([facility] Eos % 2.1 % 0.0-3.0 Normal (applies to non-numeric resul ts) [facility] ([facility] Baso % 0.7 % 0.0-1.0 Normal (applies to non-numeric resul ts) [facility] ([facility] [place] % 7.3 % 0.0-5.0 Above high normal [...] on-numeric results) MEDENT ([facility] [place] # 0.6 10 0.0-0.8 Normal (applies to [...] [facility] ID Date Data Source [id number] 07/10/2020 09:40:00 AM EDT [facility] ([facility] Ovulation</content>
<content>Induction: 400 - 800</content>
<content>Performed at: [facility] [place]</content>
<content>[address], [place] [id number]</content>
<content>Inclusion Paraeducator: Ryan Bhatia MD, Phone: [phone]</content>
<content></content> ID Date Data Source [id number] 06/25/2020 03:32:00 PM EDT ROCÍO ([facility] Name Value Range Interpretation Code Description Data Judith rce(s) Supporting Document(s) Pelvic US With Vaginal Probe Laboratory test result ROCÍO ([facility] Procedure Social History Code Duration Value Status Description Data Source(s ) Smoking 10/07/2020 12:00:00 AM EST Current Smoker completed Curre nt Smoker eCW1 ([facility]) Smoking 05/28/2020 12:00:00 AM EDT Current Smoker completed Curre nt Smoker eCW1 ([facility]) Smoking 11/03/2019 12:00:00 AM EST Current Smoker completed Curre nt Smoker eCW1 ([facility]) Smoking 11/03/2019 12:00:00 AM EST Current Smoker completed Curre nt Smoker eCW1 ([facility]) Vital Signs ID Date Data Source UNK Name Value Range Interpretation Code Description Data Source(s) Oxygen saturation in Arterial blood by Pulse oximetry 92 % 92 % ROC[facility]O ([facility] Body mass index (BMI) [Ratio] 43.6 kg/m2 43.6 k g/m2 MEDDEBORAH ([facility] [place] body weight 125 [lb_av] 125 [lb_av] MEDEN T ([facility] Body weight 262.00 [lb_av] 262.00 [lb_av] MEDEN T ([facility] Body height 65 [in_i] 65 [in_i] ROCÍO ([facility] 5'5" Respiratory rate 18 /min 18 /min ROCÍO ( [facility] Heart rate 100 /min 100 /min MEDENT ([facility] Body temperature 97.4 [...] k g/m2 MEDENT ([facility] [place] body weight 125 [lb_av] 125 [lb_av] MEDEN T ([facility] Body weight 261.00 [lb_av] 261.00 [lb_av] MEDEN T ([facility] Body height 65 [in_i] 65 [in_i] MEDENT ([facility] 5'5" Respiratory rate [...] Body height 65 [in_i] 65 [in_i] MEDENT [facility] 5'5" Respiratory rate 18 /min 18 /min MEDENT ( [facility] Heart rate 98 /min 98 /min MEDENT ([facility] Body temperature 97.8 [degF] 97.8 [degF] MEDENT ([facility] Diastolic blood pressure 60 mm[Hg] 60 mm[Hg] MEDENT ([facility] Systolic blood pressure 98 mm[Hg] 98 mm[Hg] M EDENT ([facility] Diastolic blood pressure mm[Hg] eCW1 ([facility]) Systolic blood pressure 118 mm[Hg] 118 mm[Hg] e CW1 ([facility]) Body temperature 97.9 [degF] 97.9 [degF] eCW1 ( [facility]) Respiratory rate 18 /min 18 /min eCW1 ([facility]) Heart rate 93 /min 93 /min eCW1 ([facility]) Body mass index (BMI) [Ratio] 44.97 kg/m2 44.97 kg/m2 eCW1 ([facility] [facility]) Body height 64 [in_us] 64 [in_us] eCW1 ([facility]) Body weight Measured 262 [lb_av] 262 [lb_av] eC W1 ([facility])
[2020-12-29 05:20] VITALS: BP 126/85
[2020-12-29 07:12] LABS: CK-MB VALUE MASS 1.4 NG/ML (<3.6); CPK CREATINE PHOSPHOKINASE 55 U/L (26-192); MB/CK RELATIVE INDEX 2.55 (< OR =4); TROPONIN I < 0.02 NG/ML (< 0.10)
[2020-12-29 07:17] VITALS: O2SAT 88
[2020-12-29] MEDS ORDERED: FORMOTEROL FUMARATE 20 MCG/2 ML INHALATION SOLUTION (PERFOROMIST) INH SCH (08:00)
[2020-12-29] MEDS ORDERED: GLYCOPYRROLATE INJ 0.2 MG/ML 2 ML VIAL NEB SCH (08:00)
[2020-12-29] MEDS: ENOXAPARIN 40MG/0.4ML SYRINGE (J1650 PER 10MG) SC SCH (08:44)
[2020-12-29] MEDS ORDERED: [UNRECOGNIZED DRUG - OTHER] INH SCH (09:00)
[2020-12-29] MEDS ORDERED: NICOTINE 21MG/24HR 1 EA TRANSDERMAL TD SCH (09:00)
--- NOTE | 2020-12-29 11:06 | IPNPDOC ---
Text Note Date of Service The patient was seen on 12/29/20. NOTE Subjective: Patient stated that she feels better today. She requires 3 L of o xygen when she rest. Objective: GENERAL APPEARANCE: NAD HEENT: no scleral icterus, no JVD, EOMI CARDIOVASCULAR: S1S2 LUNGS: Diminished lung sounds bilaterally ABDOMEN: soft & not tender w palpitation MUSCULOSKELETAL: no cyanosis, no swelling INTEGUMENT: no generalized pallor NEUROLOGICAL: cranial nerve function from 2-12 intact intact, follows commands, speech not dysarthric Assessment and plan Patient is 55 years old female with past medical history of COPD, anxiety, depression, who is active smoker presented to the hospital with COPD exacerbation COPD exacerbation Continue by mouth prednisone Azithromycin by mouth Continue inhalers Depression/Anxiety Continue home meds Erythrocytosis Most likely secondary to active smoking Tobacco use I had long discussion about smoking. Counseled Hyperlipidemia I started atorvastatin Obstructive sleep apnea Patient stated that she snores and has apnea. Sleep study in the outpatient settings VS,Avelina, I+O VS, Avelina, I+O Laboratory Tests 12/29/20 00:08 Vital Signs Date Time Temp Pulse Resp B/P (MAP) Pulse Ox O2 Delivery O2 Flow Rate FiO2 12/29/20 09:00 3.0 12/29/20 07:17 88 Nasal Cannula 12/29/20 05:20 98.5 99 20 126/85 (99) I&O- Last 24 Hours up to 6 AM 12/29/20 06:00 Intake Total 1305 ml Output Total 0 ml Balance 1305 ml PASQUALE RODRIGUEZ DO Dec 29, 2020 11:06
[2020-12-29] MEDS: ADVAIR HFA 230/21MCG INHALER INH SCH ×2 (11:20→19:46)
[2020-12-29] MEDS: IPRATROPIUM 0.5MG/ALBUTEROL 2.5MG INH SOL UD 3ML (DUONEB) NEB SCH ×3 (11:21→19:46)
[2020-12-29] MEDS ORDERED: ATORVASTATIN 20 MG TAB PO ONE (12:00)
[2020-12-29] MEDS: predniSONE 20 MG TAB PO SCH (12:34)
[2020-12-29] MEDS: NICOTINE 14 MG/24 HR TRANSDERMAL TD SCH (13:51)
[2020-12-29 14:00] VITALS: BP 114/64
[2020-12-29] MEDS: LORazepam 0.5 MG TAB PO PRN (16:08)
[2020-12-29 20:25] VITALS: O2SAT 91
--- NOTE | 2020-12-29 20:48 | ECGEPIP ---
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
[2020-12-29] MEDS ORDERED: VENLAFAXINE **XR** 75MG CAPSULE PO SCH (21:00)
[2020-12-29] MEDS ORDERED: AZITHROMYCIN 250MG TABLET PO SCH (21:00)
[2020-12-29 21:20] VITALS: O2SAT 92
[2020-12-29 22:00] VITALS: BP 126/73
[2020-12-30] MEDS: IPRATROPIUM 0.5MG/ALBUTEROL 2.5MG INH SOL UD 3ML (DUONEB) NEB SCH ×4 (00:10→11:23)
[2020-12-30] MEDS ORDERED: cefTRIAXone SOD 1GM VIAL (J0696 PER 250MG) IM SCH (01:00)
[2020-12-30] MEDS ORDERED: AZITHROMYCIN INJ 500 MG, VIAL MATE ADAPTER 1 EACH in D5W 250 ML IV SCH (02:00)
[2020-12-30 06:00] VITALS: BP 149/88
[2020-12-30 06:18] LABS: HEMATOCRIT 59.7 % (36.0-47.0); HEMOGLOBIN 18.2 g/dl (12.0-15.5); MEAN CORPUSCULAR HEMOGLOBIN 29.5 pg (27.0-33.0); MEAN CORPUSCULAR HGB CONC 30.5 g/dl (32.0-36.5); MEAN CORPUSCULAR VOLUME 96.8 fl (80.0-96.0); PLATELET COUNT, AUTOMATED 167 10^3/uL (150-450); RED BLOOD COUNT 6.17 10^6/uL (4.00-5.40); WHITE BLOOD COUNT 13.5 10^3/uL (4.0-10.0)
[2020-12-30 06:38] LABS: BLOOD UREA NITROGEN 12 MG/DL (7-18); CALCIUM LEVEL 9.4 MG/DL (8.5-10.1); CARBON DIOXIDE LEVEL 37 MEQ/L (21-32); CHLORIDE LEVEL 102 MEQ/L (98-107); CREATININE FOR GFR 0.68 MG/DL (0.55-1.30); GLOMERULAR FILTRATION RATE > 60.0 (>51); GLUCOSE, FASTING 97 MG/DL (70-100); POTASSIUM SERUM 4.1 MEQ/L (3.5-5.1); SODIUM LEVEL 143 MEQ/L (136-145)
[2020-12-30] MEDS: ADVAIR HFA 230/21MCG INHALER INH SCH (07:33)
[2020-12-30] MEDS: LORazepam 0.5 MG TAB PO PRN (08:18)
[2020-12-30] MEDS: NICOTINE 14 MG/24 HR TRANSDERMAL TD SCH (08:18)
[2020-12-30] MEDS: ENOXAPARIN 40MG/0.4ML SYRINGE (J1650 PER 10MG) SC SCH (08:19)
[2020-12-30] MEDS ORDERED: ATORVASTATIN 20 MG TAB PO SCH (09:00)
[2020-12-30] MEDS ORDERED: PRED5PAK PO (09:49)
[2020-12-30] MEDS ORDERED: AZIT-12 PO (09:49)
[2020-12-30] MEDS ORDERED: TIOT18INH INH (09:49)
[2020-12-30] MEDS ORDERED: ADVA230A INH (09:49)
--- NOTE | 2020-12-30 12:13 | DS.PDOC ---
Discharge Summary General Date of Admission Dec 28, 2020 at 22:55 Date of Discharge 12/30/20 Discharge Summary PROCEDURES PERFORMED DURING STAY: [None]. ADMITTING DIAGNOSES: COPD exacerbation Depression/Anxiety Erythrocytosis Tobacco use disorder Hyperlipidemia Obstructive sleep apnea DISCHARGE DIAGNOSES: COPD exacerbation Depression/Anxiety Erythrocytosis Tobacco use disorder Hyperlipidemia Obstructive sleep apnea COMPLICATIONS/CHIEF COMPLAINT: Copd Pneumonia. HISTORY OF PRESENT ILLNESS: Patient is 55 years old female with past medical history of COPD, anxiety, depression, who is active smoker presented to the hospital with COPD exacerbation HOSPITAL COURSE: During hospital stay following issue addressed COPD exacerbation Continue by mouth prednisone Azithromycin by mouth Continue inhalers Depression/Anxiety Continue home meds Erythrocytosis Most likely secondary to active smoking Tobacco use I had long discussion about smoking. Counseled Hyperlipidemia I started atorvastatin Obstructive sleep apnea Patient stated that she snores and has apnea. Sleep study in the outpatient settings DISCHARGE MEDICATIONS: Please see below. ALLERGIES: Please see below. PHYSICAL EXAMINATION ON DISCHARGE: VITAL SIGNS: Please see below. GENERAL APPEARANCE: NAD HEENT: no scleral icterus, no JVD, EOMI CARDIOVASCULAR: S1S2 LUNGS: Diminished lung sounds bilaterally ABDOMEN: soft & not tender w palpitation MUSCULOSKELETAL: no cyanosis, no swelling INTEGUMENT: no generalized pallor NEUROLOGICAL: cranial nerve function from 2-12 intact intact, follows commands, speech not dysarthric LABORATORY DATA: Please see below. IMAGING: [facility] NAME: GABO CHIN DATE OF : 1965 BUSINESS NUMBER: [id number] AGE: 55 SEX: F REPORT #: [id number] ROOM: ED TECHNOLOGIST: [facility] DOCTOR: MARLENI MADERA PA-C Ordered for Date&Time: 12/29/20144 cc: [~ rep ct ivnm] Service Date&Time: 12/29/20224 This report is in Signed status. Interpretation performed by [facility]. Thank you for having your radiology procedures performed at [facility] RADIOLOGY REPORT Date&Time printed: [~ rep prt dt last] [~ rep prt tm last] Page 2 of [address] [address] RADIOLOGY REPORT This report is in Signed status. Interpretation performed by [facility]. Thank you for having your radiology procedures performed at [facility] RADIOLOGY REPORT Date&Time printed: [~ rep prt dt last] [~ rep prt tm last] Page 1 of 2 EXAMINATION REQUESTED: CT ANGIO CHEST REASON FOR PATIENT VISIT: DIFF BREATHING REASON FOR EXAMINATION: sob/dec sao2 PROCEDURE INFORMATION: Exam: CT Angiography Chest With Contrast Exam date and time: 12/29/2020 2:25 AM Age: 55 years old Clinical indication: Shortness of breath; Additional info: Sob/dec sao2 TECHNIQUE: Imaging protocol: Computed tomographic angiography of the chest with contrast. 3D rendering (Not supervised by radiologist): MIP and/or 3D reconstructed images were created by the technologist. Radiation optimization: All CT scans at this facility use at least one of these dose optimization techniques: automated exposure control; mA and/or kV adjustment per patient size (includes targeted exams where dose is matched to clinical indication); or iterative reconstruction. Contrast material: ISOVUE 370; Contrast volume: 75 ml; Contrast route: INTRAVENOUS (IV); COMPARISON: CT ANGIO CHEST 03/10/2014 6:58 PM FINDINGS: Pulmonary arteries: The main pulmonary artery measures 32 mm. No pulmonary embolism is identified. Aorta: The ascending thoracic aorta measures 27 mm. Lungs: Nodule in the posterior right upper lobe measuring 6 mm which is unchanged from 03/10/2014. Mild scattered fibro-atelectatic change and question of minimal infiltrates. Pleural spaces: Unremarkable. No pneumothorax. No pleural effusion. Heart: Unremarkable. No cardiomegaly. No pericardial effusion. Lymph nodes: Unremarkable. No enlarged lymph nodes. Gallbladder and bile ducts: Status post cholecystectomy. Adrenal glands: Slight fullness of the adrenals bilaterally consistent with hyperplasia. Bones/joints: Unremarkable. No acute fracture. Soft tissues: Unremarkable. IMPRESSION: 1. Mild scattered fibro-atelectatic change and question of minimal infiltrates. 2. Nodule in the posterior right upper lobe measuring 6 mm which is unchanged from 03/10/2014 and consistent with benign etiology. No follow-up is needed. 3. Otherwise negative CTA chest. No pulmonary embolism is identified. Electronically signed by: Yo Riddle On 12/29/2020 02:43:17 AM DD: YO RIDDLE MD 12/29/205 DT: WANDER 12/29/20242 DS: IRINA 12/29/20242 [~ rep ct labl] PROGNOSIS: Fair ACTIVITY: [As tolerated]. 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 TIME SPENT ON DISCHARGE: 35 minutes. Vital Signs/I&Os Vital Signs Date Time Temp Pulse Resp B/P (MAP) Pulse Ox O2 Delivery O2 Flow Rate FiO2 12/30/20 08:30 3.0 12/30/20 07:35 Nasal Cannula 12/30/20 06:00 97.9 87 18 149/88 (108) 92 I&O- Last 24 Hours up to 6 AM 12/30/20 06:00 Intake Total 625 ml Output Total 2100 ml Balance -1475 ml Laboratory Data Labs 24H Laboratory Tests 2 12/30/20 05:30: Nucleated Red Blood Cells % (auto) 0.0, Anion Gap 4L, Glomerular Filtration Rate > 60.0, Calcium Level 9.4 CBC/BMP Laboratory Tests 12/30/20 05:30 Microbiology Microbiology 12/29/20 Respiratory Virus Panel (PCR) ([facility]) - Final, Complete 12/29/20 Blood Culture - Preliminary, Resulted No growth after 24 hours . All specim... 12/29/20 Blood Culture - Preliminary, Resulted No growth after 24 hours . All specim... Discharge Medications Scheduled Azithromycin (Azithromycin) 250 Mg Tablet, 500 MG PO DAILY@2100 Fluticasone Propion/Salmeterol (Advair Hfa 230-21 Mcg Inhaler) 12 Gm Hfa.aer.ad, 2 PUFF INH BID Glycopyrrolate/Formoterol Fum (Bevespi Aerosphere Inhaler) 10.7 Gm Hfa.aer.ad, 2 PUFF INH BID, (Reported) Prednisone (Prednisone) 5 Mg Tab.ds.pk, 0 PO ASDIRECTED 6 day dose pack taper Tiotropium Brooks Monohydrate (Spiriva) 18 Mcg Cap.w.dev, 18 MCG INH DAILY Venlafaxine HCl (Venlafaxine HCl ER) 75 Mg Capcr, 75 MG PO QHS, (Reported) Scheduled PRN Acetaminophen (Acetaminophen) 500 Mg Tab, 1,000 MG PO Q6H PRN for PAIN, (Reported) Albuterol Sulf (Albuterol Sulfate) 2.5 Mg/3 Ml Vial.neb, 1 VIAL NEB Q4H PRN for SOB/WHEEZING, (Reported) Albuterol Sulfate (Proair Hfa) 108 Mcg/Act Aer, 2 PUFFS INH Q4H PRN for SHORTNESS OF BREATH, (Reported) Fluticasone Propionate (Fluticasone Propionate) 50 Mcg/Act Spr, 2 SPRAY NARES DAILY PRN for ALLERGIES, (Reported) Guaifenesin (Mucinex) 1,200 Mg Tab.er.12h, 1 TAB PO BID PRN for CONGESTION, (R eported) Lorazepam (Ativan) 0.5 Mg Tablet, 0.5 MG PO DAILY PRN for ANXIETY/AGITATION, (Reported) Allergies Coded Allergies: TAPE (Verified Adverse Reaction, Unknown, band aids, 12/28/20) PASQUALE RODRIGUEZ DO Dec 30, 2020 12:13
[2020-12-30] MEDS: predniSONE 20 MG TAB PO SCH (12:52)
== END 2020-12-30 13:19 | disposition home or self-care (01) ==
LOC: M ED 22:54 → M ED INP 22:55 → M MSPAV 12-29 05:22
PROVIDERS: ADMIT Internal Medicine; ATTEND Internal Medicine
DX: J44.1 Chronic obstructive pulmonary disease with (acute) exacerbation (principal); F41.9 Anxiety disorder, unspecified; F32.9 Major depressive disorder, single episode, unspecified; D75.0 Familial erythrocytosis; F17.218 Nicotine dependence, cigarettes, with other nicotine-induced disorders; E78.49 Other hyperlipidemia; G47.33 Obstructive sleep apnea (adult) (pediatric); Z79.52 Long term (current) use of systemic steroids; Z79.899 Other long term (current) drug therapy
CPT/HCPCS: 36415; 71045; 71275; 80047; 80048; 80076; 82550; 82553; 82803; 83605; 83880; 84145; 85025; 85027; 85379; 85610; 87040; 87798; 93005; 94640; 96361; 96365; 96367; 96372; 96375; 99285; J0456; J0696; J1650; J2930; J7606; Q9967

== ENCOUNTER 2021-02-13 16:34 | Outpatient (CLI) | payer BC, OTHER ==
[~2021-02-13] VITALS: Ht 152.4 cm; Wt 118.6 kg
[~2021-02-13 16:34] MED LIST changes: +ALBU83IN NEB; +ATIV1TAB10 PO; +AZIT-12 PO; +CHAN1PAK13 PO; +MUCI1TAB16 PO; +PRED5PAK PO
[2021-02-13 16:45] VITALS: BP 134/78
[2021-02-13 16:55] VITALS: BP 125/77
== END 2021-02-13 17:00 | disposition home or self-care (01) ==
LOC: M INFU 16:34
PROVIDERS: ATTEND Specialist
DX: D45 Polycythemia vera (principal); Z91.048 Other nonmedicinal substance allergy status

== ENCOUNTER → 2021-03-31 | Outpatient (REF) | payer BC | LOC: M SFHCWAGY 12:58 | PROVIDERS: ATTEND Nurse Practitioner Women's Health | DX: N93.9 Abnormal uterine and vaginal bleeding, unspecified (principal); N95.0 Postmenopausal bleeding ==

== ENCOUNTER → 2021-06-17 | Outpatient (CLI) | payer BC ==
[~2021-06-17] MED LIST changes: +DULO1CAP6 PO; +ISOVUE-370 76% 100ML VIAL As Ordered ONE; +OMEP40CA4 PO; -OMEP40CA97 PO; +ZOLO100T PO
== END ==
LOC: M RAD 10:46
PROVIDERS: ATTEND Nurse Practitioner Family
DX: C64.2 Malignant neoplasm of left kidney, except renal pelvis (principal); Z90.5 Acquired absence of kidney; K57.30 Diverticulosis of large intestine without perforation or abscess without bleeding; K42.9 Umbilical hernia without obstruction or gangrene; J98.11 Atelectasis
CPT/HCPCS: 74170; Q9967

== ENCOUNTER → 2021-06-17 | Outpatient (REF) | payer BC ==
[~2021-06-17] MED LIST changes: -ISOVUE-370 76% 100ML VIAL As Ordered ONE
[2021-06-17 20:44] LABS: FREE T4 0.9 NG/DL (0.76-1.46); MAGNESIUM LEVEL 1.9 MG/DL (1.8-2.4); THYROID STIMULATING HORMONE 0.988 uIU/ML (0.358-3.740)
[2021-06-17 20:46] LABS: CORTISOL BASELINE 22.1 UG/DL (4.3-22.4)
== END ==
LOC: M LAB REF 17:07
PROVIDERS: ATTEND Internal Medicine Nephrology
DX: Z85.528 Personal history of other malignant neoplasm of kidney (principal); N18.2 Chronic kidney disease, stage 2 (mild)

== ENCOUNTER → 2021-07-12 | Outpatient (CLI) | payer BC ==
[~2021-07-12] MED LIST changes: -DULO1CAP6 PO
--- NOTE | 2021-07-13 21:25 | REPVR ---
PROCEDURE INFORMATION: Exam: MR Lumbar Spine Without Contrast Exam date and time: 07/12/2021 2:00 PM Age: 55 years old Clinical indication: Low back pain; Spondylosis TECHNIQUE: Imaging protocol: Multiplanar magnetic resonance images of the lumbar spine without intravenous contrast. COMPARISON: CR Spine. Lumbosacral, complete 07/07/2018 3:02 PM FINDINGS: Vertebral body heights are maintained. No abnormal marrow signal. No cord compression. No abnormal cord signal. Conus medullaris terminates at the L1 level. Paravertebral soft tissues are unremarkable. The left kidney is absent. L1-L2: No significant canal or foraminal narrowing. L2-L3: No significant canal or foraminal narrowing. L3-L4: No significant canal or foraminal narrowing. L4-L5: No significant canal or foraminal narrowing. L5-S1: Small central disc protrusion causing mild canal narrowing. No significant foraminal narrowing. IMPRESSION: No acute findings in the lumbar spine. Electronically signed by: Vick Burnett On 07/13/2021 21:24:28 PM
== END ==
LOC: M RAD 13:07
PROVIDERS: ATTEND Pain Medicine Interventional Pain Medicine
DX: M47.817 Spondylosis without myelopathy or radiculopathy, lumbosacral region (principal)

== ENCOUNTER 2021-11-03 00:02 | Inpatient (IN) | payer BC ==
[2021-11-02] MEDS: DULoxetine 30MG CAPSULE (CYMBALTA) PO SCH (21:00)
[~2021-11-03] VITALS: Ht 165.1 cm; Wt 136.4 kg
[2021-11-03] VITALS (7 sets, daily range): BP systolic 126–141; BP diastolic 68–83; O2SAT 90
[2021-11-03] MEDS ORDERED: DULO1CAP6 PO (00:12)
[2021-11-03 01:07] LABS: BASO % 0.2 % (0.0-1.0); EOS # 0.1 10^3/uL (0.0-0.5); HEMATOCRIT 50.2 % (36.0-47.0); HEMOGLOBIN 14.4 g/dl (12.0-15.5); LYMPH # 1.1 10^3/uL (1.5-5.0); LYMPH % 11.2 % (24.0-44.0); MEAN CORPUSCULAR HEMOGLOBIN 30.1 pg (27.0-33.0); MEAN CORPUSCULAR HGB CONC 28.7 g/dl (32.0-36.5); MONO # 0.6 10^3/uL (0.0-0.8); MONO % 6.4 % (2.0-8.0); NEUTROPHILS % 80.6 % (36.0-66.0); PLATELET COUNT, AUTOMATED 156 10^3/uL (150-450); RED BLOOD COUNT 4.78 10^6/uL (4.00-5.40); WHITE BLOOD COUNT 9.9 10^3/uL (4.0-10.0)
[2021-11-03 01:21] LABS: ABG BASE EXCESS 12.3 (-2.0-2.0); ABG HCO3 44.5 MEQ/L (22.0-26.0); ABG O2 SATURATION 96.6 % (95.0-99.0); ABG PARTIAL PRESSURE O2 86.3 mmHg (75.0-100.0); ABG STANDARD HCO3 36.1 MEQ/L (22.0-26.0); ABG TOTAL CO2 47.6 MEQ/L (22.0-29.0); ABG pH (ARTERIAL) 7.259 UNITS (7.350-7.450)
[2021-11-03 01:27] LABS: ABG PARTIAL PRESSURE CO2 101.7 mmHg (35.0-45.0)
[2021-11-03] MEDS ORDERED: AZITHROMYCIN INJ 500 MG, VIAL MATE ADAPTER 1 EACH in NS 250 ML IV ONE (01:50)
[2021-11-03] MEDS ORDERED: methylPREDNISolone 125MG 2ML VIAL IV ONE (01:50)
[2021-11-03] MEDS ORDERED: cefTRIAXone SOD 1 GM in D5W MINI-BAG PLUS 50 ML IV ONE (01:50)
[2021-11-03 01:52] LABS: RSV AMPLIFICATION NEGATIVE (NEGATIVE)
[2021-11-03] MEDS ORDERED: HOME MED LIST COMPLETE! XX SCH (02:00)
[2021-11-03 02:03] LABS: BLOOD UREA NITROGEN 11 MG/DL (7-18); CARBON DIOXIDE LEVEL 43 MEQ/L (21-32); CHLORIDE LEVEL 96 MEQ/L (98-107); CREATININE FOR GFR 0.58 MG/DL (0.55-1.30); GLOMERULAR FILTRATION RATE > 60.0 (>51); GLUCOSE, FASTING 127 MG/DL (70-100); POTASSIUM SERUM 4.2 MEQ/L (3.5-5.1); SODIUM LEVEL 143 MEQ/L (136-145)
[2021-11-03] MEDS ORDERED: MOM 30ML SUSPENSION UDC PO PRN (03:45)
[2021-11-03] MEDS ORDERED: ACETAMINOPHEN TAB 650MG DOSE (2X325MG) PO PRN (03:45)
[2021-11-03] MEDS ORDERED: ALBUTEROL SULFATE 2.5 MG/0.5 ML INH NEB SOLN NEB PRN (03:50)
[2021-11-03] MEDS ORDERED: LORazepam 0.5 MG TAB PO PRN (03:55)
[2021-11-03 04:20] LABS: ABG BASE EXCESS 13.2 (-2.0-2.0); ABG HCO3 45.4 MEQ/L (22.0-26.0); ABG O2 SATURATION 97.4 % (95.0-99.0); ABG PARTIAL PRESSURE O2 95.3 mmHg (75.0-100.0); ABG TOTAL CO2 48.5 MEQ/L (22.0-29.0); ABG pH (ARTERIAL) 7.268 UNITS (7.350-7.450)
[2021-11-03 04:21] LABS: ABG PARTIAL PRESSURE CO2 101.5 mmHg (35.0-45.0)
[2021-11-03] MEDS: IPRATROPIUM 0.5MG/ALBUTEROL 2.5MG INH SOL UD 3ML (DUONEB) NEB ONE ×2 (04:39→04:47)
[2021-11-03] MEDS: DOXYCYCLINE HYCLATE 100 MG in D5W MINI-BAG PLUS 100 ML IV SCH ×2 (05:00→17:37)
[2021-11-03 06:58] LABS: HEMATOCRIT 48.5 % (36.0-47.0); MEAN CORPUSCULAR HEMOGLOBIN 29.9 pg (27.0-33.0); MEAN CORPUSCULAR HGB CONC 28.9 g/dl (32.0-36.5); MEAN CORPUSCULAR VOLUME 103.4 fl (80.0-96.0); PLATELET COUNT, AUTOMATED 146 10^3/uL (150-450); RED BLOOD COUNT 4.69 10^6/uL (4.00-5.40); WHITE BLOOD COUNT 10.5 10^3/uL (4.0-10.0)
[2021-11-03 07:36] LABS: BLOOD UREA NITROGEN 10 MG/DL (7-18); CALCIUM LEVEL 9.3 MG/DL (8.5-10.1); CARBON DIOXIDE LEVEL 44 MEQ/L (21-32); CHLORIDE LEVEL 98 MEQ/L (98-107); CREATININE FOR GFR 0.51 MG/DL (0.55-1.30); GLOMERULAR FILTRATION RATE > 60.0 (>51); GLUCOSE, FASTING 157 MG/DL (70-100); POTASSIUM SERUM 4.8 MEQ/L (3.5-5.1); SODIUM LEVEL 144 MEQ/L (136-145)
[2021-11-03] MEDS: IPRATROPIUM 0.5MG/ALBUTEROL 2.5MG INH SOL UD 3ML (DUONEB) NEB SCH ×3 (08:27→20:00)
[2021-11-03] MEDS: SYMBICORT 80/4.5MCG INHALER 6GM INH SCH ×2 (08:27→20:21)
[2021-11-03 08:29] LABS: ABG BASE EXCESS 15.4 (-2.0-2.0); ABG O2 SATURATION 98.7 % (95.0-99.0); ABG PARTIAL PRESSURE O2 134.7 mmHg (75.0-100.0); ABG STANDARD HCO3 39.5 MEQ/L (22.0-26.0); ABG TOTAL CO2 51.3 MEQ/L (22.0-29.0); ABG pH (ARTERIAL) 7.276 UNITS (7.350-7.450)
[2021-11-03 08:33] LABS: ABG PARTIAL PRESSURE CO2 105.5 mmHg (35.0-45.0)
[2021-11-03] MEDS ORDERED: predniSONE 20 MG TAB PO SCH (09:00)
[2021-11-03 10:11] LABS: ABG BASE EXCESS 13.7 (-2.0-2.0); ABG HCO3 44.2 MEQ/L (22.0-26.0); ABG O2 SATURATION 96.2 % (95.0-99.0); ABG PARTIAL PRESSURE O2 78.6 mmHg (75.0-100.0); ABG STANDARD HCO3 37.5 MEQ/L (22.0-26.0); ABG TOTAL CO2 46.8 MEQ/L (22.0-29.0); ABG pH (ARTERIAL) 7.331 UNITS (7.350-7.450)
[2021-11-03 10:16] LABS: ABG PARTIAL PRESSURE CO2 85.6 mmHg (35.0-45.0)
[2021-11-03 10:39] LABS: NT-PRO BNP 50 PG/ML (<125)
[2021-11-03] MEDS: PANTOPRAZOLE 40MG TAB (PROTONIX) PO SCH (10:44)
[2021-11-03] MEDS: ENOXAPARIN 40MG/0.4ML SYRINGE (J1650 PER 10MG) SC SCH (10:45)
[2021-11-03 15:08] LABS: ABG BASE EXCESS 14.7 (-2.0-2.0); ABG HCO3 42.2 MEQ/L (22.0-26.0); ABG O2 SATURATION 94.6 % (95.0-99.0); ABG PARTIAL PRESSURE CO2 63.5 mmHg (35.0-45.0); ABG PARTIAL PRESSURE O2 63.3 mmHg (75.0-100.0); ABG STANDARD HCO3 38.5 MEQ/L (22.0-26.0); ABG TOTAL CO2 44.1 MEQ/L (22.0-29.0)
[2021-11-03 16:36] LABS: VITAMIN B12 LEVEL 355 PG/ML
[2021-11-03] MEDS ORDERED: NYSTATIN 100,000 UNITS/GM TOPICAL PWD 15 GM TOP PRN (17:20)
[2021-11-03] MEDS: methylPREDNISolone 40MG 1ML VIAL IV SCH (17:37)
[2021-11-03] MEDS: DULoxetine 30MG CAPSULE (CYMBALTA) PO SCH (20:13)
[2021-11-04] VITALS (12 sets, daily range): BP systolic 112–136; BP diastolic 71–82
[2021-11-04] MEDS: IPRATROPIUM 0.5MG/ALBUTEROL 2.5MG INH SOL UD 3ML (DUONEB) NEB SCH ×4 (01:52→20:00)
[2021-11-04] MEDS ORDERED: cefTRIAXone SOD 1 GM in D5W MINI-BAG PLUS 50 ML IV SCH (02:00)
[2021-11-04] MEDS: methylPREDNISolone 40MG 1ML VIAL IV SCH ×3 (02:05→17:56)
[2021-11-04] MEDS: DOXYCYCLINE HYCLATE 100 MG in D5W MINI-BAG PLUS 100 ML IV SCH (04:07)
[2021-11-04 06:39] LABS: ABG BASE EXCESS 11.2 (-2.0-2.0); ABG HCO3 41.7 MEQ/L (22.0-26.0); ABG O2 SATURATION 97.9 % (95.0-99.0); ABG PARTIAL PRESSURE O2 104.2 mmHg (75.0-100.0); ABG TOTAL CO2 44.3 MEQ/L (22.0-29.0); ABG pH (ARTERIAL) 7.301 UNITS (7.350-7.450)
[2021-11-04 06:43] LABS: ABG PARTIAL PRESSURE CO2 86.4 mmHg (35.0-45.0)
[2021-11-04] MEDS: SYMBICORT 80/4.5MCG INHALER 6GM INH SCH ×2 (09:07→21:11)
[2021-11-04] MEDS: NYSTATIN 100,000 UNITS/GM TOPICAL PWD 15 GM TOP SCH ×2 (10:20→21:09)
[2021-11-04] MEDS: PANTOPRAZOLE 40MG TAB (PROTONIX) PO SCH (10:46)
[2021-11-04] MEDS: ENOXAPARIN 40MG/0.4ML SYRINGE (J1650 PER 10MG) SC SCH (10:46)
[2021-11-04 10:58] LABS: HEMATOCRIT 46.3 % (36.0-47.0); HEMOGLOBIN 13.8 g/dl (12.0-15.5); MEAN CORPUSCULAR HEMOGLOBIN 29.8 pg (27.0-33.0); MEAN CORPUSCULAR HGB CONC 29.8 g/dl (32.0-36.5); PLATELET COUNT, AUTOMATED 153 10^3/uL (150-450); RED BLOOD COUNT 4.63 10^6/uL (4.00-5.40); WHITE BLOOD COUNT 12.8 10^3/uL (4.0-10.0)
[2021-11-04 11:01] LABS: ABG BASE EXCESS 16.1 (-2.0-2.0); ABG HCO3 43.4 MEQ/L (22.0-26.0); ABG O2 SATURATION 93.3 % (95.0-99.0); ABG PARTIAL PRESSURE O2 58.9 mmHg (75.0-100.0); ABG TOTAL CO2 45.3 MEQ/L (22.0-29.0); ABG pH (ARTERIAL) 7.459 UNITS (7.350-7.450)
[2021-11-04 11:02] LABS: ABG PARTIAL PRESSURE CO2 62.5 mmHg (35.0-45.0)
[2021-11-04 11:17] LABS: BLOOD UREA NITROGEN 13 MG/DL (7-18); CARBON DIOXIDE LEVEL 41 MEQ/L (21-32); CHLORIDE LEVEL 96 MEQ/L (98-107); CREATININE FOR GFR 0.51 MG/DL (0.55-1.30); GLOMERULAR FILTRATION RATE > 60.0 (>51); GLUCOSE, FASTING 114 MG/DL (70-100); POTASSIUM SERUM 4.4 MEQ/L (3.5-5.1); SODIUM LEVEL 142 MEQ/L (136-145)
[2021-11-04 18:42] LABS: BASO % 0.2 % (0.0-1.0); LYMPH % 7.5 % (24.0-44.0); MONO # 0.5 10^3/uL (0.0-0.8); MONO % 4.1 % (2.0-8.0); NEUTROPHILS # 11.3 10^3/uL (1.5-8.5); NEUTROPHILS % 87.7 % (36.0-66.0)
[2021-11-04 18:47] LABS: PLATELET ESTIMATE NORMAL (NORMAL)
[2021-11-04] MEDS: DULoxetine 30MG CAPSULE (CYMBALTA) PO SCH (21:10)
[2021-11-05] VITALS (10 sets, daily range): BP systolic 112–130; BP diastolic 62–92; O2SAT 90
[2021-11-05] MEDS: IPRATROPIUM 0.5MG/ALBUTEROL 2.5MG INH SOL UD 3ML (DUONEB) NEB SCH ×4 (02:06→20:00)
[2021-11-05] MEDS: methylPREDNISolone 40MG 1ML VIAL IV SCH (02:20)
[2021-11-05 06:00] LABS: BASO % 0.2 % (0.0-1.0); HEMATOCRIT 46.7 % (36.0-47.0); HEMOGLOBIN 14.1 g/dl (12.0-15.5); LYMPH # 0.7 10^3/uL (1.5-5.0); MEAN CORPUSCULAR HEMOGLOBIN 29.7 pg (27.0-33.0); MEAN CORPUSCULAR HGB CONC 30.2 g/dl (32.0-36.5); MEAN CORPUSCULAR VOLUME 98.5 fl (80.0-96.0); MONO # 0.5 10^3/uL (0.0-0.8); MONO % 4.3 % (2.0-8.0); NEUTROPHILS # 9.9 10^3/uL (1.5-8.5); NEUTROPHILS % 88.8 % (36.0-66.0); PLATELET COUNT, AUTOMATED 156 10^3/uL (150-450); RED BLOOD COUNT 4.74 10^6/uL (4.00-5.40); WHITE BLOOD COUNT 11.2 10^3/uL (4.0-10.0)
[2021-11-05 06:02] LABS: ABG BASE EXCESS 9.1 (-2.0-2.0); ABG HCO3 36.2 MEQ/L (22.0-26.0); ABG O2 SATURATION 95.8 % (95.0-99.0); ABG PARTIAL PRESSURE CO2 59.7 mmHg (35.0-45.0); ABG PARTIAL PRESSURE O2 79.5 mmHg (75.0-100.0); ABG STANDARD HCO3 32.8 MEQ/L (22.0-26.0); ABG TOTAL CO2 38.1 MEQ/L (22.0-29.0); ABG pH (ARTERIAL) 7.401 UNITS (7.350-7.450)
[2021-11-05 06:32] LABS: ALBUMIN 2.5 GM/DL (3.2-5.2); ALT/SGPT 10 U/L (12-78); BILIRUBIN,TOTAL 0.2 MG/DL (0.2-1.0); BLOOD UREA NITROGEN 17 MG/DL (7-18); CALCIUM LEVEL 9.4 MG/DL (8.5-10.1); CARBON DIOXIDE LEVEL 41 MEQ/L (21-32); CHLORIDE LEVEL 97 MEQ/L (98-107); CREATININE FOR GFR 0.58 MG/DL (0.55-1.30); GLOMERULAR FILTRATION RATE > 60.0 (>51); GLUCOSE, FASTING 141 MG/DL (70-100); MAGNESIUM LEVEL 2.1 MG/DL (1.8-2.4); SODIUM LEVEL 141 MEQ/L (136-145); TOTAL PROTEIN 6.3 GM/DL (6.4-8.2)
[2021-11-05] MEDS: SYMBICORT 80/4.5MCG INHALER 6GM INH SCH ×2 (08:00→20:23)
[2021-11-05] MEDS: NYSTATIN 100,000 UNITS/GM TOPICAL PWD 15 GM TOP SCH ×2 (09:56→20:38)
[2021-11-05] MEDS: ENOXAPARIN 40MG/0.4ML SYRINGE (J1650 PER 10MG) SC SCH (09:56)
[2021-11-05] MEDS: PANTOPRAZOLE 40MG TAB (PROTONIX) PO SCH (09:56)
[2021-11-05] MEDS ORDERED: TETRAHYDROZOLINE OPHTH 0.05% 15 ML BTL OU PRN (12:15)
[2021-11-05 16:08] LABS: BODY FLUID CULTURE Not indicated. (.); LEGIONELLA ANTIGEN URINE Negative (Negative); ORGANISM ID Not indicated. (.); SPECIMEN SOURCE Urine (.); URINE STREP PNEUMONIAE ANTIGEN Negative (Negative)
[2021-11-05] MEDS: predniSONE 20 MG TAB PO SCH (16:39)
[2021-11-05] MEDS: DULoxetine 30MG CAPSULE (CYMBALTA) PO SCH (20:38)
[2021-11-06] MEDS: IPRATROPIUM 0.5MG/ALBUTEROL 2.5MG INH SOL UD 3ML (DUONEB) NEB SCH ×2 (01:31→07:57)
[2021-11-06 05:56] VITALS: BP 118/62
[2021-11-06 06:16] LABS: BASO % 0.1 % (0.0-1.0); EOS % 0.1 % (0.0-3.0); HEMOGLOBIN 13.7 g/dl (12.0-15.5); LYMPH # 1.5 10^3/uL (1.5-5.0); LYMPH % 15.1 % (24.0-44.0); MEAN CORPUSCULAR HEMOGLOBIN 29.6 pg (27.0-33.0); MEAN CORPUSCULAR HGB CONC 29.8 g/dl (32.0-36.5); MEAN CORPUSCULAR VOLUME 99.4 fl (80.0-96.0); MONO # 0.9 10^3/uL (0.0-0.8); MONO % 8.7 % (2.0-8.0); NEUTROPHILS # 7.5 10^3/uL (1.5-8.5); NEUTROPHILS % 75.7 % (36.0-66.0); PLATELET COUNT, AUTOMATED 153 10^3/uL (150-450); RED BLOOD COUNT 4.63 10^6/uL (4.00-5.40)
[2021-11-06 06:40] LABS: ALBUMIN 2.7 GM/DL (3.2-5.2); ALT/SGPT 10 U/L (12-78); BILIRUBIN,TOTAL 0.3 MG/DL (0.2-1.0); BLOOD UREA NITROGEN 14 MG/DL (7-18); CARBON DIOXIDE LEVEL 43 MEQ/L (21-32); CHLORIDE LEVEL 101 MEQ/L (98-107); CREATININE FOR GFR 0.54 MG/DL (0.55-1.30); GLOMERULAR FILTRATION RATE > 60.0 (>51); GLUCOSE, FASTING 96 MG/DL (70-100); MAGNESIUM LEVEL 2.2 MG/DL (1.8-2.4); POTASSIUM SERUM 3.8 MEQ/L (3.5-5.1); SODIUM LEVEL 145 MEQ/L (136-145); TOTAL PROTEIN 5.5 GM/DL (6.4-8.2)
[2021-11-06 07:00] VITALS: O2SAT 90
[2021-11-06] MEDS: SYMBICORT 80/4.5MCG INHALER 6GM INH SCH (07:58)
[2021-11-06] MEDS: PANTOPRAZOLE 40MG TAB (PROTONIX) PO SCH (09:51)
[2021-11-06] MEDS: predniSONE 20 MG TAB PO SCH (09:51)
[2021-11-06] MEDS: ENOXAPARIN 40MG/0.4ML SYRINGE (J1650 PER 10MG) SC SCH (09:52)
[2021-11-06] MEDS: NYSTATIN 100,000 UNITS/GM TOPICAL PWD 15 GM TOP SCH (09:53)
[2021-11-06] MEDS ORDERED: PRED10TA2 PO (10:05)
[2021-11-06 11:30] VITALS: O2SAT 88
== END 2021-11-06 13:46 | disposition home or self-care (01) | DRG 133 ==
LOC: M ED 00:02 → M ED INP 03:45 → ENRESERV 13:45 → M PCU 14:53 → M MSPAV 11-05 18:12
PROVIDERS: ADMIT Family Medicine; ATTEND Family Medicine
DX: J96.22 Acute and chronic respiratory failure with hypercapnia (principal); G93.41 Metabolic encephalopathy; Z99.81 Dependence on supplemental oxygen; E87.2 Acidosis; D75.1 Secondary polycythemia; J44.1 Chronic obstructive pulmonary disease with (acute) exacerbation; E66.01 Morbid (severe) obesity due to excess calories; Z68.43 Body mass index [BMI] 50.0-59.9, adult; F32.A Depression, unspecified; F41.9 Anxiety disorder, unspecified; E78.5 Hyperlipidemia, unspecified; K58.0 Irritable bowel syndrome with diarrhea; R91.8 Other nonspecific abnormal finding of lung field; Z90.49 Acquired absence of other specified parts of digestive tract; F17.200 Nicotine dependence, unspecified, uncomplicated; Z90.5 Acquired absence of kidney; Z20.822 Contact with and (suspected) exposure to COVID-19; Z79.899 Other long term (current) drug therapy; Z91.040 Latex allergy status; K21.9 Gastro-esophageal reflux disease without esophagitis; M48.00 Spinal stenosis, site unspecified; E55.9 Vitamin D deficiency, unspecified; J96.21 Acute and chronic respiratory failure with hypoxia

== ENCOUNTER → 2021-12-10 | Outpatient (CLI) | payer BC ==
[~2021-12-10] MED LIST changes: +DULO1CAP6 PO
== END ==
LOC: M SLEEP 20:00
PROVIDERS: ATTEND Physician Assistant
DX: G47.33 Obstructive sleep apnea (adult) (pediatric) (principal)

== ENCOUNTER → 2022-02-17 | Outpatient (CLI) | payer BC | LOC: M RAD 10:45 | PROVIDERS: ATTEND Physician Assistant | DX: Z87.891 Personal history of nicotine dependence (principal) ==

== ENCOUNTER → 2022-03-05 | Outpatient (CLI) | payer BC | LOC: M SLEEP 20:00 | PROVIDERS: ATTEND Physician Assistant | DX: G47.33 Obstructive sleep apnea (adult) (pediatric) (principal) ==

== ENCOUNTER → 2022-03-17 | Outpatient (CLI) | payer BC ==
[~2022-03-17] MED LIST changes: +ALBU2.5V10 NEB; -ALBU83IN NEB
== END ==
LOC: M RAD 13:17
PROVIDERS: ATTEND Physician Assistant
DX: Z12.2 Encounter for screening for malignant neoplasm of respiratory organs (principal); Z87.891 Personal history of nicotine dependence

== ENCOUNTER → 2022-06-23 | Outpatient (CLI) | payer BC ==
[2022-06-23 15:08] LABS: BLOOD UREA NITROGEN 11 MG/DL (7-18); CALCIUM LEVEL 9.3 MG/DL (8.5-10.1); CARBON DIOXIDE LEVEL 38 MEQ/L (21-32); CHLORIDE LEVEL 103 MEQ/L (98-107); CREATININE FOR GFR 0.65 MG/DL (0.55-1.30); GLOMERULAR FILTRATION RATE > 60.0 (>51); GLUCOSE, FASTING 119 MG/DL (70-100); POTASSIUM SERUM 4.3 MEQ/L (3.5-5.1); SODIUM LEVEL 145 MEQ/L (136-145)
== END ==
LOC: M LAB 13:37
PROVIDERS: ATTEND Urology
DX: C64.2 Malignant neoplasm of left kidney, except renal pelvis (principal)

== ENCOUNTER → 2022-06-26 | Outpatient (CLI) | payer BC ==
[~2022-06-26] MED LIST changes: +GASTROGRAFIN SOLUTION 30ML (Q9963) As Ordered ONE; +ISOVUE-370 76% 100ML VIAL As Ordered ONE
== END ==
LOC: M RAD 08:58
PROVIDERS: ATTEND Urology
DX: C64.2 Malignant neoplasm of left kidney, except renal pelvis (principal); Z90.5 Acquired absence of kidney
CPT/HCPCS: 74177; Q9963; Q9967

== ENCOUNTER → 2022-09-23 | Outpatient (REF) | payer BC ==
[~2022-09-23] MED LIST changes: -GASTROGRAFIN SOLUTION 30ML (Q9963) As Ordered ONE; -ISOVUE-370 76% 100ML VIAL As Ordered ONE
== END ==
LOC: M LAB REF 17:31
PROVIDERS: ATTEND Nurse Practitioner Family
DX: Z85.528 Personal history of other malignant neoplasm of kidney (principal)

== ENCOUNTER → 2022-12-08 | Outpatient (CLI) | payer BC | LOC: M RAD 11:33 | PROVIDERS: ATTEND Internal Medicine Critical Care Medicine | DX: R60.0 Localized edema (principal) ==

== ENCOUNTER 2023-04-04 11:22 | Emergency (ER) | payer BC ==
[~2023-04-04] VITALS: Ht 165.1 cm; Wt 136.4 kg
[~2023-04-04 11:22] MED LIST changes: +FLUT50SP17 NARES; -FLUTISP NARES; +LORA1TAB23 PO; -LORA1TAB4 PO
[2023-04-04] MEDS ORDERED: LACTULOSE 20GM/30ML SYRUP UDC PO ONE (14:40)
[2023-04-04] MEDS ORDERED: LACT20EL PO (14:44)
[2023-04-04 14:52] VITALS: BP 158/88
== END 2023-04-04 15:02 | disposition home or self-care (01) ==
LOC: M ED 11:22
DX: K59.00 Constipation, unspecified (principal); F41.9 Anxiety disorder, unspecified; F32.A Depression, unspecified; E78.5 Hyperlipidemia, unspecified; K58.9 Irritable bowel syndrome, unspecified; G47.33 Obstructive sleep apnea (adult) (pediatric); F17.200 Nicotine dependence, unspecified, uncomplicated; Z91.048 Other nonmedicinal substance allergy status

== ENCOUNTER → 2023-05-10 | Outpatient (CLI) | payer BC ==
[~2023-05-10] MED LIST changes: +LACT20EL PO
== END ==
LOC: M CARPUL 10:33
PROVIDERS: ATTEND Internal Medicine Critical Care Medicine
DX: I27.20 Pulmonary hypertension, unspecified (principal)

== ENCOUNTER → 2023-06-23 | Outpatient (REF) | payer BC ==
[~2023-06-23] MED LIST changes: +DICL100G10 TOP; -DICL1GEL3 TOP
== END ==
LOC: M SFHCWAGY 13:09
PROVIDERS: ATTEND Obstetrics & Gynecology
DX: N95.0 Postmenopausal bleeding (principal)

== ENCOUNTER → 2023-07-01 | Outpatient (CLI) | payer BC | LOC: M WHC 13:34 | PROVIDERS: ATTEND Obstetrics & Gynecology | DX: N95.0 Postmenopausal bleeding (principal) ==

== ENCOUNTER → 2023-08-20 | Outpatient (CLI) | payer BC ==
[~2023-08-20] MED LIST changes: +ISOVUE-370 76% 100ML VIAL As Ordered ONE
== END ==
LOC: M RAD 09:06
PROVIDERS: ATTEND Urology
DX: C64.2 Malignant neoplasm of left kidney, except renal pelvis (principal); Z90.5 Acquired absence of kidney
CPT/HCPCS: 74170; Q9967

== ENCOUNTER → 2023-11-19 | Outpatient (CLI) | payer BC ==
[~2023-11-19] MED LIST changes: +BUPR-71; -EFFE37.5 PO; +EFFE37.52 PO; -FLUT50SP17 NARES; +FLUTISP NARES; -ISOVUE-370 76% 100ML VIAL As Ordered ONE
== END ==
LOC: M RAD 15:47
PROVIDERS: ATTEND Internal Medicine Critical Care Medicine
DX: Z12.2 Encounter for screening for malignant neoplasm of respiratory organs (principal); F17.218 Nicotine dependence, cigarettes, with other nicotine-induced disorders

== ENCOUNTER 2023-12-13 04:49 | Emergency (ER) | payer BC ==
[~2023-12-13] VITALS: Ht 165.1 cm; Wt 130.4 kg
[2023-12-13] MEDS ORDERED: DILT180C70 (05:05)
[2023-12-13 06:06] LABS: VENOUS BASE EXCESS 8.8 (-2.0-2.0); VENOUS HCO3 38.6 MMOL/L (23.0-27.0); VENOUS O2 SATURATION 91.2 % (60.0-80.0); VENOUS PARTIAL PRESSURE O2 62.5 mmHg (30.0-50.0); VENOUS PH 7.301 UNITS (7.330-7.430); VENOUS STANDARD HCO3 32.4 MMOL/L
[2023-12-13 06:12] LABS: BASO % 0.3 % (0.0-1.0); EOS # 0.2 10^3/uL (0.0-0.5); EOS % 2.2 % (0.0-3.0); HEMATOCRIT 43.5 % (36.0-47.0); HEMOGLOBIN 13.5 g/dl (12.0-15.5); LYMPH # 1.2 10^3/uL (1.5-5.0); LYMPH % 12.6 % (24.0-44.0); MEAN CORPUSCULAR HEMOGLOBIN 29.9 pg (27.0-33.0); MEAN CORPUSCULAR VOLUME 96.5 fl (80.0-96.0); MONO # 0.9 10^3/uL (0.0-0.8); MONO % 9.2 % (2.0-8.0); NEUTROPHILS # 7.3 10^3/uL (1.5-8.5); NEUTROPHILS % 74.9 % (36.0-66.0); PLATELET COUNT, AUTOMATED 176 10^3/uL (150-450); RED BLOOD COUNT 4.51 10^6/uL (4.00-5.40); WHITE BLOOD COUNT 9.8 10^3/uL (4.0-10.0)
[2023-12-13 06:44] LABS: ALBUMIN 2.8 G/DL (3.2-5.2); ALKALINE PHOSPHATASE 232 U/L (46-116); ALT/SGPT 51 U/L (7.0-40); AST/SGOT 32 U/L (<34); BILIRUBIN,DIRECT 0.2 MG/DL (<0.4); BILIRUBIN,TOTAL 0.5 MG/DL (0.3-1.2); BLOOD UREA NITROGEN 14 MG/DL (9-23); CALCIUM LEVEL 9.5 MG/DL (8.5-10.1); CARBON DIOXIDE LEVEL 40 MMOL/L (20-31); CHLORIDE LEVEL 101 MMOL/L (98-107); CK-MB VALUE MASS < 1.0 NG/ML (<3.6); CPK CREATINE PHOSPHOKINASE 24 U/L (34-145); CREATININE FOR GFR 0.65 MG/DL (0.55-1.30); GLOMERULAR FILTRATION RATE > 60.0 (>51); GLUCOSE, FASTING 135 MG/DL (60-100); MB/CK RELATIVE INDEX 4.16 (< OR =4); POTASSIUM SERUM 4.4 MMOL/L (3.5-5.1); SODIUM LEVEL 141 MMOL/L (136-145)
[2023-12-13 06:48] LABS: THYROID STIMULATING HORMONE 1.038 uIU/ML (0.55-4.78); THYROXINE (T4) 10.3 UG/DL (4.5-10.9)
[2023-12-13] MEDS ORDERED: ISOVUE-370 76% 100ML VIAL As Ordered ONE (07:57)
[2023-12-13] MEDS ORDERED: DOXY100C3 PO (08:58)
[2023-12-13] MEDS ORDERED: DOXYCYCLINE HYCLATE 100MG TABLET PO ONE (09:00)
[2023-12-13 09:26] VITALS: BP 117/75; TEMP 96.8; O2SAT 96
== END 2023-12-13 09:32 | disposition home or self-care (01) ==
LOC: M ED 04:49
DX: J18.9 Pneumonia, unspecified organism (principal); J44.9 Chronic obstructive pulmonary disease, unspecified; Z91.048 Other nonmedicinal substance allergy status; F17.200 Nicotine dependence, unspecified, uncomplicated; Z11.52 Encounter for screening for COVID-19
CPT/HCPCS: 36415; 71045; 71275; 80048; 80076; 82550; 82553; 82803; 83605; 83880; 84436; 84443; 85025; 87040; 87486; 87581; 87633; 87798; 93005; 93041; 94760; 99284; Q9967

== ENCOUNTER → 2023-12-21 | Outpatient (CLI) | payer BC ==
[~2023-12-21] MED LIST changes: +DILT180C70; +DOXY100C3 PO
== END ==
LOC: M ONCM 07:34
PROVIDERS: ATTEND Dietitian, Registered
DX: F41.9 Anxiety disorder, unspecified (principal); F32.A Depression, unspecified; Z85.528 Personal history of other malignant neoplasm of kidney; D75.1 Secondary polycythemia; R91.8 Other nonspecific abnormal finding of lung field; Z71.3 Dietary counseling and surveillance; Z87.891 Personal history of nicotine dependence; Z68.42 Body mass index [BMI] 45.0-49.9, adult; Z90.5 Acquired absence of kidney

== ENCOUNTER → 2023-12-29 | Outpatient (CLI) | payer BC | LOC: M WUC 14:24 | PROVIDERS: ATTEND Internal Medicine | DX: J18.9 Pneumonia, unspecified organism (principal) ==

== ENCOUNTER → 2024-02-03 | Outpatient (CLI) | payer BC ==
[2024-02-03 18:31] LABS: BASO % 0.4 % (0.0-1.0); EOS # 0.3 10^3/uL (0.0-0.5); EOS % 2.4 % (0.0-3.0); HEMATOCRIT 47.7 % (36.0-47.0); HEMOGLOBIN 14.8 g/dl (12.0-15.5); LYMPH # 2.3 10^3/uL (1.5-5.0); LYMPH % 21.2 % (24.0-44.0); MEAN CORPUSCULAR HEMOGLOBIN 30.6 pg (27.0-33.0); MEAN CORPUSCULAR VOLUME 98.8 fl (80.0-96.0); MONO # 0.7 10^3/uL (0.0-0.8); MONO % 6.3 % (2.0-8.0); NEUTROPHILS # 7.5 10^3/uL (1.5-8.5); PLATELET COUNT, AUTOMATED 224 10^3/uL (150-450); RED BLOOD COUNT 4.83 10^6/uL (4.00-5.40); WHITE BLOOD COUNT 10.9 10^3/uL (4.0-10.0)
[2024-02-03 19:01] LABS: ALBUMIN 3.4 G/DL (3.2-5.2); ALKALINE PHOSPHATASE 209 U/L (46-116); ALT/SGPT 36 U/L (7.0-40); AST/SGOT 24 U/L (<34); BILIRUBIN,TOTAL 0.3 MG/DL (0.3-1.2); BLOOD UREA NITROGEN 19 MG/DL (9-23); CALCIUM LEVEL 9.7 MG/DL (8.5-10.1); CARBON DIOXIDE LEVEL 40 MMOL/L (20-31); CHLORIDE LEVEL 102 MMOL/L (98-107); CREATININE FOR GFR 0.81 MG/DL (0.55-1.30); GLOMERULAR FILTRATION RATE > 60.0 (>51); GLUCOSE, FASTING 87 MG/DL (60-100); POTASSIUM SERUM 4.3 MMOL/L (3.5-5.1); SODIUM LEVEL 143 MMOL/L (136-145); TOTAL PROTEIN 6.7 G/DL (5.7-8.2)
== END ==
LOC: M WUC 15:27
PROVIDERS: ATTEND Internal Medicine
DX: J44.9 Chronic obstructive pulmonary disease, unspecified (principal)

== ENCOUNTER → 2024-11-24 | Outpatient (CLI) | payer BC ==
[~2024-11-24] MED LIST changes: -ADV250INH INH; +ADVA1AER9 INH; +ALBU8.5H; +ATIV1TAB10; +LINZ290C; +TIRZ5PEN3
== END ==
LOC: M WUC 15:44
PROVIDERS: ATTEND Internal Medicine
DX: J44.9 Chronic obstructive pulmonary disease, unspecified (principal); J84.9 Interstitial pulmonary disease, unspecified

== ENCOUNTER → 2024-12-14 | Outpatient (CLI) | payer BC | LOC: M RAD 16:17 | PROVIDERS: ATTEND Internal Medicine Critical Care Medicine | DX: Z12.2 Encounter for screening for malignant neoplasm of respiratory organs (principal); F17.218 Nicotine dependence, cigarettes, with other nicotine-induced disorders ==